=== PATIENT | female | born 1945 | race Caucasian/White ===

== ENCOUNTER → 2017-09-27 | Outpatient (CLI) | payer OTHER ==
[2016-05-25 13:31] VITALS: BP 167/100
--- NOTE | 2017-09-27 16:26 | MG ---
HISTORY: SCREENING Comparison: Multiple priors dating back to August 25, 2010 FINDINGS: Bilateral CC and MLO projections of the right and left breast were obtained. Heterogeneously dense f ibroglandular tissue is seen to be present without significant interval change. No suspicious isreal ectural distortion, mass or clustered microcalcifications can be observed to suggest malignancy. No skin thickening or nipple retraction is appreciated. No pathological lymphadenopathy can be identif ied. Benign-appearing calcifications are noted within the right and left breast. IMPRESSION: NO RADIOGRAPHIC EVIDENCE OF MALIGNANCY. ACR CATEGORY 2 - benign findings. FOLLOW-UP EXAM 1 YEAR. Diagnostic CAD was utilized and reviewed. * 0 (ZERO) - ASSESSMENT INCOMPLETE; ADDITIONAL IMAGING IS NEEDED. * 1/ (ONE) - NEGATIVE. * 2/II (TWO) - BENIGN FINDINGS. * 3/III (THREE) - PROBABLY BENIGN FINDING; SHORT INTERVAL FOLLOW-UP SUGGESTED. * 4/IV (FOUR) - SUSPICIOUS ABNORMALITY; BIOPSY SHOULD BE CONSIDERED. * 5/V - HIGHLY SUSPICIOUS OF MALIGNANCY; BIOPSY SHOULD BE PERFORMED. A NEGATIVE X-RAY REPORT SHOULD NOT DELAY BIOPSY IF A DOMINANT OR CLINICALLY SUSPICIOUS MASS IS PRESENT; 4 TO 8 PERCENT OF CANCERS ARE NOT IDENTIFIED BY X-RAY. A NEGA TIVE REPORT MAY REINFORCE THE CLINICAL IMPRESSION. ADENOSIS AND DENSE BREASTS MAY OBSCURE AN UNDERLY ING NEOPLASM. Reported By:
== END ==
LOC: RAD 11:02
PROVIDERS: ATTEND Internal Medicine
DX: Z12.31 Encounter for screening mammogram for malignant neoplasm of breast (principal)
CPT/HCPCS: 77067

== ENCOUNTER → 2018-01-11 | Outpatient (CLI) | payer OTHER ==
[2016-05-25 13:31] VITALS: BP 167/100
[2018-01-11 08:58] LABS: CREATININE 1.17 mg/dL (0.55-1.02)
--- NOTE | 2018-01-11 09:59 | CT ---
History: Abnormal uterine in vaginal bleeding Study: CT abdomen and pelvis with IV and oral contrast Findings: Thin-section axial images were obtained from the diaphragm through the symphysis after IV a nd oral contrast was given. The liver is without focal defect or intrahepatic ductal dilatation. The gallbladder is absent. There is a moderate size hiatal hernia seen. No focal distension of small or large bowel is evident the ap pendix is not appear enlarged or inflamed. The spleen, pancreas and adrenal glands appear intact. The kidneys show no hydronephrosis or solid mass. There is a 1.3 cm cyst of the left mid renal pole. No mesenteric nor retroperitoneal lymphadenopathy is evident. There is no pelvic mass seen. The urinary bladder appears intact. The uterus appears of normal size. It is retroverted new. There is a suggestion of mild prominence of the endometrial canal. Correlation with ultrasound would be useful. No pelvic adenopathy or ascites is seen. No adnexal mass is identified. The images through the lung bases appear intact. There is spondylosis within the lumbar spine. No acu te osseous abnormality is identified Impression: 1. No obvious uterine enlargement or mass. There is some prominence of the endometrial canal. Correla tion with ultrasound would be useful. No adnexal masses identified. 2. Moderate size hiatal hernia. 3. 1.3 cm left midpole renal cyst. 4. Lumbar spondylosis Reported By:
== END | disposition home or self-care (01) | DRG 761 ==
LOC: RAD 08:31
PROVIDERS: ATTEND Internal Medicine
DX: N93.9 Abnormal uterine and vaginal bleeding, unspecified (principal); R97.1 Elevated cancer antigen 125 [CA 125]; R10.30 Lower abdominal pain, unspecified; K44.9 Diaphragmatic hernia without obstruction or gangrene; N28.1 Cyst of kidney, acquired; M47.896 Other spondylosis, lumbar region
CPT/HCPCS: 36415; 74177; 82565; 84520; A4222

== ENCOUNTER 2022-08-30 17:59 | Observation (INO) ==
--- NOTE | 2022-08-30 19:46 | DR.GENAD ---
HPI Time Seen Time Seen by Provider: 08/30/22 19:46 PCP Primary Care Physician: james Complaint/Symptoms Chief Complaint:: pt states she started with coughing yesterday and is coughing up clear mucous. pt hasnt ate much in the last few days and has had some sob. Nurses notes reviewed Nurses Notes Review: Yes Source History Provided: Patient Mode of Arrival Mode of Arrival: Wheelchair Timing Onset of Chief Complaint: 08/29/22 PMH PMH Past Medical History: Yes Past Medical History: Diabetes and Hypertension Past Surgical History: Yes Surgical History: Appendectomy, Cholecystectomy and Hysterectomy Past Surgical History Comment: dnc, cataracts Family History History of Family Medical Conditions: Yes Family Medical History: Diabetes Mellitus and Coronary Artery Disease Family Medical History Comment: cva Social History Does patient currently use any type of tobacco product: No Have you used tobacco products in the last 12 months: No Type of Tobacco Use: None Does any household member use tobacco: No Alcohol Use: None Do you use any recreational Drugs:: No Lives With: Alone Lives Where: Home Infectious screening In the last 2 months have you had wt loss of >10#?: NO Have you had fever, night sweats or hemotysis?: No Have you traveled outside the country in the last 6 months?: No Isolation: Standard PE Vital Signs Vitals: Pulse Rate 83 Respiratory Rate 18 Blood Pressure [Left Arm] 134/62 Blood Pressure 158/69 O2 Sat by Pulse Oximetry 99 ROR Labs Reviewed Result Diagrams: 08/30/22 19:56 08/30/22 19:56 Laboratory: WBC 6.4 X10^3/uL (3.6-10.0) 08/30/22 19:56 RBC 2.89 X10^6/uL (3.5-5.4) L 08/30/22 19:56 Hgb 6.3 g/dL (12.0-16.0) L* 08/30/22 19:56 Hct 19.9 % (36.0-47.0) L* 08/30/22 19:56 MCV 69.1 fL (80.0-100.0) L 08/30/22 19:56 MCH 21.7 pg (27.0-34.0) L 08/30/22 19:56 MCHC 31.4 g/dL (33.0-35.0) L 08/30/22 19:56 RDW 16.8 % (11.6-16.5) H 08/30/22 19:56 Plt Count 247 X10^3/uL (150.0-450.0) 08/30/22 19:56 Plt Count Comment Adequate (ADEQUATE) 08/30/22 19:56 MPV 7.2 fL (7.4-11.0) L 08/30/22 19:56 Neut % (Auto) 69.2 % (42.0-75.0) 08/30/22 19:56 Lymph % (Auto) 16.2 % (21.0-51.0) L 08/30/22 19:56 [place] % (Auto) 12.7 % (0.0-13.0) 08/30/22 19:56 Eos % (Auto) 1.0 % (0.9-2.9) 08/30/22 19:56 Baso % (Auto) 0.9 % (0.2-1.0) 08/30/22 19:56 Neut # (Auto) 4.4 x10^3/uL (2.2-4.8) 08/30/22 19:56 Lymph # (Auto) 1.0 X10^3/uL (1.3-2.9) L 08/30/22 19:56 [place] # (Auto) 0.8 x10^3/uL (0.3-0.8) 08/30/22 19:56 Eos # (Auto) 0.1 x10^3/uL (0.0-0.2) 08/30/22 19:56 Baso # (Auto) 0.1 X10^3/uL (0.0-0.1) 08/30/22 19:56 Absolute Nucleated RBC 0.0 /100WBC 08/30/22 19:56 Plt Morphology Comment Normal (NORMAL) 08/30/22 19:56 RBC Morphology Abnormal (NORMAL) A 08/30/22 19:56 Poikilocytosis Slight A 08/30/22 19:56 Anisocytosis Slight A 08/30/22 19:56 Microcytosis Slight A 08/30/22 19:56 Sodium 135 mmol/L (136-145) L 08/30/22 19:56 Corrected Sodium 137 mmol/L (136-145) 08/30/22 19:56 Potassium 3.9 mmol/L (3.5-5.1) 08/30/22 19:56 Chloride 99 mmol/L (98-107) 08/30/22 19:56 Carbon Dioxide 23.4 mmol/L (21-32) 08/30/22 19:56 BUN 16 mg/dL (7-18) 08/30/22 19:56 Creatinine 1.53 mg/dL (0.55-1.02) H 08/30/22 19:56 Est GFR (MDRD) Af Amer 42 (>60) L 08/30/22 19:56 Est GFR (MDRD) Non-Af 35 (>60) L 08/30/22 19:56 Glucose 171 mg/dL (65-99) H 08/30/22 19:56 Calcium 8.0 mg/dL (8.5-10.1) L 08/30/22 19:56 Corrected Calcium 8.6 mg/dL (8.5-10.1) 08/30/22 19:56 Total Bilirubin 0.60 mg/dL (0.2-1.0) 08/30/22 19:56 AST 13 Units/L (15-37) L 08/30/22 19:56 ALT 11 Units/L (12-78) L 08/30/22 19:56 Alkaline Phosphatase 82 Units/L (46-116) 08/30/22 19:56 Creatine Kinase 98 Units/L (26-192) 08/30/22 19:56 Troponin I High Sens 10.5 ng/L (4.0-60.0) 08/30/22 19:56 Total Protein 7.1 g/dL (6.4-8.2) 08/30/22 19:56 Albumin 3.2 g/dL (3.4-5.0) L 08/30/22 19:56 Globulin 3.9 g/dL (2.5-4.5) 08/30/22 19:56 Albumin/Globulin Ratio 0.8 Ratio (1.1-2.1) L 08/30/22 19:56 SARS-CoV-2 (PCR) Positive (NEGATIVE) A 08/30/22 19:39 Influenza Type A (PCR) Negative (NEGATIVE) 08/30/22 19:39 Influenza Type B (PCR) Negative (NEGATIVE) 08/30/22 19:39 RSV (PCR) Negative (NEGATIVE) 08/30/22 19:39 Opioid Opioid Risk Tool Total: 0 Total Score Risk Category: Low Risk Copyright: Luisito FITCH predicting aberrant behaviors Discharge Plan Diagnosis Discharge Problem: Anemia, COVID-19 virus infection, Bronchitis Discharge Plan Patient Disposition: HOME, SELF-CARE Condition: Stable Prescriptions: No Action losartan 50 MG tablet 50 mg PO DAILY metoprolol succinate 50 MG tablet extended release 24 hr 50 mg PO DAILY levothyroxine 25 MCG tablet 25 mcg PO DAILY Health Concerns: Post Hospitalization: new medications and changes needed to prevent readmission or further decline. Pt educated and given instructions on all concerns. Plan of Treatment: Continue with present treatment and follow up plan. Pt is to keep follow up appointment as instructed and take medications as ordered. Orders to Discharge Patient Discharge Orders: Transfer (Routine); Ordered 08/30/22 Ordered By: WOJCIECH HYDE Follow ups/Referrals Follow ups/Referrals: Dionte Holland [Primary Care Provider] - 3 days
--- NOTE | 2022-08-30 19:52 | EKG ---
Test Reason : WEAKNESS Blood Pressure : */* mmHG Vent. Rate : 80 BPM Atrial Rate : 80 BPM P-R Int : 164 ms QRS Dur : 78 ms QT Int : 394 ms P-R-T Axes : 89 20 36 degrees QTc Int : 454 ms Normal sinus rhythm Nonspecific ST and T wave abnormality Abnormal ECG No previous ECGs available Confirmed by Krunal Hassan ([id number]) on 08/31/2022 10:27:12 AM Referred By: Confirmed By: Krunal Hassan
[2022-08-30 20:19] LABS: ALBUMIN 3.2 g/dL (3.4-5.0); CARBON DIOXIDE 23.4 mmol/L (21-32); COR CA(FOR HYPOALB) 8.6 mg/dL (8.5-10.1); CREATININE 1.53 mg/dL (0.55-1.02); TOTAL PROTEIN 7.1 g/dL (6.4-8.2)
[2022-08-30 20:26] LABS: BASOPHILS # (AUTO) 0.1 X10^3/uL (0.0-0.1); BASOPHILS % (AUTO) 0.9 % (0.2-1.0); EOSINOPHILS # (AUTO) 0.1 x10^3/uL (0.0-0.2); LYMPHOCYTES % (AUTO) 16.2 % (21.0-51.0); MEAN CORPUSCULAR HEMOGLOBIN 21.7 pg (27.0-34.0); MEAN CORPUSCULAR HGB CONC 31.4 g/dL (33.0-35.0); MEAN CORPUSCULAR VOLUME 69.1 fL (80.0-100.0); MEAN PLATELET VOLUME 7.2 fL (7.4-11.0); MONOCYTES # (AUTO) 0.8 x10^3/uL (0.3-0.8); MONOCYTES % (AUTO) 12.7 % (0.0-13.0); NEUTROPHILS # (AUTO) 4.4 x10^3/uL (2.2-4.8); NEUTROPHILS % (AUTO) 69.2 % (42.0-75.0); RED BLOOD COUNT 2.89 X10^6/uL (3.5-5.4); RED CELL DISTRIBUTION WIDTH 16.8 % (11.6-16.5); WHITE BLOOD COUNT 6.4 X10^3/uL (3.6-10.0)
[2022-08-30 20:28] LABS: HEMATOCRIT 19.9 % (36.0-47.0); HEMOGLOBIN 6.3 g/dL (12.0-16.0)
[2022-08-30 20:29] LABS: ANISOCYTOSIS SLIGHT; MICROCYTOSIS SLIGHT; PLATELET MORPHOLOGY COMMENT NORMAL (NORMAL); POIKILOCYTOSIS SLIGHT
[2022-08-30] MEDS ORDERED: ROCEPHIN VIAL 1 GRAM ONE (21:16)
[2022-08-30] MEDS ORDERED: TESSALON PERLES PO ONE (21:16)
[2022-08-30] MEDS ORDERED: NS 100 ML IV 100 ML ONE (21:17)
[2022-08-30] MEDS: TESSALON PERLES PO PRN (21:23)
[2022-08-30] MEDS ORDERED: ROCEPHIN 1 GRAM IV PREMIX 1 G/50 ML IV.SOLN. IV SCH (22:00)
[2022-08-30 22:02] LABS: IRON 16 ug/dL (50-175)
[2022-08-30] MEDS ORDERED: NS 250 ML IV 250 ML IV PRN (22:17)
[2022-08-30] MEDS ORDERED: NS 250 ML IV 250 ML IV ONE (22:19)
[2022-08-30] MEDS ORDERED: TYLENOL 325 MG TAB PO PRN (22:38)
[2022-08-30] MEDS ORDERED: TYLENOL 325 MG TAB PO ONE (22:41)
--- NOTE | 2022-08-30 22:50 | RAD ---
HISTORYpt states she started with coughing yesterday and is coughing up clear mucous. pt hasnt ate much in the last few days and has had some sob.STUDYCHEST, 1 VIEWCOMPARISONNone availableTECHNIQUEChest radiographic imaging, AP portable projection, 1 imageFINDINGSNo cardiomegaly.No focal airspace disease.No pleural effusion.No pneumothorax.No acute osseous abnormality.Nonspecific elevation of the right diaphragm.IMPRESSIONNo imaging findings of acute cardiopulmonary disease.Electronically signed by: Mikey English (Aug 30, 2022 22:48:09)
[2022-08-30 22:56] VITALS: BMI 28.5
[2022-08-31] MEDS ORDERED: NS 250 ML IV 250 ML IV ONE (01:17)
[2022-08-31 07:06] LABS: HEMATOCRIT 25.8 % (36.0-47.0)
[2022-08-31 07:09] LABS: HEMOGLOBIN 8.5 g/dL (12.0-16.0)
[2022-08-31] MEDS ORDERED: REMDESIVIR 200 MG in NS 250 ML IV 250 ML IV ONE (08:24)
[2022-08-31] MEDS: DUONEB 0.5 MG/3 MG (3 mL) NEB SCH ×2 (08:35→20:42)
[2022-08-31] MEDS ORDERED: PAXLOVID CO-PACK (EUA) PO SCH (09:00)
[2022-08-31] MEDS ORDERED: NS 100 ML IV 100 ML ONE (09:29)
--- NOTE | 2022-08-31 16:53 | DR.H&P ---
H&P - History & Physical for Day of: H&P Date: 08/30/22 - Chief Complaint Chief Complaint: COUGH, SHORTNESS OF BREATH, WEAKNESS, DECREASED ORAL INTAKE - History of Present Illness History of Present Illness: IS A 77 YEAR OLD PATIENT OF OURS. SHE PRESENTED TO THE ER WITH COMPLAINTS OF COUGH, SHORTNESS OF BREATH, GENERALIZED WEAKNESS, AND DECREASED ORAL INTAKE. PATIENT REPORTS THAT SYMPTOMS STARTED 2-3 DAYS AGO. COUGH IS PRODUCTIVE OF THICK, CLEAR MUCUS. HER PMH INCLUDES: DM II, HTN, APPENDECTOMY, CHOLECYSTECTOMY, HYSTERECTOMY, D&C, AND CATARACTS. ON ARRIVAL TO THE ER, VITALS WERE 98.9-83-20-99%-143/64. LABS WERE OBTAINED. WBC 6.4, RBC 2.89, HGB 6.3, HCT 19.9, PLT COUNT 247, D-DIMER 1.30, SODIUM 135, POTASSIUM 3.9, BUN 16, CREATININE 1.53, GLUCOSE 171, CALCIUM 8.0, IRON 16, TRANSFERRIN 342, FERRITIN 11, TOTAL BILI 0.60, AST 13, ALT 11, ALK PHOS 82, CREATINE KINASE 98, TROPONIN 10.5, TOTAL PROTEIN 7.1, ALBUMIN 3.2. SHE WAS POSITIVE FOR COVID-19. RSV AND INFLUENZA NEGATIVE. A CHEST XRAY WAS OBTAINED AND REVEALED: No imaging findings of acute cardiopulmonary disease. EKG REVEALED: NORMAL SINUS RHYTHM WITH HR 80. IN THE ER, SHE WAS GIVEN ROCEPHIN 1G IV X 1 DOSE. WE TYPE, SCREENED, AND CROSSMATCHED FOR TWO UNITS OF PACKED RED BLOOD CELLS. PATIENT WAS ADMITTED TO THE HOSPITAL OBSERVATION STATUS FOR FURTHER EVALUATION AND TREATMENT OF ANEMIA, COVID-19, ACUTE BRONCHITIS. SHE WAS STARTED ON NORMAL SALINE AT KVO, REM DESIVIR 100MG IV DAILY, ROCEPHIN 1G IV DAILY, DUONEBS BID, TESSALON PERLES 200MG PO TID PRN, AND HEMOCYTE PLUS 1 TABLET DAILY. WE WILL REVIEW HER HOME MEDICATIONS. WE WILL TRANSFUSE TWO UNITS OF PACKED RED BLOOD CELLS WHEN THEY ARE AVAILABLE. OTHERWISE, WE WILL FOLLOW-UP WITH AM LABS AND CONTINUE TO MONITOR. TIME SPENT ON CLINICAL ASSESSMENT, REVIEWING LABS AND IMAGING, DECISION MAKING, AND DOCUMENTATION GREATER THAN 75 MINUTES. - Past Medical History Past Medical History: Hypertension, Diabetes - Past Surgical History Surgical History: Appendectomy, Cholecystectomy, Hysterectomy Additional Surgical History: D&C, CATARACTS - Family History Family Medical History: Sudden Cardiac - Social History Does patient currently use any type of tobacco product: No Have you used tobacco products in the last 12 months: No Type of Tobacco Use: None Does any household member use tobacco: No Alcohol Use: None Drug Use: None - Medications Home Medications: codeine Allergy (Verified 08/30/22 18:00) oxycodone Allergy (Verified 08/30/22 18:38) - Review of Systems Constitutional: Chills, Weakness Eyes: No Symptoms Reported ENT: No Symptoms Reported Respiratory: Cough, Shortness of Breath, SOB with Excertion Cardiovascular: No Symptoms Reported Gastrointestinal: No Symptoms Reported Genitourinary: No Symptoms Reported Musculoskeletal: No Symptoms Reported Skin: No Symptoms Reported Neurological: Weakness - Physical Exam Vital Signs: Temperature 99.4 F Pulse Rate [Left Brachial] 88 Pulse Rate 77 Respiratory Rate 20 Blood Pressure [Left Arm] 173/77 Blood Pressure 158/69 O2 Sat by Pulse Oximetry 97 Oriented: Normal Eyes: Normal Ear: Normal Nose: Normal Throat: Normal Respiratory: Diminished Throughout Cardiovascular: Normal : Normal Auscultation: Bowel Sounds: Normal Palpation: Normal Tenderness: Normal Skin: Normal Musculoskeletal: Normal Psychiatric: Normal Mood Description: Calm Affect: Normal Speech Pattern: Clear - Assessment/Plan (1) Anemia Qualifiers: Anemia type: iron deficiency Iron deficiency anemia type: unspecified iron deficiency Qualified Code(s): D50.9 - Iron deficiency anemia, unspecified Status: Acute Plan: ADMIT, NORMAL SALINE AT KVO, REMDESIVIR 100MG IV DAILY, ROCEPHIN 1G IV DAILY, DUONEBS BID, TESSALON PERLES 200MG PO TID PRN, HEMOCYTE PLUS 1 TABLET DAILY, TRANSFUSE 2 UNITS PACKED RED BLOOD CELLS (2) COVID-19 virus infection Status: Acute (3) Bronchitis Status: Acute (4) DM II (diabetes mellitus, type II), controlled Qualifiers: Diabetes mellitus exterminator insulin use: unspecified exterminator insulin use status Diabetes mellitus complication status: with unspecified complications Qualified Code(s): E11.8 - Type 2 diabetes mellitus with unspecified complications Status: Chronic (5) HTN (hypertension) Qualifiers: Hypertension type: primary hypertension Qualified Code(s): I10 - Essential (primary) hypertension Status: Chronic - Allergies Allergies/Adverse Reactions: Allergies Allergy/AdvReac Type Severity Reaction Status Date / Time codeine Allergy Verified 08/30/22 18:00 oxycodone Allergy Verified 08/30/22 18:38
[2022-08-31] MEDS ORDERED: ROCEPHIN 1 GRAM IV PREMIX 1 G/50 ML IV.SOLN. IV SCH (21:00)
[2022-08-31] MEDS: HEMOCYTE-PLUS PO SCH (21:05)
[2022-08-31] MEDS: ROCEPHIN VIAL 1 GRAM 1 G in NS 100 ML IV 100 ML IV SCH (21:05)
[2022-08-31] MEDS: TESSALON PERLES PO PRN (21:06)
[2022-08-31] MEDS: TOPROL XL PO SCH (22:20)
[2022-08-31] MEDS: COZAAR PO SCH (22:20)
[2022-09-01] MEDS ORDERED: GLUCOPHAGE ONE ×2 (05:22→08:36)
[2022-09-01] MEDS ORDERED: SYNTHROID 50 mcg TAB ONE (05:22)
[2022-09-01] MEDS: TESSALON PERLES PO PRN (05:30)
[2022-09-01] MEDS: SYNTHROID 50 mcg TAB PO SCH (05:30)
[2022-09-01 06:30] LABS: BASOPHILS # (AUTO) 0.1 X10^3/uL (0.0-0.1); BASOPHILS % (AUTO) 0.9 % (0.2-1.0); EOSINOPHILS % (AUTO) 0.6 % (0.9-2.9); HEMATOCRIT 25.1 % (36.0-47.0); HEMOGLOBIN 8.4 g/dL (12.0-16.0); LYMPHOCYTES # (AUTO) 1.6 X10^3/uL (1.3-2.9); LYMPHOCYTES % (AUTO) 28.5 % (21.0-51.0); MEAN CORPUSCULAR HEMOGLOBIN 23.7 pg (27.0-34.0); MEAN CORPUSCULAR HGB CONC 33.4 g/dL (33.0-35.0); MEAN CORPUSCULAR VOLUME 70.9 fL (80.0-100.0); MEAN PLATELET VOLUME 7.8 fL (7.4-11.0); MONOCYTES # (AUTO) 0.8 x10^3/uL (0.3-0.8); MONOCYTES % (AUTO) 14.4 % (0.0-13.0); NEUTROPHILS # (AUTO) 3.2 x10^3/uL (2.2-4.8); NEUTROPHILS % (AUTO) 55.6 % (42.0-75.0); RED BLOOD COUNT 3.54 X10^6/uL (3.5-5.4); RED CELL DISTRIBUTION WIDTH 17.5 % (11.6-16.5); WHITE BLOOD COUNT 5.7 X10^3/uL (3.6-10.0)
[2022-09-01 06:33] LABS: ALANINE AMINOTRANSFERASE 11 Units/L (12-78); ALBUMIN 2.8 g/dL (3.4-5.0); ALKALINE PHOSPHATASE 70 Units/L (46-116); ASPARTATE AMINO TRANSFERASE 22 Units/L (15-37); BLOOD UREA NITROGEN 15 mg/dL (7-18); CALCIUM 7.8 mg/dL (8.5-10.1); CARBON DIOXIDE 25.7 mmol/L (21-32); CHLORIDE 101 mmol/L (98-107); COR CA(FOR HYPOALB) 8.8 mg/dL (8.5-10.1); CREATININE 1.36 mg/dL (0.55-1.02); SODIUM 137 mmol/L (136-145); TOTAL PROTEIN 6.3 g/dL (6.4-8.2); eGFR NON BLACK RACES 40 (>60)
[2022-09-01 07:34] LABS: PLATELET MORPHOLOGY COMMENT NORMAL (NORMAL)
[2022-09-01 07:35] LABS: ANISOCYTOSIS SLIGHT; MICROCYTOSIS SLIGHT; OVALOCYTES SLIGHT; POIKILOCYTOSIS SLIGHT; TARGET CELLS SLIGHT
[2022-09-01 07:36] LABS: BURR CELLS SLIGHT
--- NOTE | 2022-09-01 07:48 | RAD ---
HISTORYShortness of breath, COVID-19STUDYChest AP [id number]/2023FINDINGSHeart size is normal. Iwona are normal. Aorta is calcified. Right hemidiaphragm is mildly elevated. Lung huntley are clear. No pleural effusions are identified. Bony thorax is unremarkable.IMPRESSIONLungs clearElectronically signed by: NOBLE ESTES (Sep 01, 2022 07:46:55)
[2022-09-01] MEDS: GLUCOPHAGE PO SCH ×2 (08:40→18:26)
[2022-09-01] MEDS: DUONEB 0.5 MG/3 MG (3 mL) NEB SCH ×2 (08:45→21:06)
[2022-09-01] MEDS: REMDESIVIR 100 MG in NS 250 ML IV 250 ML IV SCH (09:47)
[2022-09-01] MEDS: TOPROL XL PO SCH ×2 (09:48→20:53)
[2022-09-01] MEDS: COZAAR PO SCH ×2 (09:48→20:54)
[2022-09-01] MEDS: HEMOCYTE-PLUS PO SCH (09:48)
--- NOTE | 2022-09-01 11:53 | PCM.PROG ---
Progress Note - Progress Note for Day of Date of Exam: 09/01/22 - Subjective Subjective: IS CURRENTLY OBSERVATION STATUS FOR TREATMENT OF ANEMIA, COVID-19, AND ACUTE BRONCHITIS. SHE HAS A PMH OF DM II AND HYPERTENSION. TODAY, SHE IS ALERT AND ORIENTED, LYING IN BED ON MORNING ROUNDS. SHE COMPLAINS OF GENERALIZED WEAKNESS, COUGH, AND OCCASIONAL SHORTNESS OF BREATH THIS MORNING. SHE REPORTS ONLY SLIGHT IMPROVEMENT SINCE ADMISSION. SHE HAS RECEIVED TWO UNITS OF PACKED RED BLOOD CELLS SINCE ADMISSION. ON EXAMINATION TODAY, HEART IS REGULAR IN RATE AND RHYTHM. BILATERAL LUNGS ARE NOTED WITH DIMINISHED LUNG SOUNDS THROUGHOUT. ABDOMEN IS ROUND, SOFT, AND NON-TENDER WITH NORMAL BOWEL SOUNDS NOTED IN ALL QUADRANTS. NO UPPER OR LOWER EXTREMITY EDEMA NOTED. HER VITALS THIS MORNING ARE: 98.1-84-20-95%-161/73. LABS WERE OBTAINED. WBC 5.7, RBC 3.54, HGB 8.4, HCT 25.1, PLT COUNT 205, SODIUM 137, POTASSIUM 3.9, CHLORIDE 101, BUN 15, CREATININE 1.36, GLUCOSE 101, CALCIUM 7.8, TOTAL BILI 0.40, AST 22, ALT 11, ALK PHOS 70, CRP 56.60, BNP 287, TOTAL PROTEIN 6.3, ALBUMIN 2.8. CHEST XRAY REPEATED AND REVEALED: Heart size is normal. Iwona are normal. Aorta is calcified. Right hemidiaphragm is mildly elevated. Lung huntley are clear. No pleural effusions are identified. Bony thorax is unremarkable. SHE IS CURRENTLY RECEIVING NORMAL SALINE AT KVO, REMDESIVIR 100MG IV DAILY, ROCEPHIN 1G IV DAILY, DUONEBS BID, TESSALON PERLES 200MG PO TID PRN, AND HEMOCYTE PLUS 1 TABLET DAILY. HER HOME MEDICATIONS OF LEVOTHYROXINE, LOSARTAN, METFORMIN, AND TOPROL WERE ALSO RESUMED. WE WILL CONTINUE WITH CURRENT PLAN OF CARE TODAY. OTHERWISE, WE WILL FOLLOW-UP WITH AM LABS AND CONTINUE TO MONITOR. TIME SPENT ON CLINICAL ASSESSMENT, REVIWING LABS AND IMAGING, DECISION MAKING, AND DOCUMENTATION GREATER THAN 45 MINUTES. - Past Medical Family Social History Past Med/Fam/Surg Hx: No changes since H&P Allergies: Allergies codeine Allergy (Verified 08/30/22 18:00) oxycodone Allergy (Verified 08/30/22 18:38) - Review of Systems ROS: No change since H&P - Vital Signs and I&O's Vital Signs: Temperature 98.1 F Pulse Rate [Left Brachial] 84 Pulse Rate 70 Respiratory Rate 20 Blood Pressure [Left Arm] 161/73 Blood Pressure 158/69 O2 Sat by Pulse Oximetry 95 Intake and Output: Intake & Output 08/29/22 08/30/22 08/31/22 09/01/22 11:59 11:59 11:59 11:59 Intake Total 1710 / 1710 1240 / 1240 Balance 1710 / 1710 1240 / 1240 - Physical Exam Oriented: Normal Eyes: Normal Ear: Normal Nose: Normal Throat: Normal Respiratory: Generalized, Diminished Cardiovascular: Normal : Normal Auscultation: Bowel Sounds: Normal Palpation: Normal Tenderness: Normal Skin: Normal Musculoskeletal: Normal Psychiatric: Normal Mood Description: Calm Affect: Normal Speech Pattern: Clear, Appropriate - Laboratory and Diagnostics Result Diagrams: 09/01/22 05:29 09/01/22 05:29 Labs: Laboratory WBC 5.7 X10^3/uL (3.6-10.0) 09/01/22 05:29 RBC 3.54 X10^6/uL (3.5-5.4) 09/01/22 05:29 Hgb 8.4 g/dL (12.0-16.0) L 09/01/22 05:29 Hct 25.1 % (36.0-47.0) L 09/01/22 05:29 MCV 70.9 fL (80.0-100.0) L 09/01/22 05:29 MCH 23.7 pg (27.0-34.0) L 09/01/22 05:29 MCHC 33.4 g/dL (33.0-35.0) 09/01/22 05:29 RDW 17.5 % (11.6-16.5) H 09/01/22 05:29 Plt Count 205 X10^3/uL (150.0-450.0) 09/01/22 05:29 Plt Count Comment Adequate (ADEQUATE) 09/01/22 05:29 MPV 7.8 fL (7.4-11.0) 09/01/22 05:29 Neut % (Auto) 55.6 % (42.0-75.0) 09/01/22 05:29 Lymph % (Auto) 28.5 % (21.0-51.0) 09/01/22 05:29 [place] % (Auto) 14.4 % (0.0-13.0) H 09/01/22 05:29 Eos % (Auto) 0.6 % (0.9-2.9) L 09/01/22 05:29 Baso % (Auto) 0.9 % (0.2-1.0) 09/01/22 05:29 Neut # (Auto) 3.2 x10^3/uL (2.2-4.8) 09/01/22 05:29 Lymph # (Auto) 1.6 X10^3/uL (1.3-2.9) 09/01/22 05:29 [place] # (Auto) 0.8 x10^3/uL (0.3-0.8) 09/01/22 05:29 Eos # (Auto) 0.0 x10^3/uL (0.0-0.2) 09/01/22 05:29 Baso # (Auto) 0.1 X10^3/uL (0.0-0.1) 09/01/22 05:29 Absolute Nucleated RBC 0.0 /100WBC 09/01/22 05:29 Plt Morphology Comment Normal (NORMAL) 09/01/22 05:29 RBC Morphology Abnormal (NORMAL) A 09/01/22 05:29 Poikilocytosis Slight A 09/01/22 05:29 Anisocytosis Slight A 09/01/22 05:29 Microcytosis Slight A 09/01/22 05:29 Target Cells Slight A 09/01/22 05:29 Ovalocytes Slight A 09/01/22 05:29 [place] Cells Slight A 09/01/22 05:29 D-Dimer 1.30 ug/ml (0.0-0.57) H 08/31/22 06:57 Sodium 137 mmol/L (136-145) 09/01/22 05:29 Corrected Sodium TNP 09/01/22 05:29 Potassium 3.9 mmol/L (3.5-5.1) 09/01/22 05:29 Chloride 101 mmol/L (98-107) 09/01/22 05:29 Carbon Dioxide 25.7 mmol/L (21-32) 09/01/22 05:29 BUN 15 mg/dL (7-18) 09/01/22 05:29 Creatinine 1.36 mg/dL (0.55-1.02) H 09/01/22 05:29 Est GFR (MDRD) Af Amer 48 (>60) L 09/01/22 05:29 Est GFR (MDRD) Non-Af 40 (>60) L 09/01/22 05:29 Glucose 101 mg/dL (65-99) H 09/01/22 05:29 POC Glucose (mg/dL) 126 mg/dL (65-99) H 09/01/22 11:46 Calcium 7.8 mg/dL (8.5-10.1) L 09/01/22 05:29 Corrected Calcium 8.8 mg/dL (8.5-10.1) 09/01/22 05:29 Iron 16 ug/dL (50-175) L 08/30/22 19:56 Transferrin 342 mg/dL (202-364) 08/30/22 19:56 Ferritin 11 ng/mL (8-252) 08/30/22 19:56 Total Bilirubin 0.40 mg/dL (0.2-1.0) 09/01/22 05:29 AST 22 Units/L (15-37) 09/01/22 05:29 ALT 11 Units/L (12-78) L 09/01/22 05:29 Alkaline Phosphatase 70 Units/L (46-116) 09/01/22 05:29 Creatine Kinase 98 Units/L (26-192) 08/30/22 19:56 Troponin I High Sens 10.5 ng/L (4.0-60.0) 08/30/22 19:56 C-Reactive Protein 56.60 mg/L (0-3.0) H 09/01/22 05:29 B-Natriuretic Peptide 287 pg/mL (0-79) H 09/01/22 05:29 Total Protein 6.3 g/dL (6.4-8.2) L 09/01/22 05:29 Albumin 2.8 g/dL (3.4-5.0) L 09/01/22 05:29 Globulin 3.5 g/dL (2.5-4.5) 09/01/22 05:29 Albumin/Globulin Ratio 0.8 Ratio (1.1-2.1) L 09/01/22 05:29 Vitamin B12 1538 pg/mL (193-986) H 08/30/22 19:56 Folate > 20.0 ng/mL (>8.6) 08/30/22 19:56 SARS-CoV-2 (PCR) Positive (NEGATIVE) A 08/30/22 19:39 Influenza Type A (PCR) Negative (NEGATIVE) 08/30/22 19:39 Influenza Type B (PCR) Negative (NEGATIVE) 08/30/22 19:39 RSV (PCR) Negative (NEGATIVE) 08/30/22 19:39 Blood Type A POSITIVE 08/30/22 20:18 Blood Type A POSITIVE 08/30/22 20:18 Antibody Screen Negative 08/30/22 20:18 Crossmatch See Detail 08/30/22 20:18 - Plan (1) Anemia Status: Acute Qualifiers: Anemia type: iron deficiency Iron deficiency anemia type: unspecified iron deficiency Qualified Code(s): D50.9 - Iron deficiency anemia, unspecified Plan: NORMAL SALINE AT KVO, REMDESIVIR 100MG IV DAILY, ROCEPHIN 1G IV DAILY, DUONEBS BID, TESSALON PERLES 200MG PO TID PRN, HEMOCYTE PLUS 1 TABLET DAILY, RESUME HOME MEDS (2) COVID-19 virus infection Status: Acute (3) Bronchitis Status: Acute (4) DM II (diabetes mellitus, type II), controlled Status: Chronic Qualifiers: Diabetes mellitus fdc insulin use: unspecified manager terminal insulin use status Diabetes mellitus complication status: with unspecified complications Qualified Code(s): E11.8 - Type 2 diabetes mellitus with unspecified complications (5) HTN (hypertension) Status: Chronic Qualifiers: Hypertension type: primary hypertension Qualified Code(s): I10 - Essential (primary) hypertension
[2022-09-01] MEDS: ROCEPHIN VIAL 1 GRAM 1 G in NS 100 ML IV 100 ML IV SCH (21:04)
[2022-09-02] MEDS ORDERED: GLUCOPHAGE ONE (05:13)
[2022-09-02] MEDS: SYNTHROID 50 mcg TAB PO SCH (06:02)
[2022-09-02] MEDS: GLUCOPHAGE PO SCH (06:02)
[2022-09-02 06:19] LABS: BASOPHILS % (AUTO) 0.6 % (0.2-1.0); EOSINOPHILS # (AUTO) 0.3 x10^3/uL (0.0-0.2); EOSINOPHILS % (AUTO) 5.3 % (0.9-2.9); HEMATOCRIT 26.4 % (36.0-47.0); HEMOGLOBIN 8.8 g/dL (12.0-16.0); LYMPHOCYTES # (AUTO) 1.9 X10^3/uL (1.3-2.9); LYMPHOCYTES % (AUTO) 29.8 % (21.0-51.0); MEAN CORPUSCULAR HEMOGLOBIN 23.9 pg (27.0-34.0); MEAN CORPUSCULAR HGB CONC 33.4 g/dL (33.0-35.0); MEAN CORPUSCULAR VOLUME 71.5 fL (80.0-100.0); MEAN PLATELET VOLUME 7.7 fL (7.4-11.0); MONOCYTES # (AUTO) 0.6 x10^3/uL (0.3-0.8); MONOCYTES % (AUTO) 10.2 % (0.0-13.0); NEUTROPHILS # (AUTO) 3.4 x10^3/uL (2.2-4.8); NEUTROPHILS % (AUTO) 54.1 % (42.0-75.0); RED BLOOD COUNT 3.69 X10^6/uL (3.5-5.4); WHITE BLOOD COUNT 6.2 X10^3/uL (3.6-10.0)
--- NOTE | 2022-09-02 06:25 | RAD ---
HISTORYCOVID-19, shortness of breathSTUDYChest AP [id number]/04/2023FINDINGSHear t size is normal. Iwona are normal. Lung huntley are clear. No pleural effusions are identified. Bony thorax is unremarkable.IMPRESSIONNo significant abnormality identifiedElectronically signed by: NOBLE ESTES (Sep 02, 2022 06:24:53)
[2022-09-02 06:31] LABS: ALANINE AMINOTRANSFERASE 11 Units/L (12-78); ALBUMIN 2.8 g/dL (3.4-5.0); ALKALINE PHOSPHATASE 69 Units/L (46-116); ASPARTATE AMINO TRANSFERASE 24 Units/L (15-37); BLOOD UREA NITROGEN 17 mg/dL (7-18); CALCIUM 7.8 mg/dL (8.5-10.1); CARBON DIOXIDE 23.9 mmol/L (21-32); CHLORIDE 102 mmol/L (98-107); COR CA(FOR HYPOALB) 8.8 mg/dL (8.5-10.1); CREATININE 1.27 mg/dL (0.55-1.02); SODIUM 137 mmol/L (136-145); TOTAL PROTEIN 6.3 g/dL (6.4-8.2); eGFR NON BLACK RACES 43 (>60)
[2022-09-02 06:45] LABS: HYPOCHROMASIA 1+; PLATELET MORPHOLOGY COMMENT NORMAL (NORMAL); POIKILOCYTOSIS SLIGHT
[2022-09-02 06:46] LABS: ANISOCYTOSIS SLIGHT; MICROCYTOSIS SLIGHT; OVALOCYTES SLIGHT; SCHISTOCYTES SLIGHT
[2022-09-02] MEDS ORDERED: POTASSIUM CHL 60 MEQ/NS 0.45% 500 ML IV PRN (07:27)
[2022-09-02] MEDS ORDERED: POTASSIUM CHLORIDE LIQ 20 MEQ UDC PO PRN (07:27)
[2022-09-02] MEDS ORDERED: K-DUR TAB 20 MEQ PO PRN (07:27)
[2022-09-02] MEDS ORDERED: POTASSIUM CHL 40 MEQ/NS 0.45% 500 ML IV PRN (07:27)
[2022-09-02] MEDS ORDERED: MAGNESIUM SULFATE 1 GRAM/100 mL PREMIX 1 G/100 ML BAG IV PRN (07:27)
[2022-09-02] MEDS ORDERED: KLOR-CON PO PRN (07:27)
[2022-09-02] MEDS ORDERED: K-RIDER 10 MEQ/NS 100 ML 10 MEQ/100 ML BAG IV PRN (07:27)
[2022-09-02] MEDS ORDERED: MICRO K EXTEN CAP 10 MEQ PO PRN (07:27)
[2022-09-02] MEDS: DUONEB 0.5 MG/3 MG (3 mL) NEB SCH (08:29)
[2022-09-02] MEDS ORDERED: REMDESIVIR 200 MG in NS 250 ML IV 250 ML IV NR (10:00)
[2022-09-02] MEDS: TOPROL XL PO SCH (10:16)
[2022-09-02] MEDS: COZAAR PO SCH (10:16)
[2022-09-02] MEDS: REMDESIVIR 100 MG in NS 250 ML IV 250 ML IV SCH (10:17)
[2022-09-02] MEDS: HEMOCYTE-PLUS PO SCH (10:17)
[2022-09-02 11:17] VITALS: BP 174/71
== END 2022-09-02 12:38 | disposition home or self-care (01) ==
LOC: ER 17:59 → MED/SURG 17:59
PROVIDERS: ADMIT Family Medicine; ATTEND Internal Medicine
DX: J20.8 Acute bronchitis due to other specified organisms; K92.1 Melena; Z66 Do not resuscitate; R94.31 Abnormal electrocardiogram [ECG] [EKG]; D50.8 Other iron deficiency anemias; R79.82 Elevated C-reactive protein (CRP); R79.1 Abnormal coagulation profile; E11.65 Type 2 diabetes mellitus with hyperglycemia; I10 Essential (primary) hypertension; R06.02 Shortness of breath; U07.1 COVID-19

== ENCOUNTER 2023-06-15 10:21 | Inpatient (IN) ==
[2023-06-15] MEDS ORDERED: READI-CAT 2 ONE (12:14)
[2023-06-15] MEDS: NS 1,000 ML IV 1,000 ML with MVI INJ (ADULT) 10 ML IV SCH ×2 (13:44)
[2023-06-15 13:45] LABS: BASOPHILS # (AUTO) 0.1 X10^3/uL (0.0-0.1); BASOPHILS % (AUTO) 1.1 % (0.2-1.0); EOSINOPHILS # (AUTO) 0.1 x10^3/uL (0.0-0.2); EOSINOPHILS % (AUTO) 0.7 % (0.9-2.9); HEMATOCRIT 30.8 % (36.0-47.0); HEMOGLOBIN 10.2 g/dL (12.0-16.0); LYMPHOCYTES # (AUTO) 1.8 X10^3/uL (1.3-2.9); LYMPHOCYTES % (AUTO) 17.6 % (21.0-51.0); MEAN CORPUSCULAR HEMOGLOBIN 30.1 pg (27.0-34.0); MEAN CORPUSCULAR HGB CONC 33.1 g/dL (33.0-35.0); MEAN PLATELET VOLUME 7.9 fL (7.4-11.0); MONOCYTES # (AUTO) 0.9 x10^3/uL (0.3-0.8); MONOCYTES % (AUTO) 8.7 % (0.0-13.0); NEUTROPHILS # (AUTO) 7.5 x10^3/uL (2.2-4.8); NEUTROPHILS % (AUTO) 71.9 % (42.0-75.0); PLATELET COUNT 218 X10^3/uL (150.0-450.0); RED BLOOD COUNT 3.38 X10^6/uL (3.5-5.4); RED CELL DISTRIBUTION WIDTH 18.2 % (11.6-16.5); WHITE BLOOD COUNT 10.4 X10^3/uL (3.6-10.0)
[2023-06-15 13:53] LABS: ALANINE AMINOTRANSFERASE 29 Units/L (12-78); ALBUMIN 2.4 g/dL (3.4-5.0); ALKALINE PHOSPHATASE 390 Units/L (46-116); ASPARTATE AMINO TRANSFERASE 151 Units/L (15-37); BLOOD UREA NITROGEN 23 mg/dL (7-18); CALCIUM 8.5 mg/dL (8.5-10.1); CARBON DIOXIDE 29.3 mmol/L (21-32); CHLORIDE 99 mmol/L (98-107); COR CA(FOR HYPOALB) 9.8 mg/dL (8.5-10.1); CREATININE 1.78 mg/dL (0.55-1.02); GLUCOSE 110 mg/dL (65-99); POTASSIUM 3.5 mmol/L (3.5-5.1); SODIUM 137 mmol/L (136-145); TOTAL PROTEIN 6.2 g/dL (6.4-8.2); eGFR NON BLACK RACES 29 (>60)
[2023-06-15] MEDS: NYSTATIN POWDER TOP SCH ×2 (14:49→21:06)
[2023-06-15] MEDS ORDERED: OMNIPAQUE 350 mg/mL 100 mL BTL 100 ML ONE (15:04)
[2023-06-15] MEDS ORDERED: ANTIVERT TAB 25 MG PO PRN (17:08)
[2023-06-15] MEDS ORDERED: NovoLIN R (or HumuLIN R) SUBCUT PRN (17:10)
[2023-06-15] MEDS ORDERED: CONSULT PHARMACY - POTASSIUM & MAGNESIUM XX SCH (21:00)
[2023-06-15] MEDS ORDERED: K-DUR TAB 20 MEQ PO SCH (21:00)
[2023-06-15] MEDS: TOPROL XL PO SCH (21:01)
[2023-06-15] MEDS: SNACK - Diabetic Appropriate PO SCH (21:06)
--- NOTE | 2023-06-15 22:12 | CT ---
EXAM:ABDOMEN/PELVIS W/O CONHISTORY:ABDOMINAL PAIN;COMPARISON:Report only from January 11, 2018TECHNIQUE:Non-contrasted axial CT images of the abdomen and pelvis were obtained and reformatted into coronal and sagittal planes for further evaluation. Enteric contrast was administered.Radiation dose: 279.03 mGy-cm total DLPFINDINGS:Calcified and noncalcified lung nodules; largest noncalcified nodule is in the left lower lobe measuring 5.5 mm. Largest noncalcified nodule in the right lung base measures 7 mm.Small sliding-type hiatal hernia.Stomach appears normal.Heterogeneous low attenuation areas within the liver parenchyma.Spleen, pancreas and adrenal glands are unremarkable.Status post cholecystectomy without biliary dilatation.No intra or extrahepatic biliary dilatation.Cyst in the interpolar region of the left kidney.Otherwise, unremarkable appearance of the kidneys and ureters.No hydronephrosis, hydroureter or ureteral calculus.Unremarkable appearance of the urinary bladder.Short-segment focal colonic wall thickening, over a 5 cm segment, involving the cecum with the colonic wall measuring up to 1.5 cm in width. Lymph nodes in the mesentery adjacent to the cecum; largest measuring 1.8 x 1.2 cm.Unremarkable appearance of the small bowel.Status post hysterectomy.No evidence of acute appendicitis.No pneumoperitoneum.No significant fluid collection.No acute osseous abnormality.Pumr-ag-rjpboyha multilevel degenerative disc and joint changes.Grade 1 anterolisthesis of L4 on L5; secondary to posterior degenerative changes.IMPRESSION:1. 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 Additionally, there are heterogeneous low attenuation areas in the liver which are concerning for metastatic foci. Recommend dedicated liver imaging for further characterization.2. Calcified and noncalcified nodules in the imaged portion of the lung parenchyma. Findings could represent the sequela of granulomatous disease and metastatic disease; given the findings in impression 1.3. Small sliding-type hiatal hernia.THIS IS AN ELECTRONICALLY VERIFIED FINAL [id number]/[id number] 10:09 PM - Electronically signed by Mikey English MD
[2023-06-16] MEDS: NS 1,000 ML IV 1,000 ML with MVI INJ (ADULT) 10 ML IV SCH ×4 (01:23→18:51)
[2023-06-16 04:00] LABS: BILIRUBIN,URINE NEGATIVE (NEGATIVE); BLOOD/HEMOGLOBIN,URINE NEGATIVE (NEGATIVE); GLUCOSE, URINE NEGATIVE (NEGATIVE); KETONES,URINE NEGATIVE (NEGATIVE); LEUKOCYTE ESTERASE ,URINE NEGATIVE (NEGATIVE); NITRITES,URINE NEGATIVE (NEGATIVE); PROTEIN,URINE 2+ (NEGATIVE); UROBILINOGEN,URINE 1+ (NORMAL)
[2023-06-16 04:05] LABS: APPEARANCE,URINE CLEAR (CLEAR); COLOR,URINE AMBER (YELLOW)
[2023-06-16 04:09] LABS: BACTERIA,URINE TRACE /HPF (NEGATIVE); HYALINE CASTS, URINE MODERATE /LPF (NEGATIVE); RBC,URINE 0-2 /HPF (0-3); SQUAMOUS EPITHELIAL CELL,UR FEW /HPF (NEGATIVE)
[2023-06-16] MEDS: TYLENOL 325 MG TAB PO PRN ×3 (05:40→22:27)
[2023-06-16 06:35] LABS: BASOPHILS # (AUTO) 0.1 X10^3/uL (0.0-0.1); BASOPHILS % (AUTO) 1.3 % (0.2-1.0); EOSINOPHILS # (AUTO) 0.2 x10^3/uL (0.0-0.2); EOSINOPHILS % (AUTO) 2.4 % (0.9-2.9); HEMATOCRIT 27.5 % (36.0-47.0); HEMOGLOBIN 9.2 g/dL (12.0-16.0); LYMPHOCYTES # (AUTO) 1.7 X10^3/uL (1.3-2.9); LYMPHOCYTES % (AUTO) 22.1 % (21.0-51.0); MEAN CORPUSCULAR HEMOGLOBIN 30.5 pg (27.0-34.0); MEAN CORPUSCULAR HGB CONC 33.3 g/dL (33.0-35.0); MEAN CORPUSCULAR VOLUME 91.4 fL (80.0-100.0); MEAN PLATELET VOLUME 8.2 fL (7.4-11.0); MONOCYTES # (AUTO) 0.8 x10^3/uL (0.3-0.8); MONOCYTES % (AUTO) 10.6 % (0.0-13.0); NEUTROPHILS # (AUTO) 4.9 x10^3/uL (2.2-4.8); NEUTROPHILS % (AUTO) 63.6 % (42.0-75.0); PLATELET COUNT 179 X10^3/uL (150.0-450.0); RED BLOOD COUNT 3.01 X10^6/uL (3.5-5.4); RED CELL DISTRIBUTION WIDTH 17.6 % (11.6-16.5); WHITE BLOOD COUNT 7.7 X10^3/uL (3.6-10.0)
[2023-06-16 06:53] LABS: ALANINE AMINOTRANSFERASE 25 Units/L (12-78); ALKALINE PHOSPHATASE 333 Units/L (46-116); ASPARTATE AMINO TRANSFERASE 148 Units/L (15-37); BLOOD UREA NITROGEN 21 mg/dL (7-18); CARBON DIOXIDE 25.8 mmol/L (21-32); CHLORIDE 102 mmol/L (98-107); COR CA(FOR HYPOALB) 9.6 mg/dL (8.5-10.1); CREATININE 1.48 mg/dL (0.55-1.02); GLUCOSE 83 mg/dL (65-99); POTASSIUM 3.8 mmol/L (3.5-5.1); SODIUM 137 mmol/L (136-145); TOTAL PROTEIN 5.3 g/dL (6.4-8.2); eGFR NON BLACK RACES 36 (>60)
--- NOTE | 2023-06-16 07:36 | RAD ---
EXAM:Portable chestHISTORY:Shortness of breathCOMPARISON:09/02/2022FINDINGS:Hear t size is normal. Iwona are normal. Lung huntley are clear. No pleural effusions are identified. Bony thorax is unremarkable.IMPRESSION:Lungs clearTHIS IS AN ELECTRONICALLY VERIFIED FINAL [id number]/2023 7:33 AM - Electronically signed by Clarence Vargas MD
[2023-06-16] MEDS ORDERED: GLUCOPHAGE ONE (08:34)
[2023-06-16] MEDS: GLUCOPHAGE PO SCH (08:50)
[2023-06-16] MEDS: HEMOCYTE-PLUS PO SCH (08:53)
[2023-06-16] MEDS: COZAAR PO SCH ×2 (08:53→09:01)
[2023-06-16] MEDS: FOLIC ACID TAB 1 MG PO SCH (08:54)
[2023-06-16] MEDS: SYNTHROID 50 mcg TAB PO SCH (09:01)
[2023-06-16] MEDS: TOPROL XL PO SCH ×2 (09:01→20:43)
[2023-06-16] MEDS: NYSTATIN POWDER TOP SCH ×2 (09:02→20:47)
--- NOTE | 2023-06-16 10:48 | DR.UPDATE ---
H&P Update Prescription drug monitoring program results: PDMP reviewed and no concerns identified H&P Reviewed: Yes Any changes to H&P?: Yes Changes noted:: PRESENTED TO THE HOSPITAL A DIRECT ADMISSION FOR FURTHER EVALUATION AND TREATMENT OF SEVERE ABDOMINAL PAIN, DECREASED APPETITE, WEIGHT LOSS, INCREASED FATIGUE, GENERALIZED WEAKNESS, AND BILATERAL LOWER EXTREMITY SWELLING. EXAMINATION IN THE OFFICE REVEALED 2+ EDEMA OF BILATERAL LOWER EXTREMITIES. PATIENT DESCRIBES THE ABDOMINAL PAIN INTERMITTENT, RUQ PAIN, AND CRAMPING. SHE RATED THE PAIN A 6/10 ON EXAMINATION. SHE REPORTS THAT HER SYMPTOMS STARTED ABOUT A MONTH AND A HALF AGO. SHE WAS STARATED ON CEPHALEXIN 250MG BID ON 06/13 FOR TREATMENT OF CELLULITIS OF THE RIGHT FOOT. REDNESS OF THE FOOT HAS IMPROVED, HOWEVER, LOWER EXTREMITIES REMAIN EDEMATOUS. ON ARRIVAL TO THE HOSPITAL, HER VITALS WERE: 98.2-86-20-100%-123/57. LABS WERE OBTAINED. WBC 10.4, RBC 3.38, HGB 10.2, HCT 30.8, PLT COUNT 218, SODIUM 137, POTASSIUM 3.5, CHLORIDE 99, CARBON DIOXIDE 29.3, BUN 23, CREATININE 1.78, GLUCOSE 110, A1C 5.0, CALCIUM 8.5, MAGNESIUM 1.9, TOTAL BILI 2.20, AST 151, ALT 29, ALK PHOS 390, BNP 542, TOTAL PROTEIN 6.2, ALBUMIN 2.4. A URINALYSIS WAS OBTAINED AND REVEALED: WBC NONE SEEN, RBC 0-2, BACTERIA TRACE, NITRITES NEGATIVE, LEUKOCYTES NEGATIVE. A URINE CULTURE WAS SET UP. ON ADMISSION, SHE WAS STARTED ON NORMAL SALINE WITH MULTIVITAMINS AT 80 ML/HR, OTBS ACHS, HUMULIN R SLIDING SCALE, AND NYSTATIN POWDER BID. HER HOME MEDICATIONS OF FOLIC ACID, SYNTHROID, COZAAR, MECLIZINE PRN, METFORMIN, TOPROL XL, HEMOCYTE PLUS WERE RESUMED. WE PLAN TO OBTAIN A CHEST XRAY AND AN ABDOMEN/PELVIS CT WITHOUT CONTRAST DUE TO HER RENAL FUNCTION. OTHERWISE, WE PLAN TO FOLLOW UP WITH AM LABS AND CONTINUE TO MONITOR. TIME SPENT ON CLINICAL ASSESSMENT, REVIEWING LABS AND IMAGING, DECISION MAKING, AND DOCUMENTATION GREATER THAN 75 MINUTES. Patient was examined?: Yes Vital Signs: Temp Pulse Resp BP Pulse Ox O2 Del Method 06/16/23 06:40 15 06/16/23 05:40 15 06/16/23 04:00 97.6 F 73 18 121/60 97 Room Air 06/15/23 23:55 97.0 F L 74 18 106/55 97 Room Air 06/15/23 20:00 97.5 F L 77 18 112/59 99 Room Air 06/15/23 20:29 Room Air 06/15/23 19:00 Room Air 06/15/23 15:28 98.0 F 77 22 101/55 98 Room Air 06/15/23 11:35 Room Air 06/15/23 12:33 Room Air 06/15/23 11:30 98.2 F 86 20 123/57 100 Room Air
[2023-06-16] MEDS ORDERED: NS 1,000 ML IV 1,000 ML ONE (16:51)
--- NOTE | 2023-06-16 17:00 | VAS ---
EXAM:LOWER EXT VENOUS, BILATERALHISTORY:B/L LOWER EXT EDEMA, CALF TENDERNESS;COMPARISON:None available.TECHNIQUE:Multiple perez scale and color flow Doppler images of the deep venous system were obtained of the right and left lower extremity.FINDINGS:The deep venous system of the right and left lower extremities were evaluated from the level of the common femoral vein through the popliteal vein. Normal color flow and augmentation can be observed. In addition, normal compression is seen throughout the deep venous system.IMPRESSION:Negative for DVT.THIS IS AN ELECTRONICALLY VERIFIED FINAL [id number] 4:56 PM - Electronically signed by Rk Banuelos MD
[2023-06-16] MEDS ORDERED: SUPREP BOWEL PREP KIT PO SCH (18:15)
[2023-06-16] MEDS ORDERED: CITROMA PO ONE (18:30)
[2023-06-16] MEDS ORDERED: DULCOLAX TAB EC 5 MG PO ONE (19:00)
[2023-06-16] MEDS: SNACK - Diabetic Appropriate PO SCH (20:59)
--- NOTE | 2023-06-16 23:07 | CT ---
EXAM:CHEST W/O CONHISTORY:SOB, WT LOSS, ;COMPARISON:Chest radiograph from June 15, 2023TECHNIQUE:Axial non-contrast images of the chest with coronal and sagittal reformats.Radiation dose: 196.41 mGy-cm total DLPFINDINGS:No pericardial effusion.Aorta and pulmonary arteries are normal in caliber.No hilar or mediastinal adenopathy.Central airways are widely patent.Small sliding-type hiatal hernia.Multiple ill-defined low-attenuation foci in the liver parenchyma.Multiple lung nodules; largest in the right upper lobe measures 1 cm and the largest in the left upper lobe measures 1 cm.Few calcified pulmonary nodules; consistent with the sequela of a previous granulomatous infection.No effusion or pneumothorax.No acute osseous abnormality.IMPRESSION:Multiple pulmonary nodules. Given the patient's ill-defined low-attenuation foci in the liver, concerning for metastatic disease, and the prior day CT with concern for colonic cancer, the pulmonary nodules are concerning for metastatic disease.THIS IS AN ELECTRONICALLY VERIFIED FINAL [id number]/2023 11:04 PM - Electronically signed by Mikey English MD
[2023-06-17] MEDS ORDERED: HIBICLENS WASH EXT ONE (03:22)
[2023-06-17] MEDS: NS 1,000 ML IV 1,000 ML with MVI INJ (ADULT) 10 ML IV SCH ×6 (05:14→19:59)
[2023-06-17 05:30] LABS: BASOPHILS # (AUTO) 0.1 X10^3/uL (0.0-0.1); BASOPHILS % (AUTO) 1.5 % (0.2-1.0); EOSINOPHILS # (AUTO) 0.2 x10^3/uL (0.0-0.2); EOSINOPHILS % (AUTO) 2.2 % (0.9-2.9); HEMATOCRIT 29.3 % (36.0-47.0); HEMOGLOBIN 9.6 g/dL (12.0-16.0); LYMPHOCYTES # (AUTO) 1.9 X10^3/uL (1.3-2.9); LYMPHOCYTES % (AUTO) 23.5 % (21.0-51.0); MEAN CORPUSCULAR HEMOGLOBIN 30.1 pg (27.0-34.0); MEAN CORPUSCULAR HGB CONC 32.8 g/dL (33.0-35.0); MEAN CORPUSCULAR VOLUME 91.6 fL (80.0-100.0); MEAN PLATELET VOLUME 7.5 fL (7.4-11.0); MONOCYTES # (AUTO) 0.8 x10^3/uL (0.3-0.8); MONOCYTES % (AUTO) 9.6 % (0.0-13.0); NEUTROPHILS # (AUTO) 5.2 x10^3/uL (2.2-4.8); NEUTROPHILS % (AUTO) 63.2 % (42.0-75.0); PLATELET COUNT 201 X10^3/uL (150.0-450.0); RED CELL DISTRIBUTION WIDTH 17.8 % (11.6-16.5); WHITE BLOOD COUNT 8.2 X10^3/uL (3.6-10.0)
[2023-06-17 06:00] LABS: ANISOCYTOSIS SLIGHT; PLATELET MORPHOLOGY COMMENT NORMAL (NORMAL)
[2023-06-17 06:01] LABS: ALANINE AMINOTRANSFERASE 27 Units/L (12-78); ALKALINE PHOSPHATASE 360 Units/L (46-116); ASPARTATE AMINO TRANSFERASE 167 Units/L (15-37); BLOOD UREA NITROGEN 19 mg/dL (7-18); CALCIUM 7.9 mg/dL (8.5-10.1); CARBON DIOXIDE 22.1 mmol/L (21-32); CHLORIDE 102 mmol/L (98-107); COR CA(FOR HYPOALB) 9.5 mg/dL (8.5-10.1); CREATININE 1.34 mg/dL (0.55-1.02); GLUCOSE 92 mg/dL (65-99); POTASSIUM 3.8 mmol/L (3.5-5.1); SODIUM 136 mmol/L (136-145); TOTAL PROTEIN 5.4 g/dL (6.4-8.2); eGFR NON BLACK RACES 41 (>60)
[2023-06-17] MEDS ORDERED: CONSULT PHARMACY - POTASSIUM & MAGNESIUM XX SCH ×2 (07:00)
[2023-06-17] MEDS: COZAAR PO SCH (08:30)
[2023-06-17] MEDS: TOPROL XL PO SCH ×2 (08:31→21:19)
[2023-06-17] MEDS: SYNTHROID 50 mcg TAB PO SCH (08:31)
[2023-06-17] MEDS: FOLIC ACID TAB 1 MG PO SCH ×2 (08:31→10:43)
[2023-06-17] MEDS: NYSTATIN POWDER TOP SCH ×2 (08:31→20:09)
[2023-06-17] MEDS: HEMOCYTE-PLUS PO SCH ×2 (08:32→10:44)
[2023-06-17] MEDS ORDERED: K-DUR TAB 20 MEQ PO SCH (09:00)
[2023-06-17] MEDS ORDERED: NS 1,000 ML IV 1,000 ML ONE (09:24)
[2023-06-17] MEDS ORDERED: STERILE WATER IRRIGATION IR ONE (13:48)
[2023-06-17] MEDS: TYLENOL 325 MG TAB PO PRN (15:49)
[2023-06-17] MEDS: SNACK - Diabetic Appropriate PO SCH (21:21)
[2023-06-18] MEDS: TYLENOL 325 MG TAB PO PRN ×2 (06:07→15:33)
[2023-06-18 06:08] LABS: BASOPHILS # (AUTO) 0.1 X10^3/uL (0.0-0.1); BASOPHILS % (AUTO) 1.3 % (0.2-1.0); EOSINOPHILS # (AUTO) 0.2 x10^3/uL (0.0-0.2); EOSINOPHILS % (AUTO) 2.9 % (0.9-2.9); HEMATOCRIT 28.1 % (36.0-47.0); HEMOGLOBIN 9.2 g/dL (12.0-16.0); LYMPHOCYTES # (AUTO) 1.9 X10^3/uL (1.3-2.9); LYMPHOCYTES % (AUTO) 23.2 % (21.0-51.0); MEAN CORPUSCULAR HEMOGLOBIN 30.1 pg (27.0-34.0); MEAN CORPUSCULAR HGB CONC 32.7 g/dL (33.0-35.0); MEAN CORPUSCULAR VOLUME 92.3 fL (80.0-100.0); MEAN PLATELET VOLUME 7.4 fL (7.4-11.0); MONOCYTES # (AUTO) 0.7 x10^3/uL (0.3-0.8); NEUTROPHILS # (AUTO) 5.2 x10^3/uL (2.2-4.8); NEUTROPHILS % (AUTO) 63.6 % (42.0-75.0); PLATELET COUNT 213 X10^3/uL (150.0-450.0); RED BLOOD COUNT 3.04 X10^6/uL (3.5-5.4); RED CELL DISTRIBUTION WIDTH 17.7 % (11.6-16.5); WHITE BLOOD COUNT 8.2 X10^3/uL (3.6-10.0)
[2023-06-18 06:21] LABS: ALANINE AMINOTRANSFERASE 27 Units/L (12-78); ALKALINE PHOSPHATASE 342 Units/L (46-116); ASPARTATE AMINO TRANSFERASE 173 Units/L (15-37); BLOOD UREA NITROGEN 15 mg/dL (7-18); CALCIUM 7.8 mg/dL (8.5-10.1); CHLORIDE 104 mmol/L (98-107); COR CA(FOR HYPOALB) 9.4 mg/dL (8.5-10.1); CREATININE 1.23 mg/dL (0.55-1.02); GLUCOSE 74 mg/dL (65-99); SODIUM 137 mmol/L (136-145); TOTAL PROTEIN 5.4 g/dL (6.4-8.2); eGFR NON BLACK RACES 45 (>60)
--- NOTE | 2023-06-18 08:52 | DR.PROGNOT ---
HOSPITAL PROGRESS NOTE Progress Note for Day of: Progress Note Date: 06/18/23 Chief Complaint Chief Complaint: c/o being weak and tired , poor appetite . having epigastric and RUQ pain and mild nausea . colonoscopy showed two lesions in the cecum and ascending colon suspicious for malignancy . Bilir 2 Alk phos 342 . afebrile Past Medical Family Social History Allergies: Allergies codeine Allergy (Verified 08/30/22 18:00) oxycodone Allergy (Verified 08/30/22 18:38) Vital Signs Vital Signs: Vital Signs Temperature 97.6 F Pulse Rate [Left Brachial] 78 Respiratory Rate 18 Respiratory Rate 17 Respiratory Rate 18 Blood Pressure [Left Arm] 110/61 O2 Sat by Pulse Oximetry 97 Physical Exam Oriented: Normal Eyes: Normal Ear: Normal Nose: Normal Respiratory: Normal Cardiovascular: Normal GI:Auscultation: Normal GI: Tenderness: Diffuse (soft abdomen with diffuse tenderness ..BS+) Speech Pattern: Clear and Appropriate Laboratory and Diagnostics 06/18/23 05:45 06/18/23 05:45 Labs: 06/16/23 03:45 Urine,Clean Catch Urine Culture - Preliminary Laboratory WBC 8.2 X10^3/uL (3.6-10.0) 06/18/23 05:45 RBC 3.04 X10^6/uL (3.5-5.4) L 06/18/23 05:45 Hgb 9.2 g/dL (12.0-16.0) L 06/18/23 05:45 Hct 28.1 % (36.0-47.0) L 06/18/23 05:45 MCV 92.3 fL (80.0-100.0) 06/18/23 05:45 MCH 30.1 pg (27.0-34.0) 06/18/23 05:45 MCHC 32.7 g/dL (33.0-35.0) L 06/18/23 05:45 RDW 17.7 % (11.6-16.5) H 06/18/23 05:45 Plt Count 213 X10^3/uL (150.0-450.0) 06/18/23 05:45 Plt Count Comment Adequate (ADEQUATE) 06/17/23 05:15 MPV 7.4 fL (7.4-11.0) 06/18/23 05:45 Neut % (Auto) 63.6 % (42.0-75.0) 06/18/23 05:45 Lymph % (Auto) 23.2 % (21.0-51.0) 06/18/23 05:45 [place] % (Auto) 9.0 % (0.0-13.0) 06/18/23 05:45 Eos % (Auto) 2.9 % (0.9-2.9) 06/18/23 05:45 Baso % (Auto) 1.3 % (0.2-1.0) H 06/18/23 05:45 Neut # (Auto) 5.2 x10^3/uL (2.2-4.8) H 06/18/23 05:45 Lymph # (Auto) 1.9 X10^3/uL (1.3-2.9) 06/18/23 05:45 [place] # (Auto) 0.7 x10^3/uL (0.3-0.8) 06/18/23 05:45 Eos # (Auto) 0.2 x10^3/uL (0.0-0.2) 06/18/23 05:45 Baso # (Auto) 0.1 X10^3/uL (0.0-0.1) 06/18/23 05:45 Absolute Nucleated RBC 0.0 /100WBC 06/18/23 05:45 Plt Morphology Comment Normal (NORMAL) 06/17/23 05:15 RBC Morphology Abnormal (NORMAL) A 06/17/23 05:15 Anisocytosis Slight A 06/17/23 05:15 Sodium 137 mmol/L (136-145) 06/18/23 05:45 Corrected Sodium TNP 06/18/23 05:45 Potassium 4.0 mmol/L (3.5-5.1) 06/18/23 05:45 Chloride 104 mmol/L (98-107) 06/18/23 05:45 Carbon Dioxide 23.0 mmol/L (21-32) 06/18/23 05:45 BUN 15 mg/dL (7-18) 06/18/23 05:45 Creatinine 1.23 mg/dL (0.55-1.02) H 06/18/23 05:45 Est GFR (MDRD) Af Amer 54 (>60) L 06/18/23 05:45 Est GFR (MDRD) Non-Af 45 (>60) L 06/18/23 05:45 Glucose 74 mg/dL (65-99) 06/18/23 05:45 POC Glucose (mg/dL) 73 mg/dL (65-99) 06/18/23 05:22 Hemoglobin A1c 5.0 % 06/15/23 13:23 Calcium 7.8 mg/dL (8.5-10.1) L 06/18/23 05:45 Corrected Calcium 9.4 mg/dL (8.5-10.1) 06/18/23 05:45 Magnesium 2.0 mg/dL (2.0-2.9) 06/16/23 05:18 Total Bilirubin 2.00 mg/dL (0.2-1.0) H 06/18/23 05:45 AST 173 Units/L (15-37) H 06/18/23 05:45 ALT 27 Units/L (12-78) 06/18/23 05:45 Alkaline Phosphatase 342 Units/L (46-116) H 06/18/23 05:45 B-Natriuretic Peptide 542 pg/mL (0-79) H 06/15/23 13:23 Total Protein 5.4 g/dL (6.4-8.2) L 06/18/23 05:45 Albumin 2.0 g/dL (3.4-5.0) L 06/18/23 05:45 Globulin 3.4 g/dL (2.5-4.5) 06/18/23 05:45 Albumin/Globulin Ratio 0.6 Ratio (1.1-2.1) L 06/18/23 05:45 Specimen Type Clean catch urine 06/16/23 03:45 Urine Color Monica (YELLOW) 06/16/23 03:45 Urine Appearance Clear (CLEAR) 06/16/23 03:45 Urine pH 5.0 (5.0 - 8.0) 06/16/23 03:45 Ur Specific [place] 1.015 (1.000-1.030) 06/16/23 03:45 Urine Protein 2+ (NEGATIVE) 06/16/23 03:45 Urine Glucose (UA) Negative (NEGATIVE) 06/16/23 03:45 Urine Ketones Negative (NEGATIVE) 06/16/23 03:45 Urine Blood Negative (NEGATIVE) 06/16/23 03:45 Urine Nitrite Negative (NEGATIVE) 06/16/23 03:45 Urine Bilirubin Negative (NEGATIVE) 06/16/23 03:45 Urine Urobilinogen 1+ (NORMAL) 06/16/23 03:45 Ur Leukocyte Esterase Negative (NEGATIVE) 06/16/23 03:45 Urine RBC 0-2 /HPF (0-3) 06/16/23 03:45 Urine WBC None seen /HPF (0-5) 06/16/23 03:45 Ur Squamous Epith Cells Few /HPF (NEGATIVE) 06/16/23 03:45 Amorphous Sediment Trace /HPF (NEGATIVE) 06/16/23 03:45 Urine Bacteria Trace /HPF (NEGATIVE) 06/16/23 03:45 Hyaline Casts Moderate /LPF (NEGATIVE) 06/16/23 03:45 Ur Culture Indicated? 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 anorexia , Wt loss , liver dysfunction , dihydration , CKD , depression , ( family ) add Lovenox, IVF..
[2023-06-18] MEDS: FOLIC ACID TAB 1 MG PO SCH (09:06)
[2023-06-18] MEDS: LOVENOX INJ 40 MG SYR SC SCH (09:06)
[2023-06-18] MEDS: COZAAR PO SCH (09:06)
[2023-06-18] MEDS: SYNTHROID 50 mcg TAB PO SCH (09:07)
[2023-06-18] MEDS: HEMOCYTE-PLUS PO SCH (09:07)
[2023-06-18] MEDS: TOPROL XL PO SCH ×3 (09:07→22:53)
[2023-06-18] MEDS: NYSTATIN POWDER TOP SCH ×3 (09:07→22:52)
[2023-06-18] MEDS: NS 1,000 ML IV 1,000 ML with MVI INJ (ADULT) 10 ML IV SCH ×6 (09:08→22:48)
[2023-06-18] MEDS: XANAX PO PRN ×2 (09:17→19:35)
[2023-06-18] MEDS: GLUCOPHAGE PO SCH (09:56)
[2023-06-18] MEDS ORDERED: MAALOX or MYLANTA PO PRN (19:54)
[2023-06-18] MEDS: SNACK - Diabetic Appropriate PO SCH (21:14)
[2023-06-19 05:55] LABS: BASOPHILS # (AUTO) 0.1 X10^3/uL (0.0-0.1); EOSINOPHILS # (AUTO) 0.3 x10^3/uL (0.0-0.2); EOSINOPHILS % (AUTO) 3.8 % (0.9-2.9); HEMATOCRIT 28.8 % (36.0-47.0); HEMOGLOBIN 9.4 g/dL (12.0-16.0); LYMPHOCYTES # (AUTO) 1.6 X10^3/uL (1.3-2.9); LYMPHOCYTES % (AUTO) 23.1 % (21.0-51.0); MEAN CORPUSCULAR HEMOGLOBIN 30.1 pg (27.0-34.0); MEAN CORPUSCULAR HGB CONC 32.5 g/dL (33.0-35.0); MEAN CORPUSCULAR VOLUME 92.6 fL (80.0-100.0); MEAN PLATELET VOLUME 7.6 fL (7.4-11.0); MONOCYTES # (AUTO) 0.7 x10^3/uL (0.3-0.8); MONOCYTES % (AUTO) 10.6 % (0.0-13.0); NEUTROPHILS # (AUTO) 4.2 x10^3/uL (2.2-4.8); NEUTROPHILS % (AUTO) 60.5 % (42.0-75.0); PLATELET COUNT 210 X10^3/uL (150.0-450.0); RED BLOOD COUNT 3.11 X10^6/uL (3.5-5.4); RED CELL DISTRIBUTION WIDTH 18.4 % (11.6-16.5)
[2023-06-19 06:08] LABS: ALANINE AMINOTRANSFERASE 33 Units/L (12-78); ALBUMIN 1.8 g/dL (3.4-5.0); ALKALINE PHOSPHATASE 344 Units/L (46-116); ASPARTATE AMINO TRANSFERASE 178 Units/L (15-37); BLOOD UREA NITROGEN 12 mg/dL (7-18); CALCIUM 7.9 mg/dL (8.5-10.1); CARBON DIOXIDE 22.4 mmol/L (21-32); CHLORIDE 106 mmol/L (98-107); COR CA(FOR HYPOALB) 9.7 mg/dL (8.5-10.1); CREATININE 1.26 mg/dL (0.55-1.02); GLUCOSE 74 mg/dL (65-99); POTASSIUM 3.8 mmol/L (3.5-5.1); SODIUM 138 mmol/L (136-145); TOTAL PROTEIN 5.1 g/dL (6.4-8.2); eGFR NON BLACK RACES 44 (>60)
[2023-06-19] MEDS ORDERED: CONSULT PHARMACY - POTASSIUM & MAGNESIUM XX SCH (07:00)
[2023-06-19] MEDS ORDERED: POTASSIUM CHLORIDE LIQ PO SCH (08:00)
[2023-06-19] MEDS: LOVENOX INJ 40 MG SYR SC SCH (09:17)
[2023-06-19] MEDS: COZAAR PO SCH (09:18)
[2023-06-19] MEDS: ALBUMIN HUMAN 25%- 100 ML 100 ML IV SCH (09:18)
[2023-06-19] MEDS: SYNTHROID 50 mcg TAB PO SCH (09:18)
[2023-06-19] MEDS: TOPROL XL PO SCH ×2 (09:18→20:30)
[2023-06-19] MEDS: FOLIC ACID TAB 1 MG PO SCH (09:18)
[2023-06-19] MEDS: HEMOCYTE-PLUS PO SCH (09:18)
[2023-06-19] MEDS: XANAX PO PRN ×2 (09:18→20:30)
[2023-06-19] MEDS: NYSTATIN POWDER TOP SCH ×2 (09:19→20:36)
--- NOTE | 2023-06-19 09:22 | DR.PROGNOT ---
HOSPITAL PROGRESS NOTE Progress Note for Day of: Progress Note Date: 06/19/23 Chief Complaint Chief Complaint: no changes .c/o being weak and tired , poor appetite . having epigastric and RUQ pain and mild nausea . colonoscopy showed two lesions in the cecum and ascending colon suspicious for malignancy . Bilir 1.8 Alk phos 342 . Albumin 1.8 afebrile Past Medical Family Social History Allergies: Allergies codeine Allergy (Verified 08/30/22 18:00) oxycodone Allergy (Verified 08/30/22 18:38) Vital Signs Vital Signs: Vital Signs Temperature 97.8 F Temperature 98.0 F Pulse Rate [Left Brachial] 81 Pulse Rate [Left Brachial] 75 Respiratory Rate 18 Respiratory Rate 20 Blood Pressure [Left Arm] 118/60 Blood Pressure [Left Arm] 116/66 O2 Sat by Pulse Oximetry 99 O2 Sat by Pulse Oximetry 95 Physical Exam Oriented: Normal Eyes: Normal Ear: Normal Nose: Normal Respiratory: Normal Cardiovascular: Normal GI:Auscultation: Normal GI: Tenderness: Diffuse (soft abdomen with diffuse tenderness ..BS+) Speech Pattern: Clear and Appropriate Laboratory and Diagnostics 06/19/23 05:18 06/19/23 05:18 Labs: 06/16/23 03:45 Urine,Clean Catch Urine Culture - Final Laboratory WBC 7.0 X10^3/uL (3.6-10.0) 06/19/23 05:18 RBC 3.11 X10^6/uL (3.5-5.4) L 06/19/23 05:18 Hgb 9.4 g/dL (12.0-16.0) L 06/19/23 05:18 Hct 28.8 % (36.0-47.0) L 06/19/23 05:18 MCV 92.6 fL (80.0-100.0) 06/19/23 05:18 MCH 30.1 pg (27.0-34.0) 06/19/23 05:18 MCHC 32.5 g/dL (33.0-35.0) L 06/19/23 05:18 RDW 18.4 % (11.6-16.5) H 06/19/23 05:18 Plt Count 210 X10^3/uL (150.0-450.0) 06/19/23 05:18 Plt Count Comment Adequate (ADEQUATE) 06/17/23 05:15 MPV 7.6 fL (7.4-11.0) 06/19/23 05:18 Neut % (Auto) 60.5 % (42.0-75.0) 06/19/23 05:18 Lymph % (Auto) 23.1 % (21.0-51.0) 06/19/23 05:18 [place] % (Auto) 10.6 % (0.0-13.0) 06/19/23 05:18 Eos % (Auto) 3.8 % (0.9-2.9) H 06/19/23 05:18 Baso % (Auto) 2.0 % (0.2-1.0) H 06/19/23 05:18 Neut # (Auto) 4.2 x10^3/uL (2.2-4.8) 06/19/23 05:18 Lymph # (Auto) 1.6 X10^3/uL (1.3-2.9) 06/19/23 05:18 [place] # (Auto) 0.7 x10^3/uL (0.3-0.8) 06/19/23 05:18 Eos # (Auto) 0.3 x10^3/uL (0.0-0.2) H 06/19/23 05:18 Baso # (Auto) 0.1 X10^3/uL (0.0-0.1) 06/19/23 05:18 Absolute Nucleated RBC 0.4 /100WBC 06/19/23 05:18 Plt Morphology Comment Normal (NORMAL) 06/17/23 05:15 RBC Morphology Abnormal (NORMAL) A 06/17/23 05:15 Anisocytosis Slight A 06/17/23 05:15 Sodium 138 mmol/L (136-145) 06/19/23 05:18 Corrected Sodium TNP 06/19/23 05:18 Potassium 3.8 mmol/L (3.5-5.1) 06/19/23 05:18 Chloride 106 mmol/L (98-107) 06/19/23 05:18 Carbon Dioxide 22.4 mmol/L (21-32) 06/19/23 05:18 BUN 12 mg/dL (7-18) 06/19/23 05:18 Creatinine 1.26 mg/dL (0.55-1.02) H 06/19/23 05:18 Est GFR (MDRD) Af Amer 53 (>60) L 06/19/23 05:18 Est GFR (MDRD) Non-Af 44 (>60) L 06/19/23 05:18 Glucose 74 mg/dL (65-99) 06/19/23 05:18 POC Glucose (mg/dL) 72 mg/dL (65-99) 06/19/23 05:31 Hemoglobin A1c 5.0 % 06/15/23 13:23 Calcium 7.9 mg/dL (8.5-10.1) L 06/19/23 05:18 Corrected Calcium 9.7 mg/dL (8.5-10.1) 06/19/23 05:18 Magnesium 2.0 mg/dL (2.0-2.9) 06/19/23 05:18 Total Bilirubin 1.70 mg/dL (0.2-1.0) H 06/19/23 05:18 AST 178 Units/L (15-37) H 06/19/23 05:18 ALT 33 Units/L (12-78) 06/19/23 05:18 Alkaline Phosphatase 344 Units/L (46-116) H 06/19/23 05:18 B-Natriuretic Peptide 542 pg/mL (0-79) H 06/15/23 13:23 Total Protein 5.1 g/dL (6.4-8.2) L 06/19/23 05:18 Albumin 1.8 g/dL (3.4-5.0) L 06/19/23 05:18 Globulin 3.3 g/dL (2.5-4.5) 06/19/23 05:18 Albumin/Globulin Ratio 0.5 Ratio (1.1-2.1) L 06/19/23 05:18 Carcinoembryonic Ag 507.0 ng/mL 06/15/23 13:23 Specimen Type Clean catch urine 06/16/23 03:45 Urine Color Monica (YELLOW) 06/16/23 03:45 Urine Appearance Clear (CLEAR) 06/16/23 03:45 Urine pH 5.0 (5.0 - 8.0) 06/16/23 03:45 Ur Specific [place] 1.015 (1.000-1.030) 06/16/23 03:45 Urine Protein 2+ (NEGATIVE) 06/16/23 03:45 Urine Glucose (UA) Negative (NEGATIVE) 06/16/23 03:45 Urine Ketones Negative (NEGATIVE) 06/16/23 03:45 Urine Blood Negative (NEGATIVE) 06/16/23 03:45 Urine Nitrite Negative (NEGATIVE) 06/16/23 03:45 Urine Bilirubin Negative (NEGATIVE) 06/16/23 03:45 Urine Urobilinogen 1+ (NORMAL) 06/16/23 03:45 Ur Leukocyte Esterase Negative (NEGATIVE) 06/16/23 03:45 Urine RBC 0-2 /HPF (0-3) 06/16/23 03:45 Urine WBC None seen /HPF (0-5) 06/16/23 03:45 Ur Squamous Epith Cells Few /HPF (NEGATIVE) 06/16/23 03:45 Amorphous Sediment Trace /HPF (NEGATIVE) 06/16/23 03:45 Urine Bacteria Trace /HPF (NEGATIVE) 06/16/23 03:45 Hyaline Casts Moderate /LPF (NEGATIVE) 06/16/23 03:45 Ur Culture Indicated? 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 anorexia , Wt loss , liver dysfunction , dihydration , CKD , depression , ( family ) add Lovenox, IVF.. could be D/C in am and will follow as OP in the office .. needs future colectomy and liver Bx .
[2023-06-19] MEDS: NS 1,000 ML IV 1,000 ML with MVI INJ (ADULT) 10 ML IV SCH ×4 (09:44→13:23)
[2023-06-19] MEDS: GLUCOPHAGE PO SCH (09:44)
[2023-06-19] MEDS: WELLBUTRIN XL 150 MG (DAILY) PO SCH (10:37)
[2023-06-19] MEDS: SNACK - Diabetic Appropriate PO SCH (20:51)
[2023-06-19] MEDS ORDERED: D50W ABBOJECT SYR IV ONE (21:45)
[2023-06-20] MEDS: NS 1,000 ML IV 1,000 ML with MVI INJ (ADULT) 10 ML IV SCH ×4 (00:35→00:43)
[2023-06-20 05:23] LABS: BASOPHILS # (AUTO) 0.1 X10^3/uL (0.0-0.1); BASOPHILS % (AUTO) 1.4 % (0.2-1.0); EOSINOPHILS # (AUTO) 0.2 x10^3/uL (0.0-0.2); EOSINOPHILS % (AUTO) 3.5 % (0.9-2.9); HEMATOCRIT 27.3 % (36.0-47.0); LYMPHOCYTES % (AUTO) 29.3 % (21.0-51.0); MEAN CORPUSCULAR HEMOGLOBIN 30.6 pg (27.0-34.0); MEAN CORPUSCULAR HGB CONC 33.1 g/dL (33.0-35.0); MEAN CORPUSCULAR VOLUME 92.6 fL (80.0-100.0); MEAN PLATELET VOLUME 7.6 fL (7.4-11.0); MONOCYTES # (AUTO) 0.6 x10^3/uL (0.3-0.8); MONOCYTES % (AUTO) 8.5 % (0.0-13.0); NEUTROPHILS % (AUTO) 57.3 % (42.0-75.0); PLATELET COUNT 212 X10^3/uL (150.0-450.0); RED BLOOD COUNT 2.95 X10^6/uL (3.5-5.4); RED CELL DISTRIBUTION WIDTH 18.3 % (11.6-16.5)
--- NOTE | 2023-06-20 05:24 | RAD ---
HISTORYsob with wheezing HX OF TIA, LITHO, GBSTUDYCHEST, 1 [id number] trachea is midline. The cardiac silhouette is unremarkable. The lungs are clear without focal infiltrate or effusion. The bony thorax is unremarkable.IMPRESSIONNo acute cardiopulmonary findings .Electronically signed by: Carlos Alberto Huang (Jun 20, 2023 05:23:30)
[2023-06-20 05:38] LABS: ALANINE AMINOTRANSFERASE 23 Units/L (12-78); ALKALINE PHOSPHATASE 324 Units/L (46-116); ASPARTATE AMINO TRANSFERASE 173 Units/L (15-37); BLOOD UREA NITROGEN 14 mg/dL (7-18); CALCIUM 7.8 mg/dL (8.5-10.1); CARBON DIOXIDE 22.7 mmol/L (21-32); CHLORIDE 107 mmol/L (98-107); COR CA(FOR HYPOALB) 9.4 mg/dL (8.5-10.1); CREATININE 1.32 mg/dL (0.55-1.02); GLUCOSE 76 mg/dL (65-99); POTASSIUM 3.9 mmol/L (3.5-5.1); SODIUM 139 mmol/L (136-145); TOTAL PROTEIN 5.1 g/dL (6.4-8.2); eGFR NON BLACK RACES 41 (>60)
[2023-06-20 05:49] LABS: ANISOCYTOSIS SLIGHT; OVALOCYTES PRESENT; PLATELET MORPHOLOGY COMMENT NORMAL (NORMAL); TARGET CELLS PRESENT
[2023-06-20] MEDS: NS 1,000 ML IV 1,000 ML IV SCH ×2 (07:10→21:59)
[2023-06-20] MEDS: LOVENOX INJ 40 MG SYR SC SCH (09:38)
[2023-06-20] MEDS: FOLIC ACID TAB 1 MG PO SCH (09:38)
[2023-06-20] MEDS: HEMOCYTE-PLUS PO SCH (09:38)
[2023-06-20] MEDS: WELLBUTRIN XL 150 MG (DAILY) PO SCH (09:38)
[2023-06-20] MEDS: COZAAR PO SCH (09:39)
[2023-06-20] MEDS: GLUCOPHAGE PO SCH (09:40)
[2023-06-20] MEDS: TOPROL XL PO SCH (09:41)
[2023-06-20] MEDS: NYSTATIN POWDER TOP SCH ×2 (09:42→20:30)
[2023-06-20] MEDS ORDERED: PHARMACY CONSULT - TPN XX SCH (10:00)
[2023-06-20] MEDS: MEGACE PO SCH ×2 (10:45→20:30)
[2023-06-20] MEDS: TYLENOL 325 MG TAB PO PRN (10:45)
[2023-06-20] MEDS: ALBUMIN HUMAN 25%- 100 ML 100 ML IV SCH (10:46)
[2023-06-20] MEDS: LASIX IVP SCH ×2 (12:27→18:15)
[2023-06-20] MEDS: SYNTHROID 50 mcg TAB PO SCH (12:27)
--- NOTE | 2023-06-20 13:00 | PCM.PROG ---
Progress Note - Progress Note for Day of Date of Exam: 06/17/23 - Subjective Subjective: WAS ADMITTED ON 06/15 INPATIENT STATUS FOR TREATMENT OF SEVERE ABDOMINAL PAIN, DEHYDRATION, BILATERAL LOWER EXTREMITY EDEMA, GENERALIZED WEAKNESS, DECREASED APPETITE, AND WEIGHT LOSS. SHE REPORTED THAT SYMPTOMS HAVE BEEN PRESENT FOR ABOUT THE PAST MONTH AND A HALF. TODAY, SHE IS ALERT AND ORIENTED, LYING IN BED ON MORNING ROUNDS. SHE CONTINUES WITH COMPLAINTS OF DIFFUSE ABDOMINAL PAIN, WEAKNESS, AND DECREASED APPETITE. PATIENT IS VERY TEARFUL AND APPEARS TO HAVE SOME ANXIETY THIS MORNING. ON EXAMINATION, HEART IS REGULAR IN RATE AND RHYTHM. BILATERAL LUNGS ARE NOTED WITH DIMINISHED LUNG SOUNDS THROUGHOUT. ABDOMEN IS ROUND, SOFT, AND NOTED WITH DIFFUSE TENDERNESS. GOOD RANGE OF MOTION NOTED TO UPPER AND LOWER EXTREMITIES. THERE CONTINUES TO BE 1+ PITTING EDEMA OF LOWER EXTREMITIES. HER VITALS THIS MORNING ARE: 97.5-82-20-99%-133/62. LABS WERE OBTAINED. WBC 8.2, RBC 3.20, HGB 9.6, HCT 29.3, PLT COUNT 201, SODIUM 136, POTASSIUM 3.8, CHLORIDE 102, BUN 19, CREATININE 1.34, GLUCOSE 92, CALCIUM 7.9, TOTAL BILI 2.30, AST 167, ALT 27, ALK PHOS 360, TOTAL PROTEIN 5.4, ALBUMIN 2.0. URINE CULTURE IS PENDING. AN ABDOMEN/PELVIS CT WITHOUT CONTRAST WAS OBTAINED ON ADMISSION AND REVEALED: 1. 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 Additionally, there are heterogeneous low attenuation areas in the liver which are concerning for metastatic foci. Recommend dedicated liver imaging for further characterization. 2. Calcified and noncalcified nodules in the imaged portion of the lung parenchyma. Findings could represent the sequela of granulomatous disease and metastatic disease; given the findings in impression 1. 3. Small sliding-type hiatal hernia. A CHEST CT WITHOUT CONTRAST WAS OBTAINED YESTERDAY AND REVEALED: Multiple pulmonary nodules. Given the patient's ill-defined low- attenuation foci in the liver, concerning for metastatic disease, and the prior day CT with concern for colonic cancer, the pulmonary nodules are concerning for metastatic disease. BILATERAL LOWER EXTREMITY VENOUS DOPPLER WAS OBTAINED AND WAS NEGATIVE FOR DVT. 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 WE ARE IN AGREEMENT WITH PLANS. SHE IS CURRENTLY RECEIVING: NORMAL SALINE WITH MULTIVITAMINS AT 80 ML/HR, OTBS ACHS, HUMULIN R SLIDING SCALE, AND NYSTATIN POWDER BID. HER HOME MEDICATIONS OF FOLIC ACID, SYNTHROID, COZAAR, MECLIZINE PRN, METFORMIN, TOPROL XL, HEMOCYTE PLUS WERE RESUMED. WE WILL CONTINUE WITH CURRENT PLAN OF CARE TODAY AND ADD ALPRAZOLAM 0.5MG BID PRN. OTHERWISE, WE WILL FOLLOW UP WITH AM LABS AND CONTINUE TO MONITOR. TIME SPENT ON CLINICAL ASSESSMENT, REVIEWING LABS AND IMAGING, DECISION MAKING, AND DOCUMENTATION GREATER THAN 75 MINUTES. - Past Medical Family Social History Past Med/Fam/Surg Hx: No changes since H&P Allergies: Allergies codeine Allergy (Verified 08/30/22 18:00) oxycodone Allergy (Verified 08/30/22 18:38) - Review of Systems ROS: No change since H&P - Vital Signs and I&O's Vital Signs: Vital Signs Temperature 97.6 F Pulse Rate [Left Brachial] 74 Respiratory Rate 18 Respiratory Rate 20 Blood Pressure [Left Arm] 104/52 O2 Sat by Pulse Oximetry 100 Intake and Output: Intake & Output 06/18/23 06/19/23 06/20/23 06/21/23 11:59 11:59 11:59 11:59 Intake Total 1934 1090 / 1090 Balance 1934 1090 / 1090 - Physical Exam Oriented: Normal Eyes: Normal Ear: Normal Nose: Normal Respiratory: Normal Cardiovascular: Edema (1+ PITTING EDEMA OF BILATERAL LOWER EXTREMITIES ) : Normal Auscultation: Bowel Sounds: Normal Palpation: Normal Tenderness: Diffuse (soft abdomen with diffuse tenderness ..BS+) Skin: Normal Musculoskeletal: Normal Psychiatric: Normal Mood Description: Calm Affect: Normal Speech Pattern: Clear, Appropriate - Laboratory and Diagnostics Result Diagrams: 06/20/23 04:38 06/20/23 04:38 Labs: 06/16/23 03:45 Urine,Clean Catch Urine Culture - Final Laboratory WBC 7.0 X10^3/uL (3.6-10.0) 06/20/23 04:38 RBC 2.95 X10^6/uL (3.5-5.4) L 06/20/23 04:38 Hgb 9.0 g/dL (12.0-16.0) L 06/20/23 04:38 Hct 27.3 % (36.0-47.0) L 06/20/23 04:38 MCV 92.6 fL (80.0-100.0) 06/20/23 04:38 MCH 30.6 pg (27.0-34.0) 06/20/23 04:38 MCHC 33.1 g/dL (33.0-35.0) 06/20/23 04:38 RDW 18.3 % (11.6-16.5) H 06/20/23 04:38 Plt Count 212 X10^3/uL (150.0-450.0) 06/20/23 04:38 Plt Count Comment Adequate (ADEQUATE) 06/20/23 04:38 MPV 7.6 fL (7.4-11.0) 06/20/23 04:38 Neut % (Auto) 57.3 % (42.0-75.0) 06/20/23 04:38 Lymph % (Auto) 29.3 % (21.0-51.0) 06/20/23 04:38 [place] % (Auto) 8.5 % (0.0-13.0) 06/20/23 04:38 Eos % (Auto) 3.5 % (0.9-2.9) H 06/20/23 04:38 Baso % (Auto) 1.4 % (0.2-1.0) H 06/20/23 04:38 Neut # (Auto) 4.0 x10^3/uL (2.2-4.8) 06/20/23 04:38 Lymph # (Auto) 2.0 X10^3/uL (1.3-2.9) 06/20/23 04:38 [place] # (Auto) 0.6 x10^3/uL (0.3-0.8) 06/20/23 04:38 Eos # (Auto) 0.2 x10^3/uL (0.0-0.2) 06/20/23 04:38 Baso # (Auto) 0.1 X10^3/uL (0.0-0.1) 06/20/23 04:38 Absolute Nucleated RBC 0.1 /100WBC 06/20/23 04:38 Plt Morphology Comment Normal (NORMAL) 06/20/23 04:38 RBC Morphology Abnormal (NORMAL) A 06/20/23 04:38 Anisocytosis Slight A 06/20/23 04:38 Target Cells Present 06/20/23 04:38 Ovalocytes Present 06/20/23 04:38 Sodium 139 mmol/L (136-145) 06/20/23 04:38 Corrected Sodium TNP 06/20/23 04:38 Potassium 3.9 mmol/L (3.5-5.1) 06/20/23 04:38 Chloride 107 mmol/L (98-107) 06/20/23 04:38 Carbon Dioxide 22.7 mmol/L (21-32) 06/20/23 04:38 BUN 14 mg/dL (7-18) 06/20/23 04:38 Creatinine 1.32 mg/dL (0.55-1.02) H 06/20/23 04:38 Est GFR (MDRD) Af Amer 50 (>60) L 06/20/23 04:38 Est GFR (MDRD) Non-Af 41 (>60) L 06/20/23 04:38 Glucose 76 mg/dL (65-99) 06/20/23 04:38 POC Glucose (mg/dL) 80 mg/dL (65-99) 06/20/23 11:28 Hemoglobin A1c 5.0 % 06/15/23 13:23 Calcium 7.8 mg/dL (8.5-10.1) L 06/20/23 04:38 Corrected Calcium 9.4 mg/dL (8.5-10.1) 06/20/23 04:38 Magnesium 2.0 mg/dL (2.0-2.9) 06/19/23 05:18 Total Bilirubin 1.80 mg/dL (0.2-1.0) H 06/20/23 04:38 AST 173 Units/L (15-37) H 06/20/23 04:38 ALT 23 Units/L (12-78) 06/20/23 04:38 Alkaline Phosphatase 324 Units/L (46-116) H 06/20/23 04:38 B-Natriuretic Peptide 542 pg/mL (0-79) H 06/15/23 13:23 Total Protein 5.1 g/dL (6.4-8.2) L 06/20/23 04:38 Albumin 2.0 g/dL (3.4-5.0) L 06/20/23 04:38 Globulin 3.1 g/dL (2.5-4.5) 06/20/23 04:38 Albumin/Globulin Ratio 0.6 Ratio (1.1-2.1) L 06/20/23 04:38 Carcinoembryonic Ag 507.0 ng/mL 06/15/23 13:23 Specimen Type Clean catch urine 06/16/23 03:45 Urine Color Monica (YELLOW) 06/16/23 03:45 Urine Appearance Clear (CLEAR) 06/16/23 03:45 Urine pH 5.0 (5.0 - 8.0) 06/16/23 03:45 Ur Specific Jones 1.015 (1.000-1.030) 06/16/23 03:45 Urine Protein 2+ (NEGATIVE) 06/16/23 03:45 Urine Glucose (UA) Negative (NEGATIVE) 06/16/23 03:45 Urine Ketones Negative (NEGATIVE) 06/16/23 03:45 Urine Blood Negative (NEGATIVE) 06/16/23 03:45 Urine Nitrite Negative (NEGATIVE) 06/16/23 03:45 Urine Bilirubin Negative (NEGATIVE) 06/16/23 03:45 Urine Urobilinogen 1+ (NORMAL) 06/16/23 03:45 Ur Leukocyte Esterase Negative (NEGATIVE) 06/16/23 03:45 Urine RBC 0-2 /HPF (0-3) 06/16/23 03:45 Urine WBC None seen /HPF (0-5) 06/16/23 03:45 Ur Squamous Epith Cells Few /HPF (NEGATIVE) 06/16/23 03:45 Amorphous Sediment Trace /HPF (NEGATIVE) 06/16/23 03:45 Urine Bacteria Trace /HPF (NEGATIVE) 06/16/23 03:45 Hyaline Casts Moderate /LPF (NEGATIVE) 06/16/23 03:45 Ur Culture Indicated? Yes/culture set up 06/16/23 03:45 - Plan (1) Abdominal pain Status: Acute Qualifiers: Abdominal location: generalized Qualified Code(s): R10.84 - Generalized abdominal pain Plan: EGD TODAY, NORMAL SALINE WITH MULTIVITAMINS AT 80 ML/HR, OTBS ACHS, HUMULIN R SLIDING SCALE, AND NYSTATIN POWDER BID. HER HOME MEDICATIONS OF FOLIC ACID, SYNTHROID, COZAAR, MECLIZINE PRN, METFORMIN, TOPROL XL, HEMOCYTE PLUS WERE RESUMED. (2) Dehydration Status: Acute (3) Generalized weakness Status: Acute Plan: PT/OT (4) Weight loss Status: Acute (5) Lower extremity edema Status: Acute (6) Generalized anxiety disorder Status: Acute Plan: ALPRAZOLAM 0.5MG BID (7) DM II (diabetes mellitus, type II), controlled Status: Chronic Qualifiers: Diabetes mellitus care home insulin use: with care home use Diabetes mellitus complication status: with hyperglycemia Qualified Code(s): E11.65 - Type 2 diabetes mellitus with hyperglycemia; Z79.4 - intermediate (current) use of insulin Plan: OTBS ACHS, HUMULIN R SLIDING SCALE, CONTINUE HOME MEDS (8) HTN (hypertension) Status: Chronic Qualifiers: Hypertension type: primary hypertension Plan: CONTINUE HOME MEDS
[2023-06-20] MEDS: CLINIMIX 4.25%-5% 1,000 ML with MVI INJ (ADULT) 10 ML IV SCH ×4 (13:11→20:30)
[2023-06-20] MEDS ORDERED: DRUG FILTER EXTENSION SET ONE (13:24)
[2023-06-20] MEDS: XANAX PO PRN (15:30)
[2023-06-20] MEDS: SNACK - Diabetic Appropriate PO SCH (20:30)
[2023-06-21] MEDS: NS 1,000 ML IV 1,000 ML IV SCH (03:21)
[2023-06-21 05:15] LABS: BASOPHILS # (AUTO) 0.1 X10^3/uL (0.0-0.1); BASOPHILS % (AUTO) 1.9 % (0.2-1.0); EOSINOPHILS # (AUTO) 0.3 x10^3/uL (0.0-0.2); EOSINOPHILS % (AUTO) 3.9 % (0.9-2.9); HEMATOCRIT 25.6 % (36.0-47.0); HEMOGLOBIN 8.4 g/dL (12.0-16.0); LYMPHOCYTES % (AUTO) 28.8 % (21.0-51.0); MEAN CORPUSCULAR HEMOGLOBIN 30.6 pg (27.0-34.0); MEAN CORPUSCULAR VOLUME 92.6 fL (80.0-100.0); MEAN PLATELET VOLUME 7.5 fL (7.4-11.0); MONOCYTES # (AUTO) 0.6 x10^3/uL (0.3-0.8); MONOCYTES % (AUTO) 9.2 % (0.0-13.0); NEUTROPHILS # (AUTO) 3.8 x10^3/uL (2.2-4.8); NEUTROPHILS % (AUTO) 56.2 % (42.0-75.0); PLATELET COUNT 193 X10^3/uL (150.0-450.0); RED BLOOD COUNT 2.76 X10^6/uL (3.5-5.4); RED CELL DISTRIBUTION WIDTH 18.7 % (11.6-16.5); WHITE BLOOD COUNT 6.8 X10^3/uL (3.6-10.0)
[2023-06-21 05:21] LABS: ALANINE AMINOTRANSFERASE 21 Units/L (12-78); ALBUMIN 2.1 g/dL (3.4-5.0); ALKALINE PHOSPHATASE 294 Units/L (46-116); ASPARTATE AMINO TRANSFERASE 144 Units/L (15-37); BLOOD UREA NITROGEN 16 mg/dL (7-18); CALCIUM 7.9 mg/dL (8.5-10.1); CARBON DIOXIDE 26.4 mmol/L (21-32); CHLORIDE 107 mmol/L (98-107); COR CA(FOR HYPOALB) 9.4 mg/dL (8.5-10.1); GLUCOSE 108 mg/dL (65-99); POTASSIUM 3.2 mmol/L (3.5-5.1); SODIUM 139 mmol/L (136-145); eGFR NON BLACK RACES 42 (>60)
[2023-06-21 05:38] LABS: PLATELET MORPHOLOGY COMMENT NORMAL (NORMAL)
[2023-06-21 05:39] LABS: ANISOCYTOSIS SLIGHT; TARGET CELLS PRESENT
[2023-06-21] MEDS ORDERED: CONSULT PHARMACY - POTASSIUM & MAGNESIUM XX SCH ×2 (07:00→08:00)
[2023-06-21 08:46] VITALS: BMI 31.3
[2023-06-21] MEDS: LOVENOX INJ 40 MG SYR SC SCH (08:58)
[2023-06-21] MEDS: LASIX IVP SCH (08:58)
[2023-06-21] MEDS: WELLBUTRIN XL 150 MG (DAILY) PO SCH (08:59)
[2023-06-21] MEDS: FOLIC ACID TAB 1 MG PO SCH (08:59)
[2023-06-21] MEDS ORDERED: K-RIDER 10 MEQ/NS 100 ML 20 MEQ/200 ML BAG IV SCH (09:00)
[2023-06-21] MEDS: HEMOCYTE-PLUS PO SCH (09:00)
[2023-06-21] MEDS: SYNTHROID 50 mcg TAB PO SCH (09:00)
[2023-06-21] MEDS: MEGACE PO SCH ×2 (09:00→22:25)
[2023-06-21] MEDS: COZAAR PO SCH (09:00)
[2023-06-21] MEDS ORDERED: MAGNESIUM SULFATE 1 GRAM/100 mL PREMIX 1 G/100 ML BAG IV SCH (09:00)
[2023-06-21] MEDS: ALBUMIN HUMAN 25%- 100 ML 100 ML IV SCH (09:01)
[2023-06-21] MEDS: NYSTATIN POWDER TOP SCH ×2 (09:02→20:27)
[2023-06-21] MEDS: CLINIMIX 4.25%-5% 1,000 ML with MVI INJ (ADULT) 10 ML IV SCH ×2 (09:02)
[2023-06-21] MEDS: TOPROL XL PO SCH (09:02)
--- NOTE | 2023-06-21 11:34 | PCM.PROG ---
Progress Note - Subjective Subjective: WAS ADMITTED ON 06/15 INPATIENT STATUS FOR TREATMENT OF SEVERE ABDOMINAL PAIN, DEHYDRATION, BILATERAL LOWER EXTREMITY EDEMA, GENERALIZED WEAKNESS, DECREASED APPETITE, AND WEIGHT LOSS. SHE REPORTED THAT SYMPTOMS HAVE BEEN PRESENT FOR ABOUT THE PAST MONTH AND A HALF. TODAY, SHE IS ALERT AND ORIENTED, LYING IN BED ON MORNING ROUNDS. SHE CONTINUES WITH COMPLAINTS OF DIFFUSE ABDOMINAL PAIN, WEAKNESS, AND DECREASED APPETITE. PATIENT IS VERY TEARFUL AND APPEARS TO HAVE SOME ANXIETY THIS MORNING. ON EXAMINATION, HEART IS REGULAR IN RATE AND RHYTHM. BILATERAL LUNGS ARE NOTED WITH DIMINISHED LUNG SOUNDS THROUGHOUT. ABDOMEN IS ROUND, SOFT, AND NOTED WITH DIFFUSE TENDERN ESS. GOOD RANGE OF MOTION NOTED TO UPPER AND LOWER EXTREMITIES. THERE CONTINUES TO BE 1+ PITTING EDEMA OF LOWER EXTREMITIES. HER VITALS THIS MORNING ARE: 97.5-82-20-99%-133/62. LABS WERE OBTAINED. WBC 8.2, RBC 3.20, HGB 9.6, HCT 29.3, PLT COUNT 201, SODIUM 136, POTASSIUM 3.8, CHLORIDE 102, BUN 19, CREATININE 1.34, GLUCOSE 92, CALCIUM 7.9, TOTAL BILI 2.30, AST 167, ALT 27, ALK PHOS 360, TOTAL PROTEIN 5.4, ALBUMIN 2.0. URINE CULTURE IS PENDING. AN ABDOMEN/PELVIS CT WITHOUT CONTRAST WAS OBTAINED ON ADMISSION AND REVEALED: 1. 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 Additionally, there are heterogeneous low attenuation areas in the liver which are concerning for metastatic foci. Recommend dedicated liver imaging for further characterization. 2. Calcified and noncalcified nodules in the imaged portion of the lung parenchyma. Findings could represent the sequela of granulomatous disease and metastatic disease; given the findings in impression 1. 3. Small sliding-type hiatal hernia. A CHEST CT WITHOUT CONTRAST WAS OBTAINED YESTERDAY AND REVEALED: Multiple pulmonary nodules. Given the patient's ill-defined low-attenuation foci in the liver, concerning for metastatic disease, and the prior day CT with concern for colonic cancer, the pulmonary nodules are concerning for metastatic disease. BILATERAL LOWER EXTREMITY VENOUS DOPPLER WAS OBTAINED AND WAS NEGATIVE FOR DVT. 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 WE ARE IN AGREEMENT WITH PLANS. SHE IS CURRENTLY RECEIVING: NORMAL SALINE WITH MULTIVITAMINS AT 80 ML/HR, OTBS ACHS, HUMULIN R SLIDING SCALE, AND NYSTATIN POWDER BID. HER HOME MEDICATIONS OF FOLIC ACID, SYNTHROID, COZAAR, MECLIZINE PRN, METFORMIN, TOPROL XL, HEMOCYTE PLUS WERE RESUMED. WE WILL CONTINUE WITH CURRENT PLAN OF CARE TODAY AND ADD ALPRAZOLAM 0.5MG BID PRN. OTHERWISE, WE WILL FOLLOW UP WITH AM LABS AND CONTINUE TO MONITOR. TIME SPENT ON CLINICAL ASSESSMENT, REVIEWING LABS AND IMAGING, DECISION MAKING, AND DOCUMENTATION GREATER THAN 75 MINUTES. - Past Medical Family Social History Past Med/Fam/Surg Hx: No changes since H&P Allergies: Allergies codeine Allergy (Verified 08/30/22 18:00) oxycodone Allergy (Verified 08/30/22 18:38) - Review of Systems ROS: No change since H&P - Vital Signs and I&O's Vital Signs: Vital Signs Temperature 97.7 F Temperature 97.6 F Pulse Rate [Left Brachial] 80 Pulse Rate [Left Brachial] 76 Respiratory Rate 18 Respiratory Rate 16 Blood Pressure [Left Arm] 122/57 Blood Pressure [Left Arm] 124/76 O2 Sat by Pulse Oximetry 100 O2 Sat by Pulse Oximetry 100 Intake and Output: Intake & Output 06/18/23 06/19/23 06/20/23 06/21/23 23:59 23:59 23:59 23:59 Intake Total 1728 / 1728 1967 1538 / 1538 472 / 472 Output Total 220 / 220 500 / 500 Balance 1728 / 1728 1967 1318 / 1318 -28 / -28 - Physical Exam Oriented: Normal Eyes: Normal Ear: Normal Nose: Normal Respiratory: Normal Cardiovascular: Edema (1+ PITTING EDEMA OF BILATERAL LOWER EXTREMITIES ) : Normal Auscultation: Bowel Sounds: Normal Tenderness: Diffuse (soft abdomen with diffuse tenderness ..BS+) Skin: Normal Musculoskeletal: Normal Psychiatric: Normal Mood Description: Calm Affect: Normal Speech Pattern: Clear, Appropriate - Laboratory and Diagnostics Result Diagrams: 06/21/23 04:30 06/21/23 04:30 Labs: 06/16/23 03:45 Urine,Clean Catch Urine Culture - Final Laboratory WBC 6.8 X10^3/uL (3.6-10.0) 06/21/23 04:30 RBC 2.76 X10^6/uL (3.5-5.4) L 06/21/23 04:30 Hgb 8.4 g/dL (12.0-16.0) L 06/21/23 04:30 Hct 25.6 % (36.0-47.0) L 06/21/23 04:30 MCV 92.6 fL (80.0-100.0) 06/21/23 04:30 MCH 30.6 pg (27.0-34.0) 06/21/23 04:30 MCHC 33.0 g/dL (33.0-35.0) 06/21/23 04:30 RDW 18.7 % (11.6-16.5) H 06/21/23 04:30 Plt Count 193 X10^3/uL (150.0-450.0) 06/21/23 04:30 Plt Count Comment Adequate (ADEQUATE) 06/21/23 04:30 MPV 7.5 fL (7.4-11.0) 06/21/23 04:30 Neut % (Auto) 56.2 % (42.0-75.0) 06/21/23 04:30 Lymph % (Auto) 28.8 % (21.0-51.0) 06/21/23 04:30 [place] % (Auto) 9.2 % (0.0-13.0) 06/21/23 04:30 Eos % (Auto) 3.9 % (0.9-2.9) H 06/21/23 04:30 Baso % (Auto) 1.9 % (0.2-1.0) H 06/21/23 04:30 Neut # (Auto) 3.8 x10^3/uL (2.2-4.8) 06/21/23 04:30 Lymph # (Auto) 2.0 X10^3/uL (1.3-2.9) 06/21/23 04:30 [place] # (Auto) 0.6 x10^3/uL (0.3-0.8) 06/21/23 04:30 Eos # (Auto) 0.3 x10^3/uL (0.0-0.2) H 06/21/23 04:30 Baso # (Auto) 0.1 X10^3/uL (0.0-0.1) 06/21/23 04:30 Absolute Nucleated RBC 0.1 /100WBC 06/21/23 04:30 Plt Morphology Comment Normal (NORMAL) 06/21/23 04:30 RBC Morphology Abnormal (NORMAL) A 06/21/23 04:30 Anisocytosis Slight A 06/21/23 04:30 Target Cells Present 06/21/23 04:30 Ovalocytes Present 06/20/23 04:38 Sodium 139 mmol/L (136-145) 06/21/23 04:30 Corrected Sodium TNP 06/21/23 04:30 Potassium 3.2 mmol/L (3.5-5.1) L 06/21/23 04:30 Chloride 107 mmol/L (98-107) 06/21/23 04:30 Carbon Dioxide 26.4 mmol/L (21-32) 06/21/23 04:30 BUN 16 mg/dL (7-18) 06/21/23 04:30 Creatinine 1.30 mg/dL (0.55-1.02) H 06/21/23 04:30 Est GFR (MDRD) Af Amer 51 (>60) L 06/21/23 04:30 Est GFR (MDRD) Non-Af 42 (>60) L 06/21/23 04:30 Glucose 108 mg/dL (65-99) H 06/21/23 04:30 POC Glucose (mg/dL) 115 mg/dL (65-99) H 06/21/23 11:24 Hemoglobin A1c 5.0 % 06/15/23 13:23 Calcium 7.9 mg/dL (8.5-10.1) L 06/21/23 04:30 Corrected Calcium 9.4 mg/dL (8.5-10.1) 06/21/23 04:30 Magnesium 1.7 mg/dL (2.0-2.9) L 06/21/23 04:30 Total Bilirubin 1.70 mg/dL (0.2-1.0) H 06/21/23 04:30 AST 144 Units/L (15-37) H 06/21/23 04:30 ALT 21 Units/L (12-78) 06/21/23 04:30 Alkaline Phosphatase 294 Units/L (46-116) H 06/21/23 04:30 B-Natriuretic Peptide 542 pg/mL (0-79) H 06/15/23 13:23 Total Protein 5.0 g/dL (6.4-8.2) L 06/21/23 04:30 Albumin 2.1 g/dL (3.4-5.0) L 06/21/23 04:30 Globulin 2.9 g/dL (2.5-4.5) 06/21/23 04:30 Albumin/Globulin Ratio 0.7 Ratio (1.1-2.1) L 06/21/23 04:30 Carcinoembryonic Ag 507.0 ng/mL 06/15/23 13:23 Specimen Type Clean catch urine 06/16/23 03:45 Urine Color [place] (YELLOW) 06/16/23 03:45 Urine Appearance Clear (CLEAR) 06/16/23 03:45 Urine pH 5.0 (5.0 - 8.0) 06/16/23 03:45 Ur Specific [place] 1.015 (1.000-1.030) 06/16/23 03:45 Urine Protein 2+ (NEGATIVE) 06/16/23 03:45 Urine Glucose (UA) Negative (NEGATIVE) 06/16/23 03:45 Urine Ketones Negative (NEGATIVE) 06/16/23 03:45 Urine Blood Negative (NEGATIVE) 06/16/23 03:45 Urine Nitrite Negative (NEGATIVE) 06/16/23 03:45 Urine Bilirubin Negative (NEGATIVE) 06/16/23 03:45 Urine Urobilinogen 1+ (NORMAL) 06/16/23 03:45 Ur Leukocyte Esterase Negative (NEGATIVE) 06/16/23 03:45 Urine RBC 0-2 /HPF (0-3) 06/16/23 03:45 Urine WBC None seen /HPF (0-5) 06/16/23 03:45 Ur Squamous Epith Cells Few /HPF (NEGATIVE) 06/16/23 03:45 Amorphous Sediment Trace /HPF (NEGATIVE) 06/16/23 03:45 Urine Bacteria Trace /HPF (NEGATIVE) 06/16/23 03:45 Hyaline Casts Moderate /LPF (NEGATIVE) 06/16/23 03:45 Ur Culture Indicated? Yes/culture set up 06/16/23 03:45 Procedures (ALL) - Central Line Placement PCM.CLCO: written consent Time out performed: Yes Patient placed pm monitor/pulse ox: Yes prep: mask, gown, gloves, other (MSBT) Centrial line prep: chlorhexidine scrub Local anesthsia used: lidocane 1% (2cc SQ) Ultrasound used for placement: Yes (good visual) Central line lumen ininserted: triple Post procedure: sutured in place, good blood return, all ports aspirated, flushed,capped, sterile dressing applied (biopatch) Post procedure xray: tip oc catheter in good position, no pneumothorax seen, other Patient tolerated procedure: Yes (x1 attempt to Right IJ ) Complications: none
--- NOTE | 2023-06-21 12:01 | PCM.PROG ---
Progress Note - Progress Note for Day of Date of Exam: 06/20/23 - Subjective Subjective: WAS ADMITTED ON 06/15 INPATIENT STATUS FOR TREATMENT OF SEVERE ABDOMINAL PAIN, DEHYDRATION, BILATERAL LOWER EXTREMITY EDEMA, GENERALIZED WEAKNESS, DECREASED APPETITE, AND WEIGHT LOSS. WE SUSPECTED THAT SHE HAS A METASTATIN COLON CANCER, BASED ON THE COLONOSCOPY FINDINGS AND THE CTs THAT WE HAVE OBTAINED, HOWEVER, WE ARE AWAITING THE BIOPSY REPORTS. TODAY, SHE IS ALERT AND ORIENTED, LYING IN BED ON MORNING ROUNDS. SHE CONTINUES WITH COMPLAINTS OF DIFFUSE ABDOMINAL PAIN, WEAKNESS, AND DECREASED APPETITE. SHE DOES ADMIT TO SLIGHT IMPROVEMENT IN SYMPTOMS TODAY. ON EXAMINATION, HEART IS REGULAR IN RATE AND RHYTHM. BILATERAL LUNGS ARE NOTED WITH DIMINISHED LUNG SOUNDS THROUGHOUT. ABDOMEN IS ROUND, SOFT, AND NOTED WITH DIFFUSE TENDERNESS. GOOD RANGE OF MOTION NOTED TO UPPER AND LOWER EXTREMITIES. THERE CONTINUES TO BE 2+ PITTING EDEMA OF LOWER EXTREMITIES. HER VITALS THIS MORNING ARE: 97.6-74-20-100%-104/52. LABS WERE OBTAINED. WBC 7.0, RBC 2.95, HGB 9.0, HCT 27.3, PLT COUNT 212, SODIUM 139, POTASSIUM 3.9, CHLORIDE 107, BUN 14, CREATININE 1.32, GLUCOSE 76, CALCIUM 7.8, TOTAL BILI 1.80, AST 173, ALT 23, ALK PHOS 324, TOTAL PROTEIN 5.1, ALBUMIN 2.0. PATHOLOGY REPORTS FROM THE BIOPSIES OBTAINED DURING THE COLONOSCOPY ARE PENDING. WE OBTAINED A CHEST XRAY THIS MORNING AND IT WAS NEGATIVE FOR ACUTE CARDIOPULMONARY FINDINGS. SHE IS CURRENTLY RECEIVING: NORMAL SALINE WITH MULTIVITAMINS AT 80 ML/HR, OTBS ACHS, HUMULIN R SLIDING SCALE, NYSTATIN POWDER BID, XANAX 0.5MG BID PRN, WELLBUTRIN XL 150MG DAILY, LOVENOX 40MG SC AILY, ALBUMIN 25% IV DAILY, MAALOX 30ML Q4H PRN. HER HOME MEDICATIONS OF FOLIC ACID, SYNTHROID, COZAAR, MECLIZINE PRN, METFORMIN, TOPROL XL, HEMOCYTE PLUS WERE RESUMED. WE WILL INCREASE HER ALPRAZOLAM TO TID PRN TODAY AND ADD TPN. WE WILL DECREASE HER DOSE OF COZAAR TO 25MG DAILY. OTHERWISE, WE WILL FOLLOW UP WITH AM LABS AND CONTINUE TO MONITOR. TIME SPENT ON CLINICAL ASSESSMENT, REVIEWING LABS AND IMAGING, DECISION MAKING, AND DOCUMENTATION GR EATER THAN 45 MINUTES. - Past Medical Family Social History Past Med/Fam/Surg Hx: No changes since H&P Allergies: Allergies codeine Allergy (Verified 08/30/22 18:00) oxycodone Allergy (Verified 08/30/22 18:38) - Review of Systems ROS: No change since H&P - Vital Signs and I&O's Vital Signs: Vital Signs Temperature 97.7 F Pulse Rate [Left Brachial] 80 Respiratory Rate 18 Blood Pressure [Left Arm] 122/57 O2 Sat by Pulse Oximetry 100 Intake and Output: Intake & Output 06/18/23 06/19/23 06/20/23 06/21/23 11:59 11:59 11:59 11:59 Intake Total 1934 1310 / 1310 1690 / 1690 Output Total 720 / 720 Balance 1934 1310 / 1310 970 / 970 - Physical Exam Oriented: Normal Eyes: Normal Ear: Normal Nose: Normal Respiratory: Normal Cardiovascular: Edema (2+ PITTING EDEMA OF BILATERAL LOWER EXTREMITIES ) : Normal Auscultation: Bowel Sounds: Normal Palpation: Normal Tenderness: Diffuse (soft abdomen with diffuse tenderness ..BS+) Skin: Normal Musculoskeletal: Normal Psychiatric: Normal Mood Description: Calm Affect: Normal Speech Pattern: Clear, Appropriate - Laboratory and Diagnostics Result Diagrams: 06/21/23 04:30 06/21/23 04:30 Labs: 06/16/23 03:45 Urine,Clean Catch Urine Culture - Final Laboratory WBC 6.8 X10^3/uL (3.6-10.0) 06/21/23 04:30 RBC 2.76 X10^6/uL (3.5-5.4) L 06/21/23 04:30 Hgb 8.4 g/dL (12.0-16.0) L 06/21/23 04:30 Hct 25.6 % (36.0-47.0) L 06/21/23 04:30 MCV 92.6 fL (80.0-100.0) 06/21/23 04:30 MCH 30.6 pg (27.0-34.0) 06/21/23 04:30 MCHC 33.0 g/dL (33.0-35.0) 06/21/23 04:30 RDW 18.7 % (11.6-16.5) H 06/21/23 04:30 Plt Count 193 X10^3/uL (150.0-450.0) 06/21/23 04:30 Plt Count Comment Adequate (ADEQUATE) 06/21/23 04:30 MPV 7.5 fL (7.4-11.0) 06/21/23 04:30 Neut % (Auto) 56.2 % (42.0-75.0) 06/21/23 04:30 Lymph % (Auto) 28.8 % (21.0-51.0) 06/21/23 04:30 [place] % (Auto) 9.2 % (0.0-13.0) 06/21/23 04:30 Eos % (Auto) 3.9 % (0.9-2.9) H 06/21/23 04:30 Baso % (Auto) 1.9 % (0.2-1.0) H 06/21/23 04:30 Neut # (Auto) 3.8 x10^3/uL (2.2-4.8) 06/21/23 04:30 Lymph # (Auto) 2.0 X10^3/uL (1.3-2.9) 06/21/23 04:30 [place] # (Auto) 0.6 x10^3/uL (0.3-0.8) 06/21/23 04:30 Eos # (Auto) 0.3 x10^3/uL (0.0-0.2) H 06/21/23 04:30 Baso # (Auto) 0.1 X10^3/uL (0.0-0.1) 06/21/23 04:30 Absolute Nucleated RBC 0.1 /100WBC 06/21/23 04:30 Plt Morphology Comment Normal (NORMAL) 06/21/23 04:30 RBC Morphology Abnormal (NORMAL) A 06/21/23 04:30 Anisocytosis Slight A 06/21/23 04:30 Target Cells Present 06/21/23 04:30 Ovalocytes Present 06/20/23 04:38 Sodium 139 mmol/L (136-145) 06/21/23 04:30 Corrected Sodium TNP 06/21/23 04:30 Potassium 3.2 mmol/L (3.5-5.1) L 06/21/23 04:30 Chloride 107 mmol/L (98-107) 06/21/23 04:30 Carbon Dioxide 26.4 mmol/L (21-32) 06/21/23 04:30 BUN 16 mg/dL (7-18) 06/21/23 04:30 Creatinine 1.30 mg/dL (0.55-1.02) H 06/21/23 04:30 Est GFR (MDRD) Af Amer 51 (>60) L 06/21/23 04:30 Est GFR (MDRD) Non-Af 42 (>60) L 06/21/23 04:30 Glucose 108 mg/dL (65-99) H 06/21/23 04:30 POC Glucose (mg/dL) 115 mg/dL (65-99) H 06/21/23 11:24 Hemoglobin A1c 5.0 % 06/15/23 13:23 Calcium 7.9 mg/dL (8.5-10.1) L 06/21/23 04:30 Corrected Calcium 9.4 mg/dL (8.5-10.1) 06/21/23 04:30 Magnesium 1.7 mg/dL (2.0-2.9) L 06/21/23 04:30 Total Bilirubin 1.70 mg/dL (0.2-1.0) H 06/21/23 04:30 AST 144 Units/L (15-37) H 06/21/23 04:30 ALT 21 Units/L (12-78) 06/21/23 04:30 Alkaline Phosphatase 294 Units/L (46-116) H 06/21/23 04:30 B-Natriuretic Peptide 542 pg/mL (0-79) H 06/15/23 13:23 Total Protein 5.0 g/dL (6.4-8.2) L 06/21/23 04:30 Albumin 2.1 g/dL (3.4-5.0) L 06/21/23 04:30 Globulin 2.9 g/dL (2.5-4.5) 06/21/23 04:30 Albumin/Globulin Ratio 0.7 Ratio (1.1-2.1) L 06/21/23 04:30 Carcinoembryonic Ag 507.0 ng/mL 06/15/23 13:23 Specimen Type Clean catch urine 06/16/23 03:45 Urine Color [place] (YELLOW) 06/16/23 03:45 Urine Appearance Clear (CLEAR) 06/16/23 03:45 Urine pH 5.0 (5.0 - 8.0) 06/16/23 03:45 Ur Specific [place] 1.015 (1.000-1.030) 06/16/23 03:45 Urine Protein 2+ (NEGATIVE) 06/16/23 03:45 Urine Glucose (UA) Negative (NEGATIVE) 06/16/23 03:45 Urine Ketones Negative (NEGATIVE) 06/16/23 03:45 Urine Blood Negative (NEGATIVE) 06/16/23 03:45 Urine Nitrite Negative (NEGATIVE) 06/16/23 03:45 Urine Bilirubin Negative (NEGATIVE) 06/16/23 03:45 Urine Urobilinogen 1+ (NORMAL) 06/16/23 03:45 Ur Leukocyte Esterase Negative (NEGATIVE) 06/16/23 03:45 Urine RBC 0-2 /HPF (0-3) 06/16/23 03:45 Urine WBC None seen /HPF (0-5) 06/16/23 03:45 Ur Squamous Epith Cells Few /HPF (NEGATIVE) 06/16/23 03:45 Amorphous Sediment Trace /HPF (NEGATIVE) 06/16/23 03:45 Urine Bacteria Trace /HPF (NEGATIVE) 06/16/23 03:45 Hyaline Casts Moderate /LPF (NEGATIVE) 06/16/23 03:45 Ur Culture Indicated? Yes/culture set up 06/16/23 03:45 - Plan (1) Abdominal pain Status: Acute Qualifiers: Abdominal location: generalized Qualified Code(s): R10.84 - Generalized abdominal pain Plan: NORMAL SALINE AT KVO, TPN AT 70 ML/HR, OTBS ACHS, HUMULIN R SLIDING SCALE, NYSTATIN POWDER BID, XANAX 0.5MG TID PRN, WELLBUTRIN XL 150MG DAILY, LOVENOX 40MG SC DAILY, ALBUMIN 25% IV DAILY, MAALOX 30ML Q4H PRN. RESUME HOME MEDS (2) Dehydration Status: Acute (3) Generalized weakness Status: Acute Plan: PT/OT (4) Weight loss Status: Acute (5) Lower extremity edema Status: Acute (6) Generalized anxiety disorder Status: Acute Plan: ALPRAZOLAM 0.5MG BID (7) DM II (diabetes mellitus, type II), controlled Status: Chronic Qualifiers: Diabetes mellitus intermediate manager insulin use: with intermediate manager use Diabetes mellitus complication status: with hyperglycemia Qualified Code(s): E11.65 - Type 2 diabetes mellitus with hyperglycemia; Z79.4 - retirement (current) use of insulin Plan: OTBS ACHS, HUMULIN R SLIDING SCALE, CONTINUE HOME MEDS (8) HTN (hypertension) Status: Chronic Qualifiers: Hypertension type: primary hypertension Plan: CONTINUE HOME MEDS
--- NOTE | 2023-06-21 12:20 | PCM.PROG ---
Progress Note - Progress Note for Day of Date of Exam: 06/21/23 - Subjective Subjective: WAS ADMITTED ON 06/15 INPATIENT STATUS FOR TREATMENT OF SEVERE ABDOMINAL PAIN, DEHYDRATION, BILATERAL LOWER EXTREMITY EDEMA, GENERALIZED WEAKNESS, DECREASED APPETITE, AND WEIGHT LOSS. WE SUSPECTED THAT SHE HAS A METASTATIC COLON CANCER, BASED ON THE COLONOSCOPY FINDINGS AND THE CTs THAT WE HAVE OBTAINED, HOWEVER, WE ARE AWAITING THE BIOPSY REPORTS. TODAY, SHE IS ALERT AND ORIENTED, LYING IN BED ON MORNING ROUNDS. SHE CONTINUES WITH COMPLAINTS OF DIFFUSE ABDOMINAL PAIN, WEAKNESS, AND DECREASED APPETITE. SHE DOES ADMIT TO SLIGHT IMPROVEMENT IN SYMPTOMS TODAY. ON EXAMINATION, HEART IS REGULAR IN RATE AND RHYTHM. BILATERAL LUNGS ARE NOTED WITH DIMINISHED LUNG SOUNDS THROUGHOUT. ABDOMEN IS ROUND, SOFT, AND NOTED WITH DIFFUSE TENDERNESS. GOOD RANGE OF MOTION NOTED TO UPPER AND LOWER EXTREMITIES. THERE CONTINUES TO BE 2+ PITTING EDEMA OF LOWER EXTREMITIES. HER VITALS THIS MORNING ARE: 97.7-80-18-100%-122/57. LABS WERE OBTAINED. WBC 6.8, RBC 2.76, HGB 8.4, HCT 25.6, PLT COUNT 193, SODIUM 139, POTASSIUM 3.2, CHLORIDE 107, BUN 16, CREATININE 1.30, GLUCOSE 108, CALCIUM 7.9, TOTAL BILI 1.70, AST 144, ALT 21, ALK PHOS 294, TOTAL PROTEIN 5.0, ALBUMIN 2.1. PATHOLOGY REPORTS FROM THE BIOPSIES OBTAINED DURING THE COLONOSCOPY ARE PENDING. SHE IS CURRENTLY RECEIVING: NORMAL SALINE AT 20 ML/HR, OTBS ACHS, TPN AT 70 ML/HR, HUMULIN R SLIDING SCALE, NYSTATIN POWDER BID, XANAX 0.5MG TID PRN, WELLBUTRIN XL 150MG DAILY, LOVENOX 40MG SC DAILY, ALBUMIN 25% IV DAILY, MAALOX 30ML Q4H PRN. HER HOME MEDICATIONS OF FOLIC ACID, SYNTHROID, COZAAR, MECLIZINE PRN, METFORMIN, TOPROL XL, HEMOCYTE PLUS WERE RESUMED. WE WILL HAVE PHYSICAL THERAPY EVALUATE AND WORK WITH PATIENT TODAY. DUE TO POOR VENOUS ACCESS, WE WILL CONSULT ANESTHESIA FOR A CENTRAL LINE. OTHERWISE, WE WILL FOLLOW UP WITH AM LABS AND CONTINUE TO MONITOR. TIME SPENT ON CLINICAL ASSESSMENT, REVIEWING LABS AND IMAGING, DECISION MAKING, AND DOCUMENTATION GREATER THAN 45 MINUTES. - Past Medical Family Social History Past Med/Fam/Surg Hx: No changes since H&P Allergies: Allergies codeine Allergy (Verified 08/30/22 18:00) oxycodone Allergy (Verified 08/30/22 18:38) - Review of Systems ROS: No change since H&P - Vital Signs and I&O's Vital Signs: Vital Signs Temperature 97.7 F Pulse Rate [Left Brachial] 80 Respiratory Rate 18 Blood Pressure [Left Arm] 122/57 O2 Sat by Pulse Oximetry 100 Intake and Output: Intake & Output 06/19/23 06/20/23 06/21/23 06/22/23 11:59 11:59 11:59 11:59 Intake Total 2130 1310 / 1310 1690 / 1690 Output Total 720 / 720 Balance 2130 1310 / 1310 970 / 970 - Physical Exam Oriented: Normal Eyes: Normal Ear: Normal Nose: Normal Respiratory: Normal Cardiovascular: Edema (2+ PITTING EDEMA OF BILATERAL LOWER EXTREMITIES ) : Normal Auscultation: Bowel Sounds: Normal Palpation: Normal Tenderness: Diffuse (soft abdomen with diffuse tenderness ..BS+) Skin: Normal Musculoskeletal: Normal Psychiatric: Normal Mood Description: Calm Affect: Normal Speech Pattern: Clear, Appropriate - Laboratory and Diagnostics Result Diagrams: 06/21/23 04:30 06/21/23 04:30 Labs: 06/16/23 03:45 Urine,Clean Catch Urine Culture - Final Laboratory WBC 6.8 X10^3/uL (3.6-10.0) 06/21/23 04:30 RBC 2.76 X10^6/uL (3.5-5.4) L 06/21/23 04:30 Hgb 8.4 g/dL (12.0-16.0) L 06/21/23 04:30 Hct 25.6 % (36.0-47.0) L 06/21/23 04:30 MCV 92.6 fL (80.0-100.0) 06/21/23 04:30 MCH 30.6 pg (27.0-34.0) 06/21/23 04:30 MCHC 33.0 g/dL (33.0-35.0) 06/21/23 04:30 RDW 18.7 % (11.6-16.5) H 06/21/23 04:30 Plt Count 193 X10^3/uL (150.0-450.0) 06/21/23 04:30 Plt Count Comment Adequate (ADEQUATE) 06/21/23 04:30 MPV 7.5 fL (7.4-11.0) 06/21/23 04:30 Neut % (Auto) 56.2 % (42.0-75.0) 06/21/23 04:30 Lymph % (Auto) 28.8 % (21.0-51.0) 06/21/23 04:30 [place] % (Auto) 9.2 % (0.0-13.0) 06/21/23 04:30 Eos % (Auto) 3.9 % (0.9-2.9) H 06/21/23 04:30 Baso % (Auto) 1.9 % (0.2-1.0) H 06/21/23 04:30 Neut # (Auto) 3.8 x10^3/uL (2.2-4.8) 06/21/23 04:30 Lymph # (Auto) 2.0 X10^3/uL (1.3-2.9) 06/21/23 04:30 [place] # (Auto) 0.6 x10^3/uL (0.3-0.8) 06/21/23 04:30 Eos # (Auto) 0.3 x10^3/uL (0.0-0.2) H 06/21/23 04:30 Baso # (Auto) 0.1 X10^3/uL (0.0-0.1) 06/21/23 04:30 Absolute Nucleated RBC 0.1 /100WBC 06/21/23 04:30 Plt Morphology Comment Normal (NORMAL) 06/21/23 04:30 RBC Morphology Abnormal (NORMAL) A 06/21/23 04:30 Anisocytosis Slight A 06/21/23 04:30 Target Cells Present 06/21/23 04:30 Ovalocytes Present 06/20/23 04:38 Sodium 139 mmol/L (136-145) 06/21/23 04:30 Corrected Sodium TNP 06/21/23 04:30 Potassium 3.2 mmol/L (3.5-5.1) L 06/21/23 04:30 Chloride 107 mmol/L (98-107) 06/21/23 04:30 Carbon Dioxide 26.4 mmol/L (21-32) 06/21/23 04:30 BUN 16 mg/dL (7-18) 06/21/23 04:30 Creatinine 1.30 mg/dL (0.55-1.02) H 06/21/23 04:30 Est GFR (MDRD) Af Amer 51 (>60) L 06/21/23 04:30 Est GFR (MDRD) Non-Af 42 (>60) L 06/21/23 04:30 Glucose 108 mg/dL (65-99) H 06/21/23 04:30 POC Glucose (mg/dL) 115 mg/dL (65-99) H 06/21/23 11:24 Hemoglobin A1c 5.0 % 06/15/23 13:23 Calcium 7.9 mg/dL (8.5-10.1) L 06/21/23 04:30 Corrected Calcium 9.4 mg/dL (8.5-10.1) 06/21/23 04:30 Magnesium 1.7 mg/dL (2.0-2.9) L 06/21/23 04:30 Total Bilirubin 1.70 mg/dL (0.2-1.0) H 06/21/23 04:30 AST 144 Units/L (15-37) H 06/21/23 04:30 ALT 21 Units/L (12-78) 06/21/23 04:30 Alkaline Phosphatase 294 Units/L (46-116) H 06/21/23 04:30 B-Natriuretic Peptide 542 pg/mL (0-79) H 06/15/23 13:23 Total Protein 5.0 g/dL (6.4-8.2) L 06/21/23 04:30 Albumin 2.1 g/dL (3.4-5.0) L 06/21/23 04:30 Globulin 2.9 g/dL (2.5-4.5) 06/21/23 04:30 Albumin/Globulin Ratio 0.7 Ratio (1.1-2.1) L 06/21/23 04:30 Carcinoembryonic Ag 507.0 ng/mL 06/15/23 13:23 Specimen Type Clean catch urine 06/16/23 03:45 Urine Color [place] (YELLOW) 06/16/23 03:45 Urine Appearance Clear (CLEAR) 06/16/23 03:45 Urine pH 5.0 (5.0 - 8.0) 06/16/23 03:45 Ur Specific [place] 1.015 (1.000-1.030) 06/16/23 03:45 Urine Protein 2+ (NEGATIVE) 06/16/23 03:45 Urine Glucose (UA) Negative (NEGATIVE) 06/16/23 03:45 Urine Ketones Negative (NEGATIVE) 06/16/23 03:45 Urine Blood Negative (NEGATIVE) 06/16/23 03:45 Urine Nitrite Negative (NEGATIVE) 06/16/23 03:45 Urine Bilirubin Negative (NEGATIVE) 06/16/23 03:45 Urine Urobilinogen 1+ (NORMAL) 06/16/23 03:45 Ur Leukocyte Esterase Negative (NEGATIVE) 06/16/23 03:45 Urine RBC 0-2 /HPF (0-3) 06/16/23 03:45 Urine WBC None seen /HPF (0-5) 06/16/23 03:45 Ur Squamous Epith Cells Few /HPF (NEGATIVE) 06/16/23 03:45 Amorphous Sediment Trace /HPF (NEGATIVE) 06/16/23 03:45 Urine Bacteria Trace /HPF (NEGATIVE) 06/16/23 03:45 Hyaline Casts Moderate /LPF (NEGATIVE) 06/16/23 03:45 Ur Culture Indicated? Yes/culture set up 06/16/23 03:45 - Plan (1) Abdominal pain Status: Acute Qualifiers: Abdominal location: generalized Qualified Code(s): R10.84 - Generalized abdominal pain Plan: NORMAL SALINE AT KVO, TPN AT 70 ML/HR, OTBS ACHS, HUMULIN R SLIDING SCALE, NYSTATIN POWDER BID, XANAX 0.5MG TID PRN, WELLBUTRIN XL 150MG DAILY, LOVENOX 40MG SC DAILY, ALBUMIN 25% IV DAILY, MAALOX 30ML Q4H PRN. RESUME HOME MEDS (2) Mass of colon Status: Acute Plan: PATHOLOGY REPORT PENDING. (3) Dehydration Status: Acute (4) Generalized weakness Status: Acute Plan: PT/OT (5) Weight loss Status: Acute (6) Lower extremity edema Status: Acute (7) Hypoalbuminemia Status: Acute (8) Hypoproteinemia Status: Acute (9) Generalized anxiety disorder Status: Acute Plan: ALPRAZOLAM 0.5MG BID (10) DM II (diabetes mellitus, type II), controlled Status: Chronic Qualifiers: Diabetes mellitus [facility] insulin use: with termite inspector use Diabetes mellitus complication status: with hyperglycemia Qualified Code(s): E11.65 - Type 2 diabetes mellitus with hyperglycemia; Z79.4 - termite inspector (current) use of insulin Plan: OTBS ACHS, HUMULIN R SLIDING SCALE, CONTINUE HOME MEDS (11) HTN (hypertension) Status: Chronic Qualifiers: Hypertension type: primary hypertension Plan: CONTINUE HOME MEDS
[2023-06-21] MEDS ORDERED: DRUG FILTER EXTENSION SET ONE (15:39)
[2023-06-21] MEDS: SNACK - Diabetic Appropriate PO SCH (22:24)
[2023-06-21] MEDS: XANAX PO PRN (23:01)
[2023-06-22] MEDS: NS 1,000 ML IV 1,000 ML IV SCH ×4 (01:27→15:25)
[2023-06-22 06:06] LABS: BASOPHILS # (AUTO) 0.1 X10^3/uL (0.0-0.1); EOSINOPHILS # (AUTO) 0.2 x10^3/uL (0.0-0.2); MEAN PLATELET VOLUME 7.3 fL (7.4-11.0); MONOCYTES # (AUTO) 0.6 x10^3/uL (0.3-0.8)
[2023-06-22 06:20] LABS: ALBUMIN 1.9 g/dL (3.4-5.0); CALCIUM 7.4 mg/dL (8.5-10.1); CARBON DIOXIDE 21.7 mmol/L (21-32); COR CA(FOR HYPOALB) 9.1 mg/dL (8.5-10.1); CREATININE 1.27 mg/dL (0.55-1.02); MAGNESIUM 1.9 mg/dL (2.0-2.9); POTASSIUM 3.2 mmol/L (3.5-5.1); TOTAL PROTEIN 4.9 g/dL (6.4-8.2)
[2023-06-22 06:21] LABS: EOSINOPHILS % (AUTO) 2.5 % (0.9-2.9); HEMATOCRIT 25.3 % (36.0-47.0); HEMOGLOBIN 8.4 g/dL (12.0-16.0); LYMPHOCYTES # (AUTO) 1.9 X10^3/uL (1.3-2.9); LYMPHOCYTES % (AUTO) 26.4 % (21.0-51.0); MEAN CORPUSCULAR HEMOGLOBIN 30.9 pg (27.0-34.0); MEAN CORPUSCULAR HGB CONC 33.3 g/dL (33.0-35.0); MEAN CORPUSCULAR VOLUME 92.7 fL (80.0-100.0); MONOCYTES % (AUTO) 8.8 % (0.0-13.0); NEUTROPHILS # (AUTO) 4.3 x10^3/uL (2.2-4.8); NEUTROPHILS % (AUTO) 60.3 % (42.0-75.0); PLATELET COUNT 184 X10^3/uL (150.0-450.0); RED BLOOD COUNT 2.73 X10^6/uL (3.5-5.4); RED CELL DISTRIBUTION WIDTH 19.1 % (11.6-16.5); WHITE BLOOD COUNT 7.1 X10^3/uL (3.6-10.0)
[2023-06-22 06:33] LABS: ANISOCYTOSIS SLIGHT; PLATELET MORPHOLOGY COMMENT NORMAL (NORMAL); SCHISTOCYTES SLIGHT; TARGET CELLS SLIGHT
[2023-06-22] MEDS: MVI IV SCH ×12 (09:17→15:29)
[2023-06-22] MEDS: CLINIMIX IV SCH ×12 (09:17→15:29)
[2023-06-22] MEDS: [UNRECOGNIZED DRUG - OTHER] IV SCH ×12 (09:17→15:29)
[2023-06-22] MEDS: LOVENOX INJ 40 MG SYR SC SCH (09:19)
[2023-06-22] MEDS: WELLBUTRIN XL 150 MG (DAILY) PO SCH (09:20)
[2023-06-22] MEDS: LASIX IVP SCH (09:20)
[2023-06-22] MEDS: FOLIC ACID TAB 1 MG PO SCH (09:20)
[2023-06-22] MEDS: TOPROL XL PO SCH (09:20)
[2023-06-22] MEDS: MEGACE PO SCH ×2 (09:20→20:52)
[2023-06-22] MEDS: SYNTHROID 50 mcg TAB PO SCH (09:20)
[2023-06-22] MEDS: ALBUMIN HUMAN 25%- 100 ML 100 ML IV SCH (09:21)
[2023-06-22] MEDS: HEMOCYTE-PLUS PO SCH (09:21)
[2023-06-22] MEDS: COZAAR PO SCH (09:21)
[2023-06-22] MEDS: NYSTATIN POWDER TOP SCH ×2 (09:42→21:00)
--- NOTE | 2023-06-22 10:37 | RAD ---
EXAM:CHEST, 1 VIEWHISTORY:S/P, CENTRAL LINE PLACEMENT;COMPARISON:None.FINDINGS:Heart : The cardiomediastinal silhouette is normal in size.Lungs: Right side line tip over the SVC unchanged.Bones:The bony thorax appears age appropriate.IMPRESSION:1. Elevated right hemidiaphragm.2. Right side line tip over the SVC unchanged.THIS IS AN ELECTRONICALLY VERIFIED FINAL [id number]/2023 2:25 PM - Electronically signed by Mitchell Hanson DO
[2023-06-22] MEDS: XANAX PO PRN (11:50)
[2023-06-22] MEDS: PROTONIX INJ 40 MG VIAL IVP SCH ×2 (11:50→20:53)
[2023-06-22] MEDS: TORADOL 15 MG VIAL IVP SCH ×2 (11:51→20:54)
--- NOTE | 2023-06-22 17:45 | PCM.PROG ---
Progress Note - Progress Note for Day of Date of Exam: 06/22/23 - Subjective Subjective: WAS ADMITTED ON 06/15 INPATIENT STATUS FOR TREATMENT OF SEVERE ABDOMINAL PAIN, DEHYDRATION, BILATERAL LOWER EXTREMITY EDEMA, GENERALIZED WEAKNESS, DECREASED APPETITE, AND WEIGHT LOSS. CT SCAN ON ADMISSION REVEALED A COLON MASS AND WAS CONFIRMED WITH COLONOSCOPY. PATHOLOGY REPORT CAME BACK YESTERDAY AND REVEALED ADENOCARCINOMA. TODAY, SHE IS ALERT AND ORIENTED, LYING IN BED ON MORNING ROUNDS. SHE CONTINUES WITH COMPLAINTS OF DIFFUSE ABDOMINAL PAIN, WEAKNESS, AND DECREASED APPETITE. SHE DOES ADMIT TO SLIGHT IMPROVEMENT IN SYMPTOMS TODAY. ON EXAMINATION, HEART IS REGULAR IN RATE AND RHYTHM. BILATERAL LUNGS ARE NOTED WITH DIMINISHED LUNG SOUNDS THROUGHOUT. ABDOMEN IS ROUND, SOFT, AND NOTED WITH DIFFUSE TENDERNESS. GOOD RANGE OF MOTION NOTED TO UPPER AND LOWER EXTREMITIES. THERE CONTINUES TO BE 2+ PITTING EDEMA OF UPPER AND LOWER EXTREMITIES. HER VITALS THIS MORNING ARE: 98.1-91-20-97%-121/59. LABS WERE OBTAINED. WBC 7.1, RBC 2.73, HGB 8.4, HCT 25.3, PLT COUNT 184, SODIUM 138, POTASSIUM 3.2, CHLORIDE 106, BUN 17, CREATININE 1.27, GLUCOSE 180, CALCIUM 7.4, MAGNESIUM 1.9, TOTAL BILI 1.90, AST 145, ALT 22, ALK PHOS 329, TOTAL PROTEIN 4.9, ALBUMIN 1.9. SHE IS CURRENTLY RECEIVING: NORMAL SALINE AT 20 ML/HR, OTBS ACHS, TPN AT 70 ML/HR, HUMULIN R SLIDING SCALE, NYSTATIN POWDER BID, XANAX 0.5MG TID PRN, WELLBUTRIN XL 150MG DAILY, LOVENOX 40MG SC DAILY, ALBUMIN 25% IV DAILY, MAALOX 30ML Q4H PRN. HER HOME MEDICATIONS OF FOLIC ACID, SYNTHROID, COZAAR, MECLIZINE PRN, METFORMIN, TOPROL XL, HEMOCYTE PLUS WERE RESUMED. WE WILL HAVE PHYSICAL THERAPY WORK WITH PATIENT TODAY. WE DISCUSSED THE PATHOLOGY REPORTS WITH PATIENT AND HER FAMILY. WE WILL REFER PATIENT TO , ONCOLOGIST. OTHERWISE, WE WILL FOLLOW UP WITH AM LABS AND CONTINUE TO MONITOR. TIME SPENT ON CLINICAL ASSESSMENT, REVIEWING LABS AND IMAGING, DECISION MAKING, AND DOCUMENTATION GREATER THAN 45 MINUTES. - Past Medical Family Social History Past Med/Fam/Surg Hx: No changes since H&P Allergies: Allergies codeine Allergy (Verified 08/30/22 18:00) oxycodone Allergy (Verified 08/30/22 18:38) - Review of Systems ROS: No change since H&P - Vital Signs and I&O's Vital Signs: Vital Signs Temperature 97.5 F Temperature 97.5 F Pulse Rate [Left Brachial] 81 Pulse Rate [Left Brachial] 88 Respiratory Rate 20 Respiratory Rate 20 Respiratory Rate 20 Respiratory Rate 20 Blood Pressure [Left Arm] 111/58 Blood Pressure [Left Arm] 121/65 O2 Sat by Pulse Oximetry 100 O2 Sat by Pulse Oximetry 99 Intake and Output: Intake & Output 06/20/23 06/21/23 06/22/23 06/23/23 11:59 11:59 11:59 11:59 Intake Total 1310 / 1310 1690 / 1690 1872 / 1872 1003 / 1003 Output Total 720 / 720 Balance 1310 / 1310 970 / 970 1872 / 1872 1003 / 1003 - Physical Exam Oriented: Normal Eyes: Normal Ear: Normal Nose: Normal Respiratory: Normal Cardiovascular: Edema (2+ PITTING EDEMA OF BILATERAL UPPER AND LOWER EXTREMITIES ) : Normal Auscultation: Bowel Sounds: Normal Tenderness: Diffuse (soft abdomen with diffuse tenderness ..BS+) Skin: Normal Musculoskeletal: Normal Psychiatric: Normal Mood Description: Calm Affect: Normal Speech Pattern: Clear, Appropriate - Laboratory and Diagnostics Result Diagrams: 06/22/23 05:45 06/22/23 05:45 Labs: 06/16/23 03:45 Urine,Clean Catch Urine Culture - Final Laboratory WBC 7.1 X10^3/uL (3.6-10.0) 06/22/23 05:45 RBC 2.73 X10^6/uL (3.5-5.4) L 06/22/23 05:45 Hgb 8.4 g/dL (12.0-16.0) L 06/22/23 05:45 Hct 25.3 % (36.0-47.0) L 06/22/23 05:45 MCV 92.7 fL (80.0-100.0) 06/22/23 05:45 MCH 30.9 pg (27.0-34.0) 06/22/23 05:45 MCHC 33.3 g/dL (33.0-35.0) 06/22/23 05:45 RDW 19.1 % (11.6-16.5) H 06/22/23 05:45 Plt Count 184 X10^3/uL (150.0-450.0) 06/22/23 05:45 Plt Count Comment Adequate (ADEQUATE) 06/22/23 05:45 MPV 7.3 fL (7.4-11.0) L 06/22/23 05:45 Neut % (Auto) 60.3 % (42.0-75.0) 06/22/23 05:45 Lymph % (Auto) 26.4 % (21.0-51.0) 06/22/23 05:45 [place] % (Auto) 8.8 % (0.0-13.0) 06/22/23 05:45 Eos % (Auto) 2.5 % (0.9-2.9) 06/22/23 05:45 Baso % (Auto) 2.0 % (0.2-1.0) H 06/22/23 05:45 Neut # (Auto) 4.3 x10^3/uL (2.2-4.8) 06/22/23 05:45 Lymph # (Auto) 1.9 X10^3/uL (1.3-2.9) 06/22/23 05:45 [place] # (Auto) 0.6 x10^3/uL (0.3-0.8) 06/22/23 05:45 Eos # (Auto) 0.2 x10^3/uL (0.0-0.2) 06/22/23 05:45 Baso # (Auto) 0.1 X10^3/uL (0.0-0.1) 06/22/23 05:45 Absolute Nucleated RBC 0.0 /100WBC 06/22/23 05:45 Plt Morphology Comment Normal (NORMAL) 06/22/23 05:45 RBC Morphology Abnormal (NORMAL) A 06/22/23 05:45 Anisocytosis Slight A 06/22/23 05:45 Target Cells Slight A 06/22/23 05:45 Ovalocytes Present 06/20/23 04:38 Schistocytes Slight A 06/22/23 05:45 Sodium 138 mmol/L (136-145) 06/22/23 05:45 Corrected Sodium 140 mmol/L (136-145) 06/22/23 05:45 Potassium 3.2 mmol/L (3.5-5.1) L 06/22/23 05:45 Chloride 106 mmol/L (98-107) 06/22/23 05:45 Carbon Dioxide 21.7 mmol/L (21-32) 06/22/23 05:45 BUN 17 mg/dL (7-18) 06/22/23 05:45 Creatinine 1.27 mg/dL (0.55-1.02) H 06/22/23 05:45 Est GFR (MDRD) Af Amer 52 (>60) L 06/22/23 05:45 Est GFR (MDRD) Non-Af 43 (>60) L 06/22/23 05:45 Glucose 180 mg/dL (65-99) H 06/22/23 05:45 POC Glucose (mg/dL) 136 mg/dL (65-99) H 06/22/23 16:24 Hemoglobin A1c 5.0 % 06/15/23 13:23 Calcium 7.4 mg/dL (8.5-10.1) L 06/22/23 05:45 Corrected Calcium 9.1 mg/dL (8.5-10.1) 06/22/23 05:45 Magnesium 1.9 mg/dL (2.0-2.9) L 06/22/23 05:45 Total Bilirubin 1.90 mg/dL (0.2-1.0) H 06/22/23 05:45 AST 145 Units/L (15-37) H 06/22/23 05:45 ALT 22 Units/L (12-78) 06/22/23 05:45 Alkaline Phosphatase 329 Units/L (46-116) H 06/22/23 05:45 B-Natriuretic Peptide 542 pg/mL (0-79) H 06/15/23 13:23 Total Protein 4.9 g/dL (6.4-8.2) L 06/22/23 05:45 Albumin 1.9 g/dL (3.4-5.0) L 06/22/23 05:45 Globulin 3.0 g/dL (2.5-4.5) 06/22/23 05:45 Albumin/Globulin Ratio 0.6 Ratio (1.1-2.1) L 06/22/23 05:45 Carcinoembryonic Ag 507.0 ng/mL 06/15/23 13:23 Specimen Type Clean catch urine 06/16/23 03:45 Urine Color [place] (YELLOW) 06/16/23 03:45 Urine Appearance Clear (CLEAR) 06/16/23 03:45 Urine pH 5.0 (5.0 - 8.0) 06/16/23 03:45 Ur Specific [place] 1.015 (1.000-1.030) 06/16/23 03:45 Urine Protein 2+ (NEGATIVE) 06/16/23 03:45 Urine Glucose (UA) Negative (NEGATIVE) 06/16/23 03:45 Urine Ketones Negative (NEGATIVE) 06/16/23 03:45 Urine Blood Negative (NEGATIVE) 06/16/23 03:45 Urine Nitrite Negative (NEGATIVE) 06/16/23 03:45 Urine Bilirubin Negative (NEGATIVE) 06/16/23 03:45 Urine Urobilinogen 1+ (NORMAL) 06/16/23 03:45 Ur Leukocyte Esterase Negative (NEGATIVE) 06/16/23 03:45 Urine RBC 0-2 /HPF (0-3) 06/16/23 03:45 Urine WBC None seen /HPF (0-5) 06/16/23 03:45 Ur Squamous Epith Cells Few /HPF (NEGATIVE) 06/16/23 03:45 Amorphous Sediment Trace /HPF (NEGATIVE) 06/16/23 03:45 Urine Bacteria Trace /HPF (NEGATIVE) 06/16/23 03:45 Hyaline Casts Moderate /LPF (NEGATIVE) 06/16/23 03:45 Ur Culture Indicated? Yes/culture set up 06/16/23 03:45 Tissue Pathology See comment. 06/17/23 09:00 - Plan (1) Abdominal pain Status: Acute Qualifiers: Abdominal location: generalized Qualified Code(s): R10.84 - Generalized abdominal pain Plan: NORMAL SALINE AT KVO, TPN AT 70 ML/HR, OTBS ACHS, HUMULIN R SLIDING SCALE, NYSTATIN POWDER BID, XANAX 0.5MG TID PRN, WELLBUTRIN XL 150MG DAILY, LOVENOX 40MG SC DAILY, ALBUMIN 25% IV DAILY, MAALOX 30ML Q4H PRN. RESUME HOME MEDS (2) Mass of colon Status: Acute Plan: PATHOLOGY REPORT PENDING. (3) Dehydration Status: Acute (4) Generalized weakness Status: Acute Plan: PT/OT (5) Weight loss Status: Acute (6) Lower extremity edema Status: Acute (7) Hypoalbuminemia Status: Acute (8) Hypoproteinemia Status: Acute (9) Generalized anxiety disorder Status: Acute Plan: ALPRAZOLAM 0.5MG BID (10) DM II (diabetes mellitus, type II), controlled Status: Chronic Qualifiers: Diabetes mellitus met[place] insulin use: with jail use Diabetes mellitus complication status: with hyperglycemia Qualified Code(s): E11.65 - Type 2 diabetes mellitus with hyperglycemia; Z79.4 - senior living (current) use of insulin Plan: OTBS ACHS, HUMULIN R SLIDING SCALE, CONTINUE HOME MEDS (11) HTN (hypertension) Status: Chronic Qualifiers: Hypertension type: primary hypertension Plan: CONTINUE HOME MEDS
[2023-06-22] MEDS: SNACK - Diabetic Appropriate PO SCH (20:07)
[2023-06-23] MEDS ORDERED: DRUG FILTER EXTENSION SET ONE (01:37)
[2023-06-23] MEDS: MVI IV SCH ×8 (01:50→18:23)
[2023-06-23] MEDS: [UNRECOGNIZED DRUG - OTHER] IV SCH ×8 (01:50→18:23)
[2023-06-23] MEDS: CLINIMIX IV SCH ×8 (01:50→18:23)
[2023-06-23] MEDS: NS 1,000 ML IV 1,000 ML IV SCH ×2 (04:24→17:02)
[2023-06-23] MEDS: TORADOL 15 MG VIAL IVP SCH ×3 (04:52→20:23)
[2023-06-23 06:21] LABS: ALBUMIN 2.3 g/dL (3.4-5.0); BASOPHILS # (AUTO) 0.1 X10^3/uL (0.0-0.1); BASOPHILS % (AUTO) 1.4 % (0.2-1.0); CALCIUM 8.2 mg/dL (8.5-10.1); CARBON DIOXIDE 23.1 mmol/L (21-32); COR CA(FOR HYPOALB) 9.6 mg/dL (8.5-10.1); CREATININE 1.33 mg/dL (0.55-1.02); EOSINOPHILS # (AUTO) 0.3 x10^3/uL (0.0-0.2); EOSINOPHILS % (AUTO) 4.1 % (0.9-2.9); HEMATOCRIT 27.6 % (36.0-47.0); HEMOGLOBIN 9.2 g/dL (12.0-16.0); LYMPHOCYTES # (AUTO) 2.3 X10^3/uL (1.3-2.9); LYMPHOCYTES % (AUTO) 33.2 % (21.0-51.0); MEAN CORPUSCULAR HEMOGLOBIN 31.3 pg (27.0-34.0); MEAN CORPUSCULAR HGB CONC 33.3 g/dL (33.0-35.0); MEAN CORPUSCULAR VOLUME 93.8 fL (80.0-100.0); MEAN PLATELET VOLUME 7.6 fL (7.4-11.0); MONOCYTES # (AUTO) 0.6 x10^3/uL (0.3-0.8); MONOCYTES % (AUTO) 8.6 % (0.0-13.0); NEUTROPHILS # (AUTO) 3.6 x10^3/uL (2.2-4.8); NEUTROPHILS % (AUTO) 52.7 % (42.0-75.0); PLATELET COUNT 169 X10^3/uL (150.0-450.0); POTASSIUM 3.6 mmol/L (3.5-5.1); RED BLOOD COUNT 2.94 X10^6/uL (3.5-5.4); RED CELL DISTRIBUTION WIDTH 19.7 % (11.6-16.5); TOTAL PROTEIN 5.5 g/dL (6.4-8.2); WHITE BLOOD COUNT 6.9 X10^3/uL (3.6-10.0)
[2023-06-23 06:55] LABS: PLATELET MORPHOLOGY COMMENT NORMAL (NORMAL)
[2023-06-23 06:56] LABS: ANISOCYTOSIS SLIGHT; SCHISTOCYTES SLIGHT; TARGET CELLS SLIGHT
[2023-06-23] MEDS ORDERED: CONSULT PHARMACY - POTASSIUM & MAGNESIUM XX SCH (08:00)
[2023-06-23] MEDS: ALBUMIN HUMAN 25%- 100 ML 100 ML IV SCH (09:27)
[2023-06-23] MEDS: LOVENOX INJ 40 MG SYR SC SCH (09:28)
[2023-06-23] MEDS: LASIX IVP SCH (09:28)
[2023-06-23] MEDS: COZAAR PO SCH (09:28)
[2023-06-23] MEDS: PROTONIX INJ 40 MG VIAL IVP SCH ×2 (09:28→20:24)
[2023-06-23] MEDS: XANAX PO PRN (09:29)
[2023-06-23] MEDS: NYSTATIN POWDER TOP SCH ×2 (09:31→21:00)
[2023-06-23] MEDS: WELLBUTRIN XL 150 MG (DAILY) PO SCH (09:31)
[2023-06-23] MEDS: TOPROL XL PO SCH (09:31)
[2023-06-23] MEDS: SYNTHROID 50 mcg TAB PO SCH (09:31)
[2023-06-23] MEDS: MEGACE PO SCH ×2 (09:31→20:24)
[2023-06-23] MEDS: HEMOCYTE-PLUS PO SCH (09:32)
[2023-06-23] MEDS: FOLIC ACID TAB 1 MG PO SCH (09:32)
[2023-06-23] MEDS ORDERED: XANAX PO PRN (12:37)
[2023-06-23] MEDS: SNACK - Diabetic Appropriate PO SCH (20:24)
[2023-06-24] MEDS: TORADOL 15 MG VIAL IVP SCH ×3 (04:10→20:23)
[2023-06-24 06:09] LABS: BASOPHILS # (AUTO) 0.1 X10^3/uL (0.0-0.1); BASOPHILS % (AUTO) 1.7 % (0.2-1.0); EOSINOPHILS # (AUTO) 0.3 x10^3/uL (0.0-0.2); EOSINOPHILS % (AUTO) 4.9 % (0.9-2.9); HEMATOCRIT 26.6 % (36.0-47.0); HEMOGLOBIN 8.9 g/dL (12.0-16.0); LYMPHOCYTES # (AUTO) 1.9 X10^3/uL (1.3-2.9); LYMPHOCYTES % (AUTO) 27.8 % (21.0-51.0); MEAN CORPUSCULAR HEMOGLOBIN 31.3 pg (27.0-34.0); MEAN CORPUSCULAR HGB CONC 33.3 g/dL (33.0-35.0); MEAN CORPUSCULAR VOLUME 93.9 fL (80.0-100.0); MEAN PLATELET VOLUME 7.9 fL (7.4-11.0); MONOCYTES # (AUTO) 0.6 x10^3/uL (0.3-0.8); MONOCYTES % (AUTO) 8.4 % (0.0-13.0); NEUTROPHILS # (AUTO) 3.9 x10^3/uL (2.2-4.8); NEUTROPHILS % (AUTO) 57.2 % (42.0-75.0); PLATELET COUNT 158 X10^3/uL (150.0-450.0); RED BLOOD COUNT 2.83 X10^6/uL (3.5-5.4); WHITE BLOOD COUNT 6.9 X10^3/uL (3.6-10.0)
[2023-06-24 06:10] LABS: ALBUMIN 2.6 g/dL (3.4-5.0); CALCIUM 8.2 mg/dL (8.5-10.1); COR CA(FOR HYPOALB) 9.3 mg/dL (8.5-10.1); CREATININE 1.36 mg/dL (0.55-1.02); POTASSIUM 4.1 mmol/L (3.5-5.1); TOTAL PROTEIN 5.8 g/dL (6.4-8.2)
[2023-06-24 06:33] LABS: PLATELET MORPHOLOGY COMMENT NORMAL (NORMAL)
[2023-06-24 06:34] LABS: ANISOCYTOSIS 1+; TARGET CELLS 1+
[2023-06-24] MEDS: ALBUMIN HUMAN 25%- 100 ML 100 ML IV SCH (09:49)
[2023-06-24] MEDS: COZAAR PO SCH (09:49)
[2023-06-24] MEDS: SYNTHROID 50 mcg TAB PO SCH (09:50)
[2023-06-24] MEDS: TOPROL XL PO SCH (09:50)
[2023-06-24] MEDS: WELLBUTRIN XL 150 MG (DAILY) PO SCH (09:50)
[2023-06-24] MEDS: PROTONIX INJ 40 MG VIAL IVP SCH ×2 (09:51→20:23)
[2023-06-24] MEDS: NYSTATIN POWDER TOP SCH ×2 (09:51→20:23)
[2023-06-24] MEDS: MEGACE PO SCH ×2 (09:51→20:23)
[2023-06-24] MEDS: FOLIC ACID TAB 1 MG PO SCH (09:51)
[2023-06-24] MEDS: LASIX IVP SCH (09:52)
[2023-06-24] MEDS: HEMOCYTE-PLUS PO SCH (09:52)
[2023-06-24] MEDS: [UNRECOGNIZED DRUG - OTHER] IV SCH ×4 (11:20)
[2023-06-24] MEDS: MVI IV SCH ×4 (11:20)
[2023-06-24] MEDS: CLINIMIX IV SCH ×4 (11:20)
[2023-06-24] MEDS: NS 1,000 ML IV 1,000 ML IV SCH ×2 (11:48→21:52)
--- NOTE | 2023-06-24 17:36 | PCM.PROG ---
Progress Note - Progress Note for Day of Date of Exam: 06/23/23 - Subjective Subjective: WAS ADMITTED ON 06/15 INPATIENT STATUS FOR TREATMENT OF COLON CANCER WITH SUSPECTED METS TO THE LUNGS AND LIVER, ABDOMINAL PAIN, DEHYDRATION, BILATERAL LOWER EXTREMITY EDEMA, GENERALIZED WEAKNESS, DECREASED APPETITE, AND WEIGHT LOSS. TODAY, SHE IS ALERT AND ORIENTED, LYING IN BED ON MORNING ROUNDS. SHE CONTINUES WITH COMPLAINTS OF DIFFUSE ABDOMINAL PAIN, WEAKNESS, AND DECREASED APPETITE. SHE REPORTS AN INCREASE IN PAIN SINCE YESTERDAY. PAIN HAS NOT BEEN CONTROLLED WITH TORADOL. ON EXAMINATION, HEART IS REGULAR IN RATE AND RHYTHM. BILATERAL LUNGS ARE NOTED WITH DIMINISHED LUNG SOUNDS THROUGHOUT. ABDOMEN IS ROUND, SOFT, AND NOTED WITH DIFFUSE TENDERNESS. GOOD RANGE OF MOTION NOTED TO UPPER AND LOWER EXTREMITIES. THERE CONTINUES TO BE 2+ PITTING EDEMA OF UPPER AND LOWER EXTREMITIES. HER VITALS THIS MORNING ARE: 97.6-83-18-100%-113/65. LABS WERE OBTAINED. WBC 6.9, RBC 2.94, HGB 9.2, HCT 27.6, PLT COUNT 169, SODIUM 138, POTASSIUM 3.6, CHLORIDE 106, CARBON DIOXIDE 23.1, BUN 22, CREATININE 1.33, GLUCOSE 132, CALCIUM 8.2, MAGNESIUM 2.0, TOTAL BILI 2.20, AST 170, ALT 25, ALK PHOS 357, TOTAL PROTEIN 5.5, ALBUMIN 2.3. SHE IS CURRENTLY RECEIVING: NORMAL SALINE AT 20 ML/HR, OTBS ACHS, TPN AT 60 ML/HR, HUMULIN R SLIDING SCALE, TORADOL 15MG IV Q8H, NYSTATIN POWDER BID, XANAX 0.25MG TID PRN, WELLBUTRIN XL 150MG DAILY, ALBUMIN 25% IV DAILY, MAALOX 30ML Q4H PRN. HER HOME MEDICATIONS OF FOLIC ACID, SYNTHROID, COZAAR, MECLIZINE PRN, TOPROL XL, HEMOCYTE PLUS WERE RESUMED. TODAY, WE WILL ADD A DURAGESIC 25MCG/HR TD PATCH. WE WILL HAVE PHYSICAL THERAPY WORK WITH PATIENT TODAY. WE HAVE SCHEDULED AN APPOINTMENT WITH , ONCOLOGIST FOR TUESDAY. OTHERWISE, WE WILL FOLLOW UP WITH AM LABS AND CONTINUE TO MONITOR. TIME SPENT ON CLINICAL ASSESSMENT, REVIEWING LABS AND IMAGING, DECISION MAKING, AND DOCUMENTATION GREATER THAN 45 MINUTES. - Past Medical Family Social History Past Med/Fam/Surg Hx: No changes since H&P Allergies: Allergies oxycodone Allergy (Mild, Verified 06/23/23 12:40) codeine Adverse Reaction (Mild, Verified 06/23/23 12:40) - Review of Systems ROS: No change since H&P - Vital Signs and I&O's Vital Signs: Vital Signs Temperature 97.6 F Temperature 97.9 F Pulse Rate [Left Brachial] 82 Pulse Rate [Left Brachial] 84 Respiratory Rate 18 Respiratory Rate 18 Blood Pressure [Left Arm] 110/59 Blood Pressure [Left Arm] 116/59 O2 Sat by Pulse Oximetry 100 O2 Sat by Pulse Oximetry 99 Intake and Output: Intake & Output 06/22/23 06/23/23 06/24/23 06/25/23 11:59 11:59 11:59 11:59 Intake Total 1871 / 2213 1926 / 1926 Balance 1871 / 2213 - Physical Exam Oriented: Normal Eyes: Normal Ear: Normal Nose: Normal Respiratory: Normal Cardiovascular: Edema (2+ PITTING EDEMA OF BILATERAL UPPER AND LOWER EXTREMITIES ) : Normal Auscultation: Bowel Sounds: Normal Palpation: Normal Tenderness: Diffuse (soft abdomen with diffuse tenderness ..BS+) Skin: Normal Musculoskeletal: Normal Psychiatric: Normal Mood Description: Calm Affect: Normal Speech Pattern: Clear, Appropriate - Laboratory and Diagnostics Result Diagrams: 06/24/23 05:30 06/24/23 05:30 Labs: 06/16/23 03:45 Urine,Clean Catch Urine Culture - Final Laboratory WBC 6.9 X10^3/uL (3.6-10.0) 06/24/23 05:30 RBC 2.83 X10^6/uL (3.5-5.4) L 06/24/23 05:30 Hgb 8.9 g/dL (12.0-16.0) L 06/24/23 05:30 Hct 26.6 % (36.0-47.0) L 06/24/23 05:30 MCV 93.9 fL (80.0-100.0) 06/24/23 05:30 MCH 31.3 pg (27.0-34.0) 06/24/23 05:30 MCHC 33.3 g/dL (33.0-35.0) 06/24/23 05:30 RDW 20.0 % (11.6-16.5) H 06/24/23 05:30 Plt Count 158 X10^3/uL (150.0-450.0) 06/24/23 05:30 Plt Count Comment Adequate (ADEQUATE) 06/24/23 05:30 MPV 7.9 fL (7.4-11.0) 06/24/23 05:30 Neut % (Auto) 57.2 % (42.0-75.0) 06/24/23 05:30 Lymph % (Auto) 27.8 % (21.0-51.0) 06/24/23 05:30 [place] % (Auto) 8.4 % (0.0-13.0) 06/24/23 05:30 Eos % (Auto) 4.9 % (0.9-2.9) H 06/24/23 05:30 Baso % (Auto) 1.7 % (0.2-1.0) H 06/24/23 05:30 Neut # (Auto) 3.9 x10^3/uL (2.2-4.8) 06/24/23 05:30 Lymph # (Auto) 1.9 X10^3/uL (1.3-2.9) 06/24/23 05:30 Wise # (Auto) 0.6 x10^3/uL (0.3-0.8) 06/24/23 05:30 Eos # (Auto) 0.3 x10^3/uL (0.0-0.2) H 06/24/23 05:30 Baso # (Auto) 0.1 X10^3/uL (0.0-0.1) 06/24/23 05:30 Absolute Nucleated RBC 0.1 /100WBC 06/24/23 05:30 Plt Morphology Comment Normal (NORMAL) 06/24/23 05:30 RBC Morphology Abnormal (NORMAL) A 06/24/23 05:30 Anisocytosis 1+ A 06/24/23 05:30 Target Cells 1+ A 06/24/23 05:30 Ovalocytes Present 06/20/23 04:38 Schistocytes Slight A 06/23/23 05:32 Sodium 136 mmol/L (136-145) 06/24/23 05:30 Corrected Sodium 137 mmol/L (136-145) 06/24/23 05:30 Potassium 4.1 mmol/L (3.5-5.1) 06/24/23 05:30 Chloride 105 mmol/L (98-107) 06/24/23 05:30 Carbon Dioxide 21.0 mmol/L (21-32) 06/24/23 05:30 BUN 28 mg/dL (7-18) H 06/24/23 05:30 Creatinine 1.36 mg/dL (0.55-1.02) H 06/24/23 05:30 Est GFR (MDRD) Af Amer 48 (>60) L 06/24/23 05:30 Est GFR (MDRD) Non-Af 40 (>60) L 06/24/23 05:30 Glucose 148 mg/dL (65-99) H 06/24/23 05:30 POC Glucose (mg/dL) 147 mg/dL (65-99) H 06/24/23 17:01 Hemoglobin A1c 5.0 % 06/15/23 13:23 Calcium 8.2 mg/dL (8.5-10.1) L 06/24/23 05:30 Corrected Calcium 9.3 mg/dL (8.5-10.1) 06/24/23 05:30 Magnesium 2.0 mg/dL (2.0-2.9) 06/23/23 05:32 Total Bilirubin 2.90 mg/dL (0.2-1.0) H 06/24/23 05:30 AST 202 Units/L (15-37) H 06/24/23 05:30 ALT 27 Units/L (12-78) 06/24/23 05:30 Alkaline Phosphatase 386 Units/L (46-116) H 06/24/23 05:30 B-Natriuretic Peptide 542 pg/mL (0-79) H 06/15/23 13:23 Total Protein 5.8 g/dL (6.4-8.2) L 06/24/23 05:30 Albumin 2.6 g/dL (3.4-5.0) L 06/24/23 05:30 Globulin 3.2 g/dL (2.5-4.5) 06/24/23 05:30 Albumin/Globulin Ratio 0.8 Ratio (1.1-2.1) L 06/24/23 05:30 Carcinoembryonic Ag 507.0 ng/mL 06/15/23 13:23 Specimen Type Clean catch urine 06/16/23 03:45 Urine Color Monica (YELLOW) 06/16/23 03:45 Urine Appearance Clear (CLEAR) 06/16/23 03:45 Urine pH 5.0 (5.0 - 8.0) 06/16/23 03:45 Ur Specific [place] 1.015 (1.000-1.030) 06/16/23 03:45 Urine Protein 2+ (NEGATIVE) 06/16/23 03:45 Urine Glucose (UA) Negative (NEGATIVE) 06/16/23 03:45 Urine Ketones Negative (NEGATIVE) 06/16/23 03:45 Urine Blood Negative (NEGATIVE) 06/16/23 03:45 Urine Nitrite Negative (NEGATIVE) 06/16/23 03:45 Urine Bilirubin Negative (NEGATIVE) 06/16/23 03:45 Urine Urobilinogen 1+ (NORMAL) 06/16/23 03:45 Ur Leukocyte Esterase Negative (NEGATIVE) 06/16/23 03:45 Urine RBC 0-2 /HPF (0-3) 06/16/23 03:45 Urine WBC None seen /HPF (0-5) 06/16/23 03:45 Ur Squamous Epith Cells Few /HPF (NEGATIVE) 06/16/23 03:45 Amorphous Sediment Trace /HPF (NEGATIVE) 06/16/23 03:45 Urine Bacteria Trace /HPF (NEGATIVE) 06/16/23 03:45 Hyaline Casts Moderate /LPF (NEGATIVE) 06/16/23 03:45 Ur Culture Indicated? Yes/culture set up 06/16/23 03:45 Tissue Pathology See comment. 06/17/23 09:00 - Plan (1) Abdominal pain Status: Acute Qualifiers: Abdominal location: generalized Qualified Code(s): R10.84 - Generalized abdominal pain Plan: NORMAL SALINE AT KVO, TPN AT 70 ML/HR, OTBS ACHS, HUMULIN R SLIDING SCALE, DURAGESIC PATCH 25MCG/HR, NYSTATIN POWDER BID, XANAX 0.25MG TID PRN, WELLBUTRIN XL 150MG DAILY, ALBUMIN 25% IV DAILY, MAALOX 30ML Q4H PRN. RESUME HOME MEDS (2) Mass of colon Status: Acute Plan: PATHOLOGY REPORT PENDING. (3) Dehydration Status: Acute (4) Generalized weakness Status: Acute Plan: PT/OT (5) Weight loss Status: Acute (6) Lower extremity edema Status: Acute (7) Hypoalbuminemia Status: Acute (8) Hypoproteinemia Status: Acute (9) Generalized anxiety disorder Status: Acute Plan: ALPRAZOLAM 0.5MG BID (10) DM II (diabetes mellitus, type II), controlled Status: Chronic Qualifiers: Diabetes mellitus fci insulin use: with fci use Diabetes mellitus complication status: with hyperglycemia Qualified Code(s): E11.65 - Type 2 diabetes mellitus with hyperglycemia; Z79.4 - halfway (current) use of insulin Plan: OTBS ACHS, HUMULIN R SLIDING SCALE, CONTINUE HOME MEDS (11) HTN (hypertension) Status: Chronic Qualifiers: Hypertension type: primary hypertension Plan: CONTINUE HOME MEDS
[2023-06-24] MEDS: MILK OF MAGNESIA PO SCH (20:23)
[2023-06-24] MEDS: COLACE CAP 100 MG PO SCH (20:23)
[2023-06-24] MEDS: SNACK - Diabetic Appropriate PO SCH (20:23)
[2023-06-25] MEDS: CLINIMIX IV SCH ×16 (03:27→22:50)
[2023-06-25] MEDS: [UNRECOGNIZED DRUG - OTHER] IV SCH ×16 (03:27→22:50)
[2023-06-25] MEDS: MVI IV SCH ×16 (03:27→22:50)
[2023-06-25] MEDS: TORADOL 15 MG VIAL IVP SCH ×3 (03:40→21:11)
[2023-06-25] MEDS ORDERED: DRUG FILTER EXTENSION SET ONE ×2 (05:18→22:17)
[2023-06-25] MEDS: NYSTATIN POWDER TOP SCH ×3 (06:01→21:11)
[2023-06-25] MEDS: NS 1,000 ML IV 1,000 ML IV SCH ×2 (06:02→21:09)
[2023-06-25 06:52] LABS: EOSINOPHILS # (AUTO) 0.3 x10^3/uL (0.0-0.2); HEMOGLOBIN 8.1 g/dL (12.0-16.0); MONOCYTES # (AUTO) 0.7 x10^3/uL (0.3-0.8)
[2023-06-25 07:00] LABS: BASOPHILS # (AUTO) 0.1 X10^3/uL (0.0-0.1); BASOPHILS % (AUTO) 0.8 % (0.2-1.0); EOSINOPHILS % (AUTO) 3.6 % (0.9-2.9); HEMATOCRIT 24.5 % (36.0-47.0); LYMPHOCYTES # (AUTO) 2.5 X10^3/uL (1.3-2.9); LYMPHOCYTES % (AUTO) 34.2 % (21.0-51.0); MEAN CORPUSCULAR HEMOGLOBIN 31.2 pg (27.0-34.0); MEAN CORPUSCULAR HGB CONC 33.1 g/dL (33.0-35.0); MEAN CORPUSCULAR VOLUME 94.4 fL (80.0-100.0); MEAN PLATELET VOLUME 8.2 fL (7.4-11.0); MONOCYTES % (AUTO) 9.8 % (0.0-13.0); NEUTROPHILS # (AUTO) 3.7 x10^3/uL (2.2-4.8); NEUTROPHILS % (AUTO) 51.6 % (42.0-75.0); PLATELET COUNT 138 X10^3/uL (150.0-450.0); RED CELL DISTRIBUTION WIDTH 21.4 % (11.6-16.5); WHITE BLOOD COUNT 7.2 X10^3/uL (3.6-10.0)
[2023-06-25 07:13] LABS: ALBUMIN 2.4 g/dL (3.4-5.0); CARBON DIOXIDE 19.3 mmol/L (21-32); COR CA(FOR HYPOALB) 9.3 mg/dL (8.5-10.1); CREATININE 1.31 mg/dL (0.55-1.02); POTASSIUM 4.3 mmol/L (3.5-5.1); TOTAL PROTEIN 5.4 g/dL (6.4-8.2)
[2023-06-25 07:24] LABS: ANISOCYTOSIS 1+; PLATELET MORPHOLOGY COMMENT NORMAL (NORMAL)
[2023-06-25 07:25] LABS: TARGET CELLS PRESENT
[2023-06-25] MEDS: WELLBUTRIN XL 150 MG (DAILY) PO SCH (08:48)
[2023-06-25] MEDS: COZAAR PO SCH (08:48)
[2023-06-25] MEDS: SYNTHROID 50 mcg TAB PO SCH (08:49)
[2023-06-25] MEDS: FOLIC ACID TAB 1 MG PO SCH (08:49)
[2023-06-25] MEDS: TOPROL XL PO SCH (08:49)
[2023-06-25] MEDS: HEMOCYTE-PLUS PO SCH (08:49)
[2023-06-25] MEDS: MEGACE PO SCH ×2 (08:49→20:29)
[2023-06-25] MEDS: PROTONIX INJ 40 MG VIAL IVP SCH ×2 (08:49→20:29)
[2023-06-25] MEDS: ALBUMIN HUMAN 25%- 100 ML 100 ML IV SCH (08:50)
[2023-06-25] MEDS: LASIX IVP SCH (08:50)
--- NOTE | 2023-06-25 12:52 | PCM.PROG ---
Progress Note Progress Note for Day of Date of Exam: 06/25/23 Subjective Subjective: Patient is at bedside, no acute events overnight. She is currently admitted for generalized weakness and metastatic colon cancer with mets to liver and lungs. She reports not having a BM since admission. She reports some abdominal discomfort. Her pain has been well-controlled with fentanyl patch. She has a f/u with Oncology on Tuesday. Labs/imaging - Hgb 8.1 AP 319 AST/ALT 216/34 Cr: 1.31 Plan: will get KUB, add stool softner. Continue current treatment. Continue home medications. Continue pain control. Continue hydration and TPN. Replace electrolytes as needed. Monitor AM labs/imaging. Past Medical Family Social History Past Med/Fam/Surg Hx: No changes since H&P Allergies: Allergies oxycodone Allergy (Mild, Verified 06/23/23 12:40) codeine Adverse Reaction (Mild, Verified 06/23/23 12:40) Review of Systems ROS: No change since H&P Vital Signs and I&O's Intake and Output: Intake & Output 06/22/23 06/23/23 06/24/23 06/25/23 23:59 23:59 23:59 23:59 Intake Total 1671 / 1671 2143 / 2143 3454 / 3454 1229 / 1229 Balance 1671 / 1671 2143 / 2143 3454 / 3454 1229 / 1229 Physical Exam Oriented: Normal Eyes: Normal Ear: Normal Nose: Normal Respiratory: Normal Cardiovascular: Edema (2+ PITTING EDEMA OF BILATERAL UPPER AND LOWER EXTREMITIES ) Auscultation: Bowel Sounds: Normal Tenderness: Diffuse (soft abdomen with mild epigastric tenderness ..BS+) Skin: Normal Musculoskeletal: Normal Psychiatric: Normal Mood Description: Calm Affect: Normal Speech Pattern: Clear and Appropriate Laboratory and Diagnostics 06/25/23 05:22 06/25/23 05:22 Labs: 06/16/23 03:45 Urine,Clean Catch Urine Culture - Final Laboratory WBC 7.2 X10^3/uL (3.6-10.0) 06/25/23 05:22 RBC 2.60 X10^6/uL (3.5-5.4) L 06/25/23 05:22 Hgb 8.1 g/dL (12.0-16.0) L 06/25/23 05:22 Hct 24.5 % (36.0-47.0) L 06/25/23 05:22 MCV 94.4 fL (80.0-100.0) 06/25/23 05:22 MCH 31.2 pg (27.0-34.0) 06/25/23 05:22 MCHC 33.1 g/dL (33.0-35.0) 06/25/23 05:22 RDW 21.4 % (11.6-16.5) H 06/25/23 05:22 Plt Count 138 X10^3/uL (150.0-450.0) L 06/25/23 05:22 Plt Count Comment Decreased (ADEQUATE) A 06/25/23 05:22 MPV 8.2 fL (7.4-11.0) 06/25/23 05:22 Neut % (Auto) 51.6 % (42.0-75.0) 06/25/23 05:22 Lymph % (Auto) 34.2 % (21.0-51.0) 06/25/23 05:22 [place] % (Auto) 9.8 % (0.0-13.0) 06/25/23 05:22 Eos % (Auto) 3.6 % (0.9-2.9) H 06/25/23 05:22 Baso % (Auto) 0.8 % (0.2-1.0) 06/25/23 05:22 Neut # (Auto) 3.7 x10^3/uL (2.2-4.8) 06/25/23 05:22 Lymph # (Auto) 2.5 X10^3/uL (1.3-2.9) 06/25/23 05:22 [place] # (Auto) 0.7 x10^3/uL (0.3-0.8) 06/25/23 05:22 Eos # (Auto) 0.3 x10^3/uL (0.0-0.2) H 06/25/23 05:22 Baso # (Auto) 0.1 X10^3/uL (0.0-0.1) 06/25/23 05:22 Absolute Nucleated RBC 0.0 /100WBC 06/25/23 05:22 Plt Morphology Comment Normal (NORMAL) 06/25/23 05:22 RBC Morphology Abnormal (NORMAL) A 06/25/23 05:22 Anisocytosis 1+ A 06/25/23 05:22 Target Cells Present 06/25/23 05:22 Ovalocytes Present 06/20/23 04:38 Schistocytes Slight A 06/23/23 05:32 Sodium 135 mmol/L (136-145) L 06/25/23 05:22 Corrected Sodium 137 mmol/L (136-145) 06/25/23 05:22 Potassium 4.3 mmol/L (3.5-5.1) 06/25/23 05:22 Chloride 106 mmol/L (98-107) 06/25/23 05:22 Carbon Dioxide 19.3 mmol/L (21-32) L 06/25/23 05:22 BUN 33 mg/dL (7-18) H 06/25/23 05:22 Creatinine 1.31 mg/dL (0.55-1.02) H 06/25/23 05:22 Est GFR (MDRD) Af Amer 50 (>60) L 06/25/23 05:22 Est GFR (MDRD) Non-Af 42 (>60) L 06/25/23 05:22 Glucose 171 mg/dL (65-99) H 06/25/23 05:22 POC Glucose (mg/dL) 194 mg/dL (65-99) H 06/25/23 11:06 Hemoglobin A1c 5.0 % 06/15/23 13:23 Calcium 8.0 mg/dL (8.5-10.1) L 06/25/23 05:22 Corrected Calcium 9.3 mg/dL (8.5-10.1) 06/25/23 05:22 Magnesium 2.1 mg/dL (2.0-2.9) 06/25/23 05:22 Total Bilirubin 2.90 mg/dL (0.2-1.0) H 06/25/23 05:22 AST 216 Units/L (15-37) H 06/25/23 05:22 ALT 34 Units/L (12-78) 06/25/23 05:22 Alkaline Phosphatase 319 Units/L (46-116) H 06/25/23 05:22 B-Natriuretic Peptide 542 pg/mL (0-79) H 06/15/23 13:23 Total Protein 5.4 g/dL (6.4-8.2) L 06/25/23 05:22 Albumin 2.4 g/dL (3.4-5.0) L 06/25/23 05:22 Globulin 3.0 g/dL (2.5-4.5) 06/25/23 05:22 Albumin/Globulin Ratio 0.8 Ratio (1.1-2.1) L 06/25/23 05:22 Carcinoembryonic Ag 507.0 ng/mL 06/15/23 13:23 Specimen Type Clean catch urine 06/16/23 03:45 Urine Color Monica (YELLOW) 06/16/23 03:45 Urine Appearance Clear (CLEAR) 06/16/23 03:45 Urine pH 5.0 (5.0 - 8.0) 06/16/23 03:45 Ur Specific [place] 1.015 (1.000-1.030) 06/16/23 03:45 Urine Protein 2+ (NEGATIVE) 06/16/23 03:45 Urine Glucose (UA) Negative (NEGATIVE) 06/16/23 03:45 Urine Ketones Negative (NEGATIVE) 06/16/23 03:45 Urine Blood Negative (NEGATIVE) 06/16/23 03:45 Urine Nitrite Negative (NEGATIVE) 06/16/23 03:45 Urine Bilirubin Negative (NEGATIVE) 06/16/23 03:45 Urine Urobilinogen 1+ (NORMAL) 06/16/23 03:45 Ur Leukocyte Esterase Negative (NEGATIVE) 06/16/23 03:45 Urine RBC 0-2 /HPF (0-3) 06/16/23 03:45 Urine WBC None seen /HPF (0-5) 06/16/23 03:45 Ur Squamous Epith Cells Few /HPF (NEGATIVE) 06/16/23 03:45 Amorphous Sediment Trace /HPF (NEGATIVE) 06/16/23 03:45 Urine Bacteria Trace /HPF (NEGATIVE) 06/16/23 03:45 Hyaline Casts Moderate /LPF (NEGATIVE) 06/16/23 03:45 Ur Culture Indicated? Yes/culture set up 06/16/23 03:45 Tissue Pathology See comment. 06/17/23 09:00 Plan (1) Abdominal pain: Status: Acute Qualifiers: Abdominal location: generalized Qualified Code(s): R10.84 - Generalized abdominal pain (2) Mass of colon: Status: Acute Plan: PATHOLOGY REPORT PENDING. (3) Dehydration: Status: Acute (4) Generalized weakness: Status: Acute Plan: PT/OT (5) Weight loss: Status: Acute (6) Lower extremity edema: Status: Acute (7) Hypoalbuminemia: Status: Acute (8) Hypoproteinemia: Status: Acute (9) Generalized anxiety disorder: Status: Acute Plan: ALPRAZOLAM 0.5MG BID (10) DM II (diabetes mellitus, type II), controlled: Status: Chronic Qualifiers: Diabetes mellitus complication status: with hyperglycemia Diabetes mellitus terminal manager insulin use: with fci use Qualified Code(s): E11.65 - Type 2 diabetes mellitus with hyperglycemia; Z79.4 - half-way (current) use of insulin Plan: OTBS ACHS, HUMULIN R SLIDING SCALE, CONTINUE HOME MEDS (11) HTN (hypertension): Status: Chronic Qualifiers: Hypertension type: primary hypertension Qualified Code(s): I10 - Essential (primary) hypertension Plan: CONTINUE HOME MEDS
[2023-06-25] MEDS: MIRALAX POWDER (1 DOSE 17 G) PO SCH ×2 (14:00→15:56)
[2023-06-25] MEDS: COLACE CAP 100 MG PO SCH (20:28)
[2023-06-25] MEDS: SNACK - Diabetic Appropriate PO SCH (20:29)
[2023-06-25] MEDS: MILK OF MAGNESIA PO SCH (20:29)
[2023-06-26] MEDS: TYLENOL 325 MG TAB PO PRN ×2 (00:08→06:03)
[2023-06-26] MEDS: TORADOL 15 MG VIAL IVP SCH ×3 (03:28→19:37)
[2023-06-26 07:04] LABS: BASOPHILS # (AUTO) 0.1 X10^3/uL (0.0-0.1); BASOPHILS % (AUTO) 0.7 % (0.2-1.0); EOSINOPHILS # (AUTO) 0.1 x10^3/uL (0.0-0.2); EOSINOPHILS % (AUTO) 1.4 % (0.9-2.9); HEMATOCRIT 23.7 % (36.0-47.0); MEAN CORPUSCULAR HEMOGLOBIN 31.9 pg (27.0-34.0); MEAN CORPUSCULAR HGB CONC 33.7 g/dL (33.0-35.0); MEAN CORPUSCULAR VOLUME 94.8 fL (80.0-100.0); MEAN PLATELET VOLUME 7.9 fL (7.4-11.0); MONOCYTES # (AUTO) 0.8 x10^3/uL (0.3-0.8); MONOCYTES % (AUTO) 9.3 % (0.0-13.0); NEUTROPHILS % (AUTO) 55.6 % (42.0-75.0); PLATELET COUNT 143 X10^3/uL (150.0-450.0); RED CELL DISTRIBUTION WIDTH 21.6 % (11.6-16.5)
[2023-06-26 07:08] LABS: ALBUMIN 2.6 g/dL (3.4-5.0); CALCIUM 8.5 mg/dL (8.5-10.1); CARBON DIOXIDE 19.2 mmol/L (21-32); COR CA(FOR HYPOALB) 9.6 mg/dL (8.5-10.1); CREATININE 1.42 mg/dL (0.55-1.02); MAGNESIUM 2.7 mg/dL (2.0-2.9); TOTAL PROTEIN 5.7 g/dL (6.4-8.2)
[2023-06-26 07:39] LABS: ANISOCYTOSIS 1+; PLATELET MORPHOLOGY COMMENT NORMAL (NORMAL)
[2023-06-26 07:40] LABS: TARGET CELLS PRESENT
[2023-06-26] MEDS ORDERED: DILAUDID INJ IVP PRN (08:18)
[2023-06-26] MEDS ORDERED: DILAUDID INJ ONE (08:24)
--- NOTE | 2023-06-26 08:57 | RAD ---
EXAM:KUBHISTORY:Pain constipationCOMPARISON:CT abdomen June 15, 2023FINDINGS:Intestinal gas pattern is normal and there is no evidence for obstruction, localized ileus, mass or pathologic calcification. Surgical clips right upper quadrant.IMPRESSION:No acute/significant abnormality identified.THIS IS AN ELECTRONICALLY VERIFIED FINAL [id number]/26/2023 8:54 AM - Electronically signed by Ronnie Sinha MD
[2023-06-26] MEDS: ZOFRAN INJ 4 MG VIAL IVP PRN ×3 (09:23→23:59)
[2023-06-26] MEDS: CLINIMIX 5 %/20 % 1,000 ML with MVI INJ (ADULT) 10 ML IV SCH ×2 (10:00)
[2023-06-26] MEDS: PROTONIX INJ 40 MG VIAL IVP SCH ×2 (10:00→20:40)
[2023-06-26] MEDS: ALBUMIN HUMAN 25%- 100 ML 100 ML IV SCH (10:00)
[2023-06-26] MEDS: NS 1,000 ML IV 1,000 ML IV SCH ×2 (10:00→21:21)
[2023-06-26] MEDS: COZAAR PO SCH (11:09)
[2023-06-26] MEDS: HEMOCYTE-PLUS PO SCH (11:09)
[2023-06-26] MEDS: WELLBUTRIN XL 150 MG (DAILY) PO SCH (11:09)
[2023-06-26] MEDS: FOLIC ACID TAB 1 MG PO SCH (11:09)
[2023-06-26] MEDS: MEGACE PO SCH ×2 (11:10→20:40)
[2023-06-26] MEDS: SYNTHROID 50 mcg TAB PO SCH (11:10)
[2023-06-26] MEDS: MIRALAX POWDER (1 DOSE 17 G) PO SCH (11:10)
[2023-06-26] MEDS: NYSTATIN POWDER TOP SCH ×2 (11:11→21:20)
[2023-06-26] MEDS: TOPROL XL PO SCH (11:11)
--- NOTE | 2023-06-26 11:40 | PCM.PROG ---
Progress Note Progress Note for Day of Date of Exam: 06/26/23 Subjective Subjective: Patient is at bedside, no acute events overnight. She is currently admitted for generalized weakness and metastatic colon cancer with mets to liver and lungs. She did receive a dose of Dilaudid this morning which made her nauseated. She did get Zofran. She appears drowsy during exam. She has an appointment with Dr Horton tomorrow. KUB done yesterday was normal. Labs/imaging - Hgb 8.0 AP 309 Na:132 AST: 265 Cr: 1.42 Plan: Increase NS to 75cc/hr. Continue current treatment. Continue home medications. Continue pain control. Follow surgery recommendations. Continue hydration and TPN. Replace electrolytes as needed. Monitor AM labs/imaging. Past Medical Family Social History Past Med/Fam/Surg Hx: No changes since H&P Allergies: Allergies oxycodone Allergy (Mild, Verified 06/23/23 12:40) codeine Adverse Reaction (Mild, Verified 06/23/23 12:40) Review of Systems ROS: No change since H&P Vital Signs and I&O's Vital Signs: Vital Signs Temperature 97.9 F Temperature 97.9 F Pulse Rate [Left Brachial] 93 Pulse Rate [Left Brachial] 93 Respiratory Rate 17 Respiratory Rate 20 Respiratory Rate 18 Respiratory Rate 20 Respiratory Rate 20 Respiratory Rate 20 Respiratory Rate 18 Blood Pressure [Left Arm] 117/56 Blood Pressure [Left Arm] 95/60 O2 Sat by Pulse Oximetry 98 O2 Sat by Pulse Oximetry 96 Intake and Output: Intake & Output 06/23/23 06/24/23 06/25/23 06/26/23 23:59 23:59 23:59 23:59 Intake Total 2143 / 2143 3454 / 3454 2681 / 2681 1496 / 1496 Balance 2143 / 2143 3454 / 3454 2681 / 2681 1496 / 1496 Physical Exam Oriented: Normal Eyes: Normal Ear: Normal Nose: Normal Respiratory: Normal Cardiovascular: Edema (2+ PITTING EDEMA OF BILATERAL UPPER AND LOWER EXTREMITIES ) Auscultation: Bowel Sounds: Normal Tenderness: Diffuse (soft abdomen with mild epigastric tenderness ..BS+) Skin: Normal Musculoskeletal: Normal Psychiatric: Normal Mood Description: Calm Affect: Normal Speech Pattern: Clear and Appropriate Laboratory and Diagnostics 06/26/23 06:14 06/26/23 06:14 Labs: 06/16/23 03:45 Urine,Clean Catch Urine Culture - Final Laboratory WBC 9.0 X10^3/uL (3.6-10.0) 06/26/23 06:14 RBC 2.50 X10^6/uL (3.5-5.4) L 06/26/23 06:14 Hgb 8.0 g/dL (12.0-16.0) L 06/26/23 06:14 Hct 23.7 % (36.0-47.0) L 06/26/23 06:14 MCV 94.8 fL (80.0-100.0) 06/26/23 06:14 MCH 31.9 pg (27.0-34.0) 06/26/23 06:14 MCHC 33.7 g/dL (33.0-35.0) 06/26/23 06:14 RDW 21.6 % (11.6-16.5) H 06/26/23 06:14 Plt Count 143 X10^3/uL (150.0-450.0) L 06/26/23 06:14 Plt Count Comment Decreased (ADEQUATE) A 06/26/23 06:14 MPV 7.9 fL (7.4-11.0) 06/26/23 06:14 Neut % (Auto) 55.6 % (42.0-75.0) 06/26/23 06:14 Lymph % (Auto) 33.0 % (21.0-51.0) 06/26/23 06:14 [place] % (Auto) 9.3 % (0.0-13.0) 06/26/23 06:14 Eos % (Auto) 1.4 % (0.9-2.9) 06/26/23 06:14 Baso % (Auto) 0.7 % (0.2-1.0) 06/26/23 06:14 Neut # (Auto) 5.0 x10^3/uL (2.2-4.8) H 06/26/23 06:14 Lymph # (Auto) 3.0 X10^3/uL (1.3-2.9) H 06/26/23 06:14 [place] # (Auto) 0.8 x10^3/uL (0.3-0.8) 06/26/23 06:14 Eos # (Auto) 0.1 x10^3/uL (0.0-0.2) 06/26/23 06:14 Baso # (Auto) 0.1 X10^3/uL (0.0-0.1) 06/26/23 06:14 Absolute Nucleated RBC 0.1 /100WBC 06/26/23 06:14 Total Counted Cancelled 06/26/23 06:14 Neutrophils % (Manual) Cancelled 06/26/23 06:14 Band Neutrophils % Cancelled 06/26/23 06:14 Lymphocytes % (Manual) Cancelled 06/26/23 06:14 Monocytes % (Manual) Cancelled 06/26/23 06:14 Eosinophils % (Manual) Cancelled 06/26/23 06:14 Basophils % (Manual) Cancelled 06/26/23 06:14 Metamyelocytes % Cancelled 06/26/23 06:14 Myelocytes % Cancelled 06/26/23 06:14 Promyelocytes % Cancelled 06/26/23 06:14 Plt Morphology Comment Normal (NORMAL) 06/26/23 06:14 RBC Morphology Abnormal (NORMAL) A 06/26/23 06:14 Anisocytosis 1+ A 06/26/23 06:14 Target Cells Present 06/26/23 06:14 Ovalocytes Present 06/20/23 04:38 Schistocytes Slight A 06/23/23 05:32 Sodium 129 mmol/L (136-145) L 06/26/23 06:14 Corrected Sodium 132 mmol/L (136-145) L 06/26/23 06:14 Potassium 5.0 mmol/L (3.5-5.1) 06/26/23 06:14 Chloride 103 mmol/L (98-107) 06/26/23 06:14 Carbon Dioxide 19.2 mmol/L (21-32) L 06/26/23 06:14 BUN 40 mg/dL (7-18) H 06/26/23 06:14 Creatinine 1.42 mg/dL (0.55-1.02) H 06/26/23 06:14 Est GFR (MDRD) Af Amer 46 (>60) L 06/26/23 06:14 Est GFR (MDRD) Non-Af 38 (>60) L 06/26/23 06:14 Glucose 214 mg/dL (65-99) H 06/26/23 06:14 POC Glucose (mg/dL) 181 mg/dL (65-99) H 06/26/23 05:07 Hemoglobin A1c 5.0 % 06/15/23 13:23 Calcium 8.5 mg/dL (8.5-10.1) 06/26/23 06:14 Corrected Calcium 9.6 mg/dL (8.5-10.1) 06/26/23 06:14 Magnesium 2.7 mg/dL (2.0-2.9) 06/26/23 06:14 Total Bilirubin 4.00 mg/dL (0.2-1.0) H 06/26/23 06:14 AST 265 Units/L (15-37) H 06/26/23 06:14 ALT 36 Units/L (12-78) 06/26/23 06:14 Alkaline Phosphatase 309 Units/L (46-116) H 06/26/23 06:14 B-Natriuretic Peptide 542 pg/mL (0-79) H 06/15/23 13:23 Total Protein 5.7 g/dL (6.4-8.2) L 06/26/23 06:14 Albumin 2.6 g/dL (3.4-5.0) L 06/26/23 06:14 Globulin 3.1 g/dL (2.5-4.5) 06/26/23 06:14 Albumin/Globulin Ratio 0.8 Ratio (1.1-2.1) L 06/26/23 06:14 Carcinoembryonic Ag 507.0 ng/mL 06/15/23 13:23 Specimen Type Clean catch urine 06/16/23 03:45 Urine Color [place] (YELLOW) 06/16/23 03:45 Urine Appearance Clear (CLEAR) 06/16/23 03:45 Urine pH 5.0 (5.0 - 8.0) 06/16/23 03:45 Ur Specific [place] 1.015 (1.000-1.030) 06/16/23 03:45 Urine Protein 2+ (NEGATIVE) 06/16/23 03:45 Urine Glucose (UA) Negative (NEGATIVE) 06/16/23 03:45 Urine Ketones Negative (NEGATIVE) 06/16/23 03:45 Urine Blood Negative (NEGATIVE) 06/16/23 03:45 Urine Nitrite Negative (NEGATIVE) 06/16/23 03:45 Urine Bilirubin Negative (NEGATIVE) 06/16/23 03:45 Urine Urobilinogen 1+ (NORMAL) 06/16/23 03:45 Ur Leukocyte Esterase Negative (NEGATIVE) 06/16/23 03:45 Urine RBC 0-2 /HPF (0-3) 06/16/23 03:45 Urine WBC None seen /HPF (0-5) 06/16/23 03:45 Ur Squamous Epith Cells Few /HPF (NEGATIVE) 06/16/23 03:45 Amorphous Sediment Trace /HPF (NEGATIVE) 06/16/23 03:45 Urine Bacteria Trace /HPF (NEGATIVE) 06/16/23 03:45 Hyaline Casts Moderate /LPF (NEGATIVE) 06/16/23 03:45 Ur Culture Indicated? Yes/culture set up 06/16/23 03:45 Tissue Pathology See comment. 06/17/23 09:00 Plan (1) Abdominal pain: Status: Acute Qualifiers: Abdominal location: generalized Qualified Code(s): R10.84 - Generalized abdominal pain (2) Mass of colon: Status: Acute Plan: PATHOLOGY REPORT PENDING. (3) Dehydration: Status: Acute (4) Generalized weakness: Status: Acute Plan: PT/OT (5) Weight loss: Status: Acute (6) Lower extremity edema: Status: Acute (7) Hypoalbuminemia: Status: Acute (8) Hypoproteinemia: Status: Acute (9) Generalized anxiety disorder: Status: Acute Plan: ALPRAZOLAM 0.5MG BID (10) DM II (diabetes mellitus, type II), controlled: Status: Chronic Qualifiers: Diabetes mellitus complication status: with hyperglycemia Diabetes mellitus fci insulin use: with termite exterminator helper use Qualified Code(s): E11.65 - Type 2 diabetes mellitus with hyperglycemia; Z79.4 - joint terminal attack controller (current) use of insulin Plan: OTBS ACHS, HUMULIN R SLIDING SCALE, CONTINUE HOME MEDS (11) HTN (hypertension): Status: Chronic Qualifiers: Hypertension type: primary hypertension Qualified Code(s): I10 - Essential (primary) hypertension Plan: CONTINUE HOME MEDS
[2023-06-26] MEDS: LASIX IVP SCH (13:21)
--- NOTE | 2023-06-26 16:34 | EKG ---
Test Reason : Chest Pain Blood Pressure : */* mmHG Vent. Rate : 90 BPM Atrial Rate : 90 BPM P-R Int : 162 ms QRS Dur : 78 ms QT Int : 362 ms P-R-T Axes : 115 -5 142 degrees QTc Int : 442 ms Normal sinus rhythm Possible Anterior infarct , age undetermined Abnormal ECG When compared with ECG of 05-SEP-2022 15:06, Borderline criteria for Anterior infarct are now present Nonspecific T wave abnormality, improved in Inferior leads T wave inversion now evident in Anterolateral leads Confirmed by Krunal Hassan ([id number]) on 06/27/2023 7:46:31 AM Referred By: Confirmed By: Krunal Hassan
[2023-06-26] MEDS ORDERED: XANAX PO PRN (16:44)
[2023-06-26] MEDS ORDERED: XANAX ONE (16:54)
[2023-06-26] MEDS ORDERED: VOLTAREN 1 % GEL MULTI DOSE TUBE TOP PRN (17:10)
[2023-06-26] MEDS ORDERED: VOLTAREN 1 % GEL MULTI DOSE TUBE ONE (17:19)
[2023-06-26] MEDS: SNACK - Diabetic Appropriate PO SCH (19:38)
[2023-06-26] MEDS: MILK OF MAGNESIA PO SCH (20:40)
[2023-06-26] MEDS: COLACE CAP 100 MG PO SCH (20:40)
[2023-06-27] MEDS: NS 1,000 ML IV 1,000 ML IV SCH ×2 (00:21→13:43)
[2023-06-27] MEDS: CLINIMIX 5 %/20 % 1,000 ML with MVI INJ (ADULT) 10 ML IV SCH ×2 (00:43)
[2023-06-27] MEDS ORDERED: DRUG FILTER EXTENSION SET ONE ×2 (02:54→02:55)
[2023-06-27 04:43] VITALS: RESP 6
[2023-06-27] MEDS: TORADOL 15 MG VIAL IVP SCH (05:39)
--- NOTE | 2023-06-27 07:24 | PCM.PROG ---
Progress Note - Progress Note for Day of Date of Exam: 06/24/23 - Subjective Subjective: IS CURRENTLY INPATIENT STATUS FOR TREATMENT OF COLON CANCER WITH SUSPECTED METS TO THE LUNGS AND LIVER, ABDOMINAL PAIN, DEHYDRATION, BILATERAL LOWER EXTREMITY EDEMA, GENERALIZED WEAKNESS, DECREASED APPETITE, AND WEIGHT LOSS. TODAY, SHE IS ALERT AND ORIENTED, LYING IN BED ON MORNING ROUNDS. SHE CONTINUES WITH COMPLAINTS OF GENERALIZED PAIN, WEAKNESS, AND DECREASED APPETITE. SHE REPORTS ONLY SLIGHT IMPROVEMENT IN PAIN SINCE YESTERDAY. ON EXAMINATION, HEART IS REGULAR IN RATE AND RHYTHM. BILATERAL LUNGS ARE NOTED WITH DIMINISHED LUNG SOUNDS THROUGHOUT. ABDOMEN IS ROUND, SOFT, AND NOTED WITH DIFFUSE TENDERNESS. WEAKNESS OF THE UPPER AND LOWER EXTREMITIES NOTED. THERE CONTINUES TO BE 2+ PITTING EDEMA OF UPPER AND LOWER EXTREMITIES. HER VITALS THIS MORNING ARE: 97.6-89-18-100%-103/56. LABS WERE OBTAINED. WBC 6.9, RBC 2.94, HGB 8.9, HCT 26.6, PLT COUNT 158, SODIUM 136, POTASSIUM 4.1, CHLORIDE 105, CARBON DIOXIDE 21.0, BUN 28, CREATININE 1.36, GLUCOSE 148, CALCIUM 8.2, TOTAL BILI 2.90, AST 202, ALT 27, ALK PHOS 386, TOTAL PROTEIN 5.8, ALBUMIN 2.6. SHE IS CURRENTLY RECEIVING: NORMAL SALINE AT 20 ML/HR, OTBS ACHS, TPN AT 60 ML/HR, HUMULIN R SLIDING SCALE, DURAGESIC 25MCG/HR TD PATCH, TORADOL 15MG IV Q8H, NYSTATIN POWDER BID, XANAX 0.25MG TID PRN, WELLBUTRIN XL 150MG DAILY, ALBUMIN 25% IV DAILY, MAALOX 30ML Q4H PRN. HER HOME MEDICATIONS OF FOLIC ACID, SYNTHROID, COZAAR, MECLIZINE PRN, TOPROL XL, HEMOCYTE PLUS WERE RESUMED. PHYSICAL THERAPY WAS ABLE TO GET HER UP TO THE CHAIR FOR A WHILE YESTERDAY, BUT PATIENT HAD MODERATE PAIN WHILE UP IN CHAIR. WE HAVE SCHEDULED AN APPOINTMENT WITH , ONCOLOGIST FOR TUESDAY. OTHERWISE, WE WILL FOLLOW UP WITH AM LABS AND CONTINUE TO MONITOR. TIME SPENT ON CLINICAL ASSESSMENT, REVIEWING LABS AND IMAGING, DECISION MAKING, AND DOCUMENTATION GREATER THAN 45 MINUTES. - Past Medical Family Social History Past Med/Fam/Surg Hx: No changes since H&P Allergies: Allergies oxycodone Allergy (Mild, Verified 06/23/23 12:40) codeine Adverse Reaction (Mild, Verified 06/23/23 12:40) - Review of Systems ROS: No change since H&P - Vital Signs and I&O's Vital Signs: Vital Signs Temperature 97.5 F Temperature 97.7 F Pulse Rate [Left Brachial] 87 Pulse Rate [Left Brachial] 106 Pulse Rate [Left Brachial] 93 Respiratory Rate 6 Respiratory Rate 14 Respiratory Rate 22 Respiratory Rate 22 Respiratory Rate 23 Blood Pressure [Left Arm] 98/56 Blood Pressure [Left Arm] 133/63 Blood Pressure [Left Arm] 138/64 O2 Sat by Pulse Oximetry 94 O2 Sat by Pulse Oximetry 100 O2 Sat by Pulse Oximetry 100 Intake and Output: Intake & Output 06/24/23 06/25/23 06/26/23 06/27/23 11:59 11:59 11:59 11:59 Intake Total 1926 3808 / 3808 2948 / 2948 2168 / 2168 Balance 1926 3808 / 3808 2948 / 2948 2168 / 2168 - Physical Exam Oriented: Normal Eyes: Normal Ear: Normal Nose: Normal Respiratory: Normal Cardiovascular: Edema (2+ PITTING EDEMA OF BILATERAL UPPER AND LOWER EXTREMITIES) : Normal Auscultation: Bowel Sounds: Normal Tenderness: Diffuse (soft abdomen with mild epigastric tenderness ..BS+) Skin: Normal Musculoskeletal: Normal Psychiatric: Normal Mood Description: Calm Affect: Normal Speech Pattern: Clear, Appropriate - Laboratory and Diagnostics Result Diagrams: 06/26/23 06:14 06/26/23 06:14 Labs: 06/16/23 03:45 Urine,Clean Catch Urine Culture - Final Laboratory WBC 9.0 X10^3/uL (3.6-10.0) 06/26/23 06:14 RBC 2.50 X10^6/uL (3.5-5.4) L 06/26/23 06:14 Hgb 8.0 g/dL (12.0-16.0) L 06/26/23 06:14 Hct 23.7 % (36.0-47.0) L 06/26/23 06:14 MCV 94.8 fL (80.0-100.0) 06/26/23 06:14 MCH 31.9 pg (27.0-34.0) 06/26/23 06:14 MCHC 33.7 g/dL (33.0-35.0) 06/26/23 06:14 RDW 21.6 % (11.6-16.5) H 06/26/23 06:14 Plt Count 143 X10^3/uL (150.0-450.0) L 06/26/23 06:14 Plt Count Comment Decreased (ADEQUATE) A 06/26/23 06:14 MPV 7.9 fL (7.4-11.0) 06/26/23 06:14 Neut % (Auto) 55.6 % (42.0-75.0) 06/26/23 06:14 Lymph % (Auto) 33.0 % (21.0-51.0) 06/26/23 06:14 [place] % (Auto) 9.3 % (0.0-13.0) 06/26/23 06:14 Eos % (Auto) 1.4 % (0.9-2.9) 06/26/23 06:14 Baso % (Auto) 0.7 % (0.2-1.0) 06/26/23 06:14 Neut # (Auto) 5.0 x10^3/uL (2.2-4.8) H 06/26/23 06:14 Lymph # (Auto) 3.0 X10^3/uL (1.3-2.9) H 06/26/23 06:14 [place] # (Auto) 0.8 x10^3/uL (0.3-0.8) 06/26/23 06:14 Eos # (Auto) 0.1 x10^3/uL (0.0-0.2) 06/26/23 06:14 Baso # (Auto) 0.1 X10^3/uL (0.0-0.1) 06/26/23 06:14 Absolute Nucleated RBC 0.1 /100WBC 06/26/23 06:14 Total Counted Cancelled 06/26/23 06:14 Neutrophils % (Manual) Cancelled 06/26/23 06:14 Band Neutrophils % Cancelled 06/26/23 06:14 Lymphocytes % (Manual) Cancelled 06/26/23 06:14 Monocytes % (Manual) Cancelled 06/26/23 06:14 Eosinophils % (Manual) Cancelled 06/26/23 06:14 Basophils % (Manual) Cancelled 06/26/23 06:14 Metamyelocytes % Cancelled 06/26/23 06:14 Myelocytes % Cancelled 06/26/23 06:14 Promyelocytes % Cancelled 06/26/23 06:14 Plt Morphology Comment Normal (NORMAL) 06/26/23 06:14 RBC Morphology Abnormal (NORMAL) A 06/26/23 06:14 Anisocytosis 1+ A 06/26/23 06:14 Target Cells Present 06/26/23 06:14 Ovalocytes Present 06/20/23 04:38 Schistocytes Slight A 06/23/23 05:32 Sodium 129 mmol/L (136-145) L 06/26/23 06:14 Corrected Sodium 132 mmol/L (136-145) L 06/26/23 06:14 Potassium 5.0 mmol/L (3.5-5.1) 06/26/23 06:14 Chloride 103 mmol/L (98-107) 06/26/23 06:14 Carbon Dioxide 19.2 mmol/L (21-32) L 06/26/23 06:14 BUN 40 mg/dL (7-18) H 06/26/23 06:14 Creatinine 1.42 mg/dL (0.55-1.02) H 06/26/23 06:14 Est GFR (MDRD) Af Amer 46 (>60) L 06/26/23 06:14 Est GFR (MDRD) Non-Af 38 (>60) L 06/26/23 06:14 Glucose 214 mg/dL (65-99) H 06/26/23 06:14 POC Glucose (mg/dL) 210 mg/dL (65-99) H 06/26/23 20:37 Hemoglobin A1c 5.0 % 06/15/23 13:23 Calcium 8.5 mg/dL (8.5-10.1) 06/26/23 06:14 Corrected Calcium 9.6 mg/dL (8.5-10.1) 06/26/23 06:14 Magnesium 2.7 mg/dL (2.0-2.9) 06/26/23 06:14 Total Bilirubin 4.00 mg/dL (0.2-1.0) H 06/26/23 06:14 AST 265 Units/L (15-37) H 06/26/23 06:14 ALT 36 Units/L (12-78) 06/26/23 06:14 Alkaline Phosphatase 309 Units/L (46-116) H 06/26/23 06:14 Creatine Kinase 915 Units/L (26-192) H 06/26/23 16:26 Troponin I High Sens 5.4 ng/L (4.0-60.0) 06/26/23 16:26 B-Natriuretic Peptide 542 pg/mL (0-79) H 06/15/23 13:23 Total Protein 5.7 g/dL (6.4-8.2) L 06/26/23 06:14 Albumin 2.6 g/dL (3.4-5.0) L 06/26/23 06:14 Globulin 3.1 g/dL (2.5-4.5) 06/26/23 06:14 Albumin/Globulin Ratio 0.8 Ratio (1.1-2.1) L 06/26/23 06:14 Carcinoembryonic Ag 507.0 ng/mL 06/15/23 13:23 Specimen Type Clean catch urine 06/16/23 03:45 Urine Color Monica (YELLOW) 06/16/23 03:45 Urine Appearance Clear (CLEAR) 06/16/23 03:45 Urine pH 5.0 (5.0 - 8.0) 06/16/23 03:45 Ur Specific [place] 1.015 (1.000-1.030) 06/16/23 03:45 Urine Protein 2+ (NEGATIVE) 06/16/23 03:45 Urine Glucose (UA) Negative (NEGATIVE) 06/16/23 03:45 Urine Ketones Negative (NEGATIVE) 06/16/23 03:45 Urine Blood Negative (NEGATIVE) 06/16/23 03:45 Urine Nitrite Negative (NEGATIVE) 06/16/23 03:45 Urine Bilirubin Negative (NEGATIVE) 06/16/23 03:45 Urine Urobilinogen 1+ (NORMAL) 06/16/23 03:45 Ur Leukocyte Esterase Negative (NEGATIVE) 06/16/23 03:45 Urine RBC 0-2 /HPF (0-3) 06/16/23 03:45 Urine WBC None seen /HPF (0-5) 06/16/23 03:45 Ur Squamous Epith Cells Few /HPF (NEGATIVE) 06/16/23 03:45 Amorphous Sediment Trace /HPF (NEGATIVE) 06/16/23 03:45 Urine Bacteria Trace /HPF (NEGATIVE) 06/16/23 03:45 Hyaline Casts Moderate /LPF (NEGATIVE) 06/16/23 03:45 Ur Culture Indicated? Yes/culture set up 06/16/23 03:45 Tissue Pathology See comment. 06/17/23 09:00 - Plan (1) Abdominal pain Status: Acute Qualifiers: Abdominal location: generalized Qualified Code(s): R10.84 - Generalized abdominal pain Plan: NORMAL SALINE AT KVO, TPN AT 70 ML/HR, OTBS ACHS, HUMULIN R SLIDING SCALE, DURAGESIC PATCH 25MCG/HR, NYSTATIN POWDER BID, XANAX 0.25MG TID PRN, WELLBUTRIN XL 150MG DAILY, ALBUMIN 25% IV DAILY, MAALOX 30ML Q4H PRN. RESUME HOME MEDS (2) Mass of colon Status: Acute Plan: ADENOCARCINOMA ON PATH REPORT. APPOINTMENT WITH ON TUESDAY (3) Dehydration Status: Acute (4) Generalized weakness Status: Acute Plan: PT/OT (5) Weight loss Status: Acute (6) Lower extremity edema Status: Acute (7) Hypoalbuminemia Status: Acute (8) Hypoproteinemia Status: Acute (9) Generalized anxiety disorder Status: Acute Plan: ALPRAZOLAM 0.5MG BID (10) DM II (diabetes mellitus, type II), controlled Status: Chronic Qualifiers: Diabetes mellitus correction insulin use: with correction use Diabetes mellitus complication status: with hyperglycemia Qualified Code(s): E11.65 - Type 2 diabetes mellitus with hyperglycemia; Z79.4 - half-way (current) use of insulin Plan: OTBS ACHS, HUMULIN R SLIDING SCALE, CONTINUE HOME MEDS (11) HTN (hypertension) Status: Chronic Qualifiers: Hypertension type: primary hypertension Qualified Code(s): I10 - Essential (primary) hypertension Plan: CONTINUE HOME MEDS
[2023-06-27] MEDS ORDERED: MORPHINE SULFATE INJ 2 MG INJ ONE (08:08)
[2023-06-27] MEDS ORDERED: ISOPTO ATROPINE ONE (08:08)
[2023-06-27] MEDS: ISOPTO ATROPINE SL PRN ×2 (08:17→15:03)
[2023-06-27] MEDS: COZAAR PO SCH (08:29)
[2023-06-27] MEDS: ALBUMIN HUMAN 25%- 100 ML 100 ML IV SCH (08:29)
[2023-06-27] MEDS: LASIX IVP SCH (08:30)
[2023-06-27] MEDS: MEGACE PO SCH (08:30)
[2023-06-27] MEDS: HEMOCYTE-PLUS PO SCH (08:30)
[2023-06-27] MEDS: FOLIC ACID TAB 1 MG PO SCH (08:30)
[2023-06-27] MEDS: SYNTHROID 50 mcg TAB PO SCH (08:31)
[2023-06-27] MEDS: MIRALAX POWDER (1 DOSE 17 G) PO SCH (08:31)
[2023-06-27] MEDS: PROTONIX INJ 40 MG VIAL IVP SCH (08:31)
[2023-06-27] MEDS: WELLBUTRIN XL 150 MG (DAILY) PO SCH (08:32)
[2023-06-27] MEDS ORDERED: ATIVAN INJ 2 MG VIAL IVP ONE (08:32)
[2023-06-27] MEDS: TOPROL XL PO SCH (08:32)
[2023-06-27] MEDS ORDERED: ATIVAN INJ 2 MG VIAL ONE (08:33)
[2023-06-27] MEDS ORDERED: VERSED 100 MG in NS 100 ML IV 80 ML IV PRN (10:18)
[2023-06-27] MEDS: MORPHINE SULFATE PCA 30 MG IVP PRN ×2 (14:07→18:48)
[2023-06-27 20:56] VITALS: BP 52/30; PULSE 70; TEMP 97.7; O2SAT 94
== END 2023-06-27 23:30 | disposition expired | DRG 392 ==
LOC: MED/SURG → OBSVTOIN 11:07 → MED/SURG 06-27 09:09
PROVIDERS: ADMIT Internal Medicine; ATTEND Internal Medicine
DX: C78.7 Secondary malignant neoplasm of liver and intrahepatic bile duct; E77.8 Other disorders of glycoprotein metabolism; C18.2 Malignant neoplasm of ascending colon; E11.65 Type 2 diabetes mellitus with hyperglycemia; I87.2 Venous insufficiency (chronic) (peripheral); E83.42 Hypomagnesemia; E86.0 Dehydration; Z79.4 Long term (current) use of insulin; K63.89 Other specified diseases of intestine; R60.0 Localized edema; F41.1 Generalized anxiety disorder; K44.9 Diaphragmatic hernia without obstruction or gangrene; R06.02 Shortness of breath; I46.9 Cardiac arrest, cause unspecified; R26.89 Other abnormalities of gait and mobility; R10.84 Generalized abdominal pain; C18.0 Malignant neoplasm of cecum; R63.4 Abnormal weight loss; E88.09 Other disorders of plasma-protein metabolism, not elsewhere classified; R42 Dizziness and giddiness; I10 Essential (primary) hypertension; R53.1 Weakness